=== PATIENT | male | born 1930 | race Caucasian/White ===

== ENCOUNTER 2017-08-21 12:26 | Emergency (ER) | payer MEDICARE, BC ==
[2017-08-21] MEDS ORDERED: ACETAMINOPHEN 500 MG TABLET PO ONE (13:04)
--- NOTE | 2017-08-21 13:09 | Emergency Department Record ---
History of Present Illness - General Chief Complaint: Fall Injury Stated Complaint: LEFT SIDE RIB PAIN Time Seen by Provider: 08/21/17 12:59 Source: Patient Mode of Arrival: Ambulatory Limitations: No limitations - History of Present Illness Initial Comments: 87 yo male presents with two days of left rib pain and tenderness. He was walking and tripped in a hallway hitting a hand rail. He hit his left ribs near the breast area. No head injury, contusions or abrasions. No abdominal tenderness or pain. No shortness of breath. No neck pain. No lacerations. No bruising. No blood thinners. 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 Witnessed: No Place Fall Occurred: Home Loss of Consciousness: None Prolonged Down Time?: No Symptoms Prior to Fall: None Location: Chest Quality: Aching Context: Tripped/slipped Associated Symptoms: Denies - [place] Coma Scale Eye Response: (4) Open spontaneously Motor Response: (6) Obeys commands Verbal Response: (5) Oriented [place] Total: 15 - Related Data Previous Rx's Medication Instructions Recorded Ciprofloxacin HCl [Cipro] 500 mg PO Q12H #20 tablet 06/23/15 Allergies Allergy/AdvReac Type Severity Reaction Status Date / Time No Known Drug Allergies Allergy Verified 08/21/17 12:45 Travel Screening - Travel/Exposure Within Last 30 Days Have you traveled within the last 30 days?: No - Travel/Exposure Within Last Year Have you traveled outside the [place] in the last year?: No - Additonal Travel Details Have you been exposed to anyone with a communicable illness?: No - Travel Symptoms Symptom Screening: None Review of Systems Constitutional: Denies: Chills, Fever, Weakness Eyes: Denies: Eye discharge ENT: Denies: Congestion, Throat pain Respiratory: Denies: Cough, Dyspnea, Hemoptysis, Stridor, Wheezes Cardiovascular: Reports: Chest pain (left ribs). Denies: Edema, Palpitations, Syncope Endocrine: Denies: Fatigue Gastrointestinal: Denies: Abdominal pain, Constipation, Diarrhea, Nausea, Vomiting Genitourinary: Denies: Dysuria, Frequency, Hematuria Musculoskeletal: Denies: Arthralgia, Back pain, Joint swelling, Myalgia Skin: Denies: Bruising, Change in color, Rash Neurological: Denies: Confusion, Headache, Numbness, Vertigo, Weakness Psychiatric: Denies: Anxiety Hematological/Lymphatic: Denies: Blood Clots, Easy bleeding, Easy bruising, Swollen glands Past Medical History - SOCIAL HISTORY Smoking Status: Former smoker Alcohol Use: None Drug Use: None - RESPIRATORY Hx Respiratory Disorders: Yes Hx COPD: Yes Hx Dyspnea: Yes (with exertion) - CARDIOVASCULAR Hx Cardio Disorders: No - NEURO Hx Neuro Disorders: No Comment:: some loss of memory - GI Hx GI Disorders: No - Hx Genitourinary Disorders: Yes Hx Bladder Problem: Yes (onset 03/29) Hx Prostate Problems: Yes (enlarged prostate) Hx UTI: Yes (finished antibiotics week ago) Comment:: currently has indwelling catheter since 03/29 - ENDOCRINE Hx Endocrine Disorders: No - MUSCULOSKELETAL Hx Musculoskeletal Disorders: Yes Hx Arthritis: Yes (hands) - PSYCH Hx Psych Problems: No - HEMATOLOGY/ONCOLOGY Hx Hematology/Oncology Disorders: No Family Medical History Any Significant Family History?: Yes Hx Cancer: Mother Hx Heart Disease: Father Hx HTN: Father Physical Exam - General General Appearance: Alert, Oriented x3, Cooperative, No acute distress, Other ( appears comfortable in no pain) Limitations: No limitations - Head Head exam: Atraumatic, Normocephalic, Normal inspection Head exam detail: negative: Abrasion, Contusion, Hematoma - Eye Eye exam: Normal appearance - ENT ENT exam: Normal exam, Mucous membranes moist Ear exam: Normal external inspection Nasal Exam: Normal inspection Mouth exam: Normal external inspection Throat exam: Normal inspection - Neck Neck exam: Normal inspection, Full ROM. negative: Tenderness - Respiratory Respiratory exam: Normal lung sounds bilaterally, Chest wall tenderness (tender lateral upper ribs on the left, normal inspection, no SQ air. NON tender LUQ). negative: Accessory muscle use, Decreased breath sounds, Prolonged expiratory , Rhonchi, Stridor, Wheezes - Cardiovascular Cardiovascular Exam: Regular rate, Normal rhythm, Normal heart sounds - GI/Abdominal GI/Abdominal exam: Soft. negative: Distended, Guarding, Rebound, Rigid, Tenderness - Rectal Rectal exam: Deferred - exam: Deferred - Extremities Extremities exam: Normal inspection, Full ROM, Normal capillary refill. negative: Joint swelling, Pedal edema, Tenderness - Back Back exam: Reports: Normal inspection, Full ROM. Denies: CVA tenderness (R), CVA tenderness (L), Muscle spasm, Paraspinal tenderness, Rash noted, Tenderness - Neurological Neurological exam: Alert, Normal gait, Oriented X3, Reflexes normal - Psychiatric Psychiatric exam: Normal affect, Normal mood - Skin Skin exam: Dry, Intact, Normal color, Warm. negative: Abrasion, Cyanosis, Diaphoretic, Erythema Course Vital Signs 08/21/17 12:46 Temperature 98 F Pulse Rate 65 Respiratory 20 Rate Blood Pressure 176/94 Pulse Ox 98 - Reevaluation(s) Reevaluation #1: 08/21/17 14:44 The XR was read as no acute process No definite Fx DC with instructions for pain control and IS per teaching with RT. 08/21/17 14:44 Disposition Disposition: Discharge Clinical Impression: Contusion of rib on left side Qualifiers: Encounter type: initial encounter Qualified Code(s): S20.212A - Contusion of left front wall of thorax, initial encounter Disposition: Home, Self-Care Condition: (1) Good Instructions: Fall Prevention for Older Adults (ED), Rib Contusion (ED) Additional Instructions: Call your doctor to be seen this week to review this ER visit Return sooner if worse, short of breath, cough, fever or any new concerns Use the Incentive Spirometer as taught to encourage good breathing Tylenol as directed for pain. Forms: Patient Portal Access Time of Disposition: 14:45 Quality - Quality Measures Quality Measures: N/A - Blood Pressure Screening Does Patient Have Any of the Following: No Blood Pressure Classification: Hypertensive Reading Systolic Measurement: 176 Diastolic Measurement: 94 Screening for High Blood Pressure: < Pre-Hypertensive BP, F/U Documented > [ G8950] Pre-Hypertensive Follow-up Interventions: Referral to alternative/primary care provider.
--- NOTE | 2017-08-22 10:04 | RADIOLOGY REPORT ---
EXAM: LEFT RIBS WITH PA CHEST HISTORY: PATIENT FELL TWO DAYS AGO STRIKING LEFT SIDE ON RAILING WITH UPPER LATERAL LEFT RIB PAIN. TECHNIQUE: AP oblique views of the left ribs and PA view of the chest were obtained. Comparison: None. Encounter: Initial. FINDINGS: Diffuse osteopenia consistent with osteoporosis. This limits evaluation for undisplaced rib fractures. No definite left rib fracture identified. No pneumothorax or pleural effusion evident. Calcification and torsion of the aorta. The lungs appear somewhat hyperinflated suggesting underlying COPD. IMPRESSION: OSTEOPOROSIS. NO DEFINITE ACUTE LEFT RIB FRACTURE IDENTIFIED. JOB NUMBER: [id number] MTDD
== END 2017-08-21 14:59 | disposition home or self-care (01) ==
LOC: ER 12:26
DX: S20.212A Contusion of left front wall of thorax, initial encounter (principal); J44.9 Chronic obstructive pulmonary disease, unspecified; Z87.891 Personal history of nicotine dependence; W01.198A Fall on same level from slipping, tripping and stumbling with subsequent striking against other object, initial encounter; Y92.009 Unspecified place in unspecified non-institutional (private) residence as the place of occurrence of the external cause
CPT/HCPCS: 94010; 99283; 99284

== ENCOUNTER 2017-08-23 17:06 | Emergency (ER) | payer MEDICARE, BC ==
[2017-08-23] MEDS ORDERED: ACETAMINOPHEN 325 MG TAB PO ONE (17:25)
--- NOTE | 2017-08-23 17:30 | Emergency Department Record ---
History of Present Illness - General Chief complaint: Pain Stated complaint: BRUISE LT SIDE RIBS/PAIN Time Seen by Provider: 08/23/17 17:19 Source: Patient, Family Mode of Arrival: Ambulatory Limitations: No limitations - History of Present Illness Initial comments: The patient is here due to worsening L rib pain. He fell 2 days ago and injured the L ribs. The patient was then seen in the ER and had neg xrays and was discharged to home. Now the pain is not getting better so the patient's wanted him seen again. He also is not using the IS like he is supposed to. The patient's family deny any cough, fever, CP, SOB, or LUIS. MD Complaint: Other Onset/Timin -: Days(s) Location: Left, Other Quality: Aching Consistency: Constant Improves with: Nothing Worsens with: Walking, Other Associated Symptoms: Denies other symptoms - Related Data Previous Rx's Medication Instructions Recorded Ciprofloxacin HCl [Cipro] 500 mg PO Q12H #20 tablet 06/23/15 Allergies Allergy/AdvReac Type Severity Reaction Status Date / Time No Known Drug Allergies Allergy Verified 08/21/17 12:45 Travel Screening - Travel/Exposure Within Last 30 Days Have you traveled within the last 30 days?: No Review of Systems Constitutional: Denies: Chills, Fever Eyes: Denies: Eye discharge ENT: Denies: Congestion Respiratory: Denies: Cough, Dyspnea, Hemoptysis Past Medical History - SOCIAL HISTORY Smoking Status: Former smoker Alcohol Use: None Drug Use: None - RESPIRATORY Hx Respiratory Disorders: Yes Hx COPD: Yes Hx Dyspnea: Yes (with exertion) - CARDIOVASCULAR Hx Cardio Disorders: No - NEURO Hx Neuro Disorders: No Comment:: some loss of memory - GI Hx GI Disorders: No - Hx Genitourinary Disorders: Yes Hx Bladder Problem: Yes (onset 03/29) Hx Prostate Problems: Yes (enlarged prostate) Hx UTI: Yes (finished antibiotics week ago) Comment:: currently has indwelling catheter since 03/29 - ENDOCRINE Hx Endocrine Disorders: No - MUSCULOSKELETAL Hx Musculoskeletal Disorders: Yes Hx Arthritis: Yes (hands) - PSYCH Hx Psych Problems: No - HEMATOLOGY/ONCOLOGY Hx Hematology/Oncology Disorders: No Family Medical History Any Significant Family History?: Yes Hx Cancer: Mother Hx Heart Disease: Father Hx HTN: Father Physical Exam - General General Appearance: Alert, Cooperative, No acute distress - Head Head exam: Atraumatic, Normocephalic, Normal inspection - Eye Eye exam: Normal appearance, PERRL - Neck Neck exam: Normal inspection, Full ROM. negative: Tenderness - Respiratory Respiratory exam: Normal lung sounds bilaterally, Chest wall tenderness ( Palpation of the L mid lateral ribs does reproduce the pain 100%. ). negative: Respiratory distress, Rhonchi, Stridor, Wheezes - Cardiovascular Cardiovascular Exam: Regular rate, Normal rhythm, Normal heart sounds - GI/Abdominal GI/Abdominal exam: Soft, Normal bowel sounds. negative: Tenderness - Extremities Extremities exam: Normal inspection, Full ROM, Normal capillary refill. negative: Tenderness Course Vital Signs 08/23/17 17:20 Temperature 97.9 F Pulse Rate 78 Respiratory 20 Rate Blood Pressure 172/107 Pulse Ox 96 - Reevaluation(s) Reevaluation #1: The patient is doing very well at this time. He denies any new pain or discomfort. I did discuss the CT report with the patient's and relayed the neg rib fx report. The CT does demonstrate multiple thoracic Compression fx's and the patient's states he has been complaining of back pain for a LONG time. They are to see their PCP next week for further evaluation and to bring the official CT report there. 08/23/17 18:15 Medical Decision Making - Data Complexity MDM Data: X-Ray Ordered and/or Reviewed - Radiology Data Radiology results: Report reviewed (CT: No rib fx's but multiple mild age indeterminent thoracic spine fx's.) Disposition Disposition: Discharge Clinical Impression: Contusion of rib on left side Qualifiers: Encounter type: subsequent encounter Qualified Code(s): S20.212D - Contusion of left front wall of thorax, subsequent encounter Disposition: Home, Self-Care Condition: (2) Stable Instructions: Pain Management in the Elderly (ED), Rib Contusion (ED) Additional Instructions: Please continue the Tylenol for pain. Please continue the Incentive Spirometer as previously instructed. Follow up with your PCP next week for recheck and return to the ER for any worsening symptoms. Forms: Patient Portal Access Time of Disposition: 18:14 Quality - Quality Measures Quality Measures: N/A - Blood Pressure Screening View Details: Yes Does Patient Have Any of the Following: No, Active Dx of HTN Blood Pressure Classification: Hypertensive Reading Systolic Measurement: 172 Diastolic Measurement: 107 Screening for High Blood Pressure: Patient Exclusion, Hx of HTN [G9945]
--- NOTE | 2017-08-24 22:18 | CT SCAN REPORT ---
EXAM: CT SCAN CHEST WO CONTRAST HISTORY: FALL. LEFT ANTERIOR RIB PAIN. TECHNIQUE: CT chest without contrast. Lack of IV contrast limits evaluation of the mediastinum and hilum. COMPARISON: Chest x-ray and rib series 08/21/17. FINDINGS: No convincing evidence for mediastinal or hilar adenopathy. Atheromatous change and ectasia of the thoracic aorta. Coronary artery calcification. The heart and pericardium are otherwise unremarkable. Limited evaluation of the upper abdomen shows severe atheromatous changes. Nodularity of the left adrenal gland. Osseous structures of the thorax show mild age- indeterminate compression deformities of T12, T11, T6, and T5. Negative for left rib fracture. No pneumothorax. The visualized airways are patent. Minor emphysematous changes in the lung apices. Lungs are otherwise clear. IMPRESSION: 1. NEGATIVE FOR LEFT RIB FRACTURE. 2. 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 JOB NUMBER: [id number] MTDD
== END 2017-08-23 18:26 | disposition home or self-care (01) ==
LOC: ER 17:06
DX: S20.212A Contusion of left front wall of thorax, initial encounter (principal); M48.54XA Collapsed vertebra, not elsewhere classified, thoracic region, initial encounter for fracture; J44.9 Chronic obstructive pulmonary disease, unspecified; Z87.891 Personal history of nicotine dependence; W01.198A Fall on same level from slipping, tripping and stumbling with subsequent striking against other object, initial encounter; Y92.009 Unspecified place in unspecified non-institutional (private) residence as the place of occurrence of the external cause
CPT/HCPCS: 71250; 99283

== ENCOUNTER 2017-11-12 11:18 | Emergency (ER) | payer MEDICARE, BC ==
--- NOTE | 2017-11-12 11:57 | Emergency Department Record ---
History of Present Illness - General Chief Complaint: Fall Injury Stated Complaint: FALL/BACK AND RIB PAIN Time Seen by Provider: 11/12/17 11:41 Source: Patient, Family Mode of Arrival: Ambulatory Limitations: No limitations - History of Present Illness Initial Comments: 87 yo male presents with back and left rib pain. He fell two days ago at home on steps. His pain is not better. He had similar location of pain in August after a fall. CT demonstrated compression fractures at T11,12 and T5,6. He has followed up with his PCP and had additional testing that demonstrated osteoporosis. He had elected not to take the shots for osteoporosis. He his his forehead. No headache or LOC. No neck pain. No cough, cold or recent flu. The patient lives with his . She states he is in his usual health. He does not require a walker or cane. No recent illness or abrupt changes in his health. MD Complaint: Fall Onset/Timin -: Days(s) Fall From: Other When Fall Occurred: Unsure, # Days [employer] Fall Witnessed: No Place Fall Occurred: Home Loss of Consciousness: None Prolonged Down Time?: No Symptoms Prior to Fall: None, Other Location: Head, Chest, Back Quality: Aching Associated Symptoms: Denies - [place] Coma Scale Eye Response: (4) Open spontaneously Motor Response: (6) Obeys commands Verbal Response: (5) Oriented [place] Total: 15 - Related Data Home Medications Medication Instructions Recorded Confirmed Last Taken Multivitamin [Multiple Vitamins] 1 each PO 11/12/17 11/12/17 Allergies Allergy/AdvReac Type Severity Reaction Status Date / Time No Known Drug Allergies Allergy Verified 08/21/17 12:45 Travel Screening - Travel/Exposure Within Last 30 Days Have you traveled within the last 30 days?: No - Travel/Exposure Within Last Year Have you traveled outside the [place] in the last year?: No - Additonal Travel Details Have you been exposed to anyone with a communicable illness?: No - Travel Symptoms Symptom Screening: None Review of Systems Constitutional: Denies: Chills, Fever, Malaise, Weakness Eyes: Denies: Eye discharge, Eye pain, Photophobia, Vision change ENT: Denies: Congestion, Throat pain Respiratory: Denies: Cough, Dyspnea Cardiovascular: Reports: Chest pain (rib pain). Denies: Palpitations, Syncope Endocrine: Denies: Fatigue, Polydipsia, Polyuria Gastrointestinal: Denies: Abdominal pain, Diarrhea, Nausea, Vomiting Genitourinary: Denies: Dysuria, Frequency, Hematuria Musculoskeletal: Reports: As per HPI, Back pain, Myalgia. Denies: Arthralgia, Neck pain Skin: Denies: Bruising, Change in color, Rash Neurological: Denies: Confusion, Headache, Numbness, Vertigo, Weakness Psychiatric: Denies: Anxiety Hematological/Lymphatic: Denies: Blood Clots, Easy bleeding, Easy bruising, Swollen glands Past Medical History - SOCIAL HISTORY Smoking Status: Former smoker Alcohol Use: None Drug Use: None - RESPIRATORY Hx Respiratory Disorders: Yes Hx COPD: Yes Hx Dyspnea: Yes (with exertion) - CARDIOVASCULAR Hx Cardio Disorders: No - NEURO Hx Neuro Disorders: No Comment:: some loss of memory - GI Hx GI Disorders: No - Hx Genitourinary Disorders: Yes Hx Bladder Problem: Yes (onset 03/29) Hx Prostate Problems: Yes (enlarged prostate) Hx UTI: Yes (finished antibiotics week ago) Comment:: currently has indwelling catheter since 03/29 - ENDOCRINE Hx Endocrine Disorders: No - MUSCULOSKELETAL Hx Musculoskeletal Disorders: Yes Hx Arthritis: Yes (hands) - PSYCH Hx Psych Problems: No - HEMATOLOGY/ONCOLOGY Hx Hematology/Oncology Disorders: No Family Medical History Any Significant Family History?: No Hx Cancer: Mother Hx Heart Disease: Father Hx HTN: Father Physical Exam - General General Appearance: Alert, Oriented x3, Cooperative, No acute distress, Other ( calm relaxed, answers questions well) Limitations: No limitations - Head Head exam: Normocephalic. negative: Atraumatic, Normal inspection Head exam detail: Abrasion Image of Face/Head: 1 - faint 3cm bruise, intact skin - Eye Eye exam: Normal appearance, PERRL. negative: Conjunctival injection, Periorbital swelling - ENT ENT exam: Normal exam, Mucous membranes moist, Normal external ear exam, Normal orophraynx. negative: Mucous membranes dry Ear exam: Normal external inspection Nasal Exam: Normal inspection Mouth exam: Normal external inspection Teeth exam: Normal inspection Throat exam: Normal inspection - Neck Neck exam: Normal inspection, Full ROM. negative: Tenderness - Respiratory Respiratory exam: Normal lung sounds bilaterally, Chest wall tenderness (left lateral ribs mid). negative: Respiratory distress - Cardiovascular Cardiovascular Exam: Regular rate, Normal rhythm, Normal heart sounds Peripheral Pulses: 2+: Radial (R), Radial (L) - GI/Abdominal GI/Abdominal exam: Soft. negative: Distended, Guarding, Rebound, Rigid, Tenderness - Rectal Rectal exam: Deferred - exam: Deferred - Extremities Extremities exam: Normal inspection, Full ROM, Normal capillary refill. negative: Joint swelling, Pedal edema, Tenderness - Back Back exam: Reports: Normal inspection, Full ROM, Paraspinal tenderness, Tenderness, Vertebral tenderness (mild mid to lower), Other (No brusing, normal inspection, very mild tenderness). Denies: CVA tenderness (R), CVA tenderness ( L), Muscle spasm, Rash noted - Neurological Neurological exam: Alert, Normal gait, Oriented X3. negative: Abnormal gait, Altered, Motor sensory deficit - Psychiatric Psychiatric exam: Normal affect, Normal mood. negative: Agitated, Anxious - Skin Skin exam: Dry, Intact, Normal color, Warm Course - Reevaluation(s) Reevaluation #1: The prior report was reviewed from August He is 97% on Room Air 11/12/17 11:57 11/12/17 12:[address] of the Head and Cervical spine were reviewed. No acute injuries or changes. 11/12/17 13:[address] of the chest was reviewed. New since August at small compression fractures of T4 and T8. No other acute injuries. I again encouraged that patient and to see their family doctor for ongoing evaluation of his osteoporosis. His vitals are unremarkable with 97% on room air. Pain is tolerated well. Disposition Disposition: Discharge Clinical Impression: Compression fracture Disposition: Home, Self-Care Condition: (1) Good Instructions: Vertebral Compression Fracture (ED), Fall Prevention for Older Adults (ED) Additional Instructions: Return to the ED if worse or uncontrolled pain Take Tylenol as directed Call your doctor first of the week for very close follow up of the compression fractures and your osteopenia Forms: Patient Portal Access Time of Disposition: 13:13 Quality - Quality Measures Quality Measures: N/A - Blood Pressure Screening Does Patient Have Any of the Following: No Blood Pressure Classification: Pre-Hypertensive BP Reading Systolic Measurement: 125 Diastolic Measurement: 80 Screening for High Blood Pressure: < Pre-Hypertensive BP, F/U Documented > [ G8950] Pre-Hypertensive Follow-up Interventions: Referral to alternative/primary care provider.
[2017-11-12] MEDS ORDERED: ACETAMINOPHEN 500 MG TABLET PO ONE (13:11)
--- NOTE | 2017-11-12 18:43 | CT SCAN REPORT ---
EXAM: CT SCAN HEAD WO CONTRAST HISTORY: FALL, FOREHEAD INJURY. TECHNIQUE: CT of the brain is performed without contrast. COMPARISON: None. FINDINGS: The ventricles and subarachnoid spaces are prominent, likely related to atrophy. Areas of hypodensity are present in the white matter, likely the result of chronic small vessel ischemic change. No mass or mass effect. No intra or extraaxial hemorrhage. No CT evidence for large acute territorial infarct. No fracture or acute osseous abnormality identified. Mild mucosal thickening in the right maxillary sinus and in a few of the ethmoid air cells. IMPRESSION: 1. ATROPHY AND CHRONIC SMALL VESSEL ISCHEMIC CHANGE. 2. NO MASS, HEMORRHAGE, OR ACUTE INTRACRANIAL PROCESS IDENTIFIED. JOB NUMBER: [id number] MTDD
--- NOTE | 2017-11-12 18:48 | CT SCAN REPORT ---
EXAM: CT SCAN CERVICAL SPINE WO CONTRAST HISTORY: FALL, POSTERIOR NECK PAIN. TECHNIQUE: CT of the cervical spine performed without contrast. COMPARISON: None. FINDINGS: There is reversal of the normal lordotic curvature. No fracture or acute osseous abnormality. Diffuse arthritic changes are present throughout the cervical spine. Disc space narrowing is present at all levels. Uncovertebral spurring and facet arthritic changes are present at multiple levels. There is no soft tissue swelling. Arthritic changes are present in the atlantoaxial joint. Neural foraminal narrowing is present at multiple levels. IMPRESSION: 1. REVERSAL OF THE NORMAL LORDOTIC CURVATURE, WHICH IS NONSPECIFIC, POSSIBLY DUE TO PATIENT POSITIONING OR MUSCLE SPASM. 2. DIFFUSE ARTHRITIC CHANGES THROUGHOUT THE CERVICAL SPINE. 3. NO FRACTURE OR ACUTE OSSEOUS ABNORMALITY. JOB NUMBER: [id number] [facility]
--- NOTE | 2017-11-12 18:57 | CT SCAN REPORT ---
EXAM: CT SCAN CHEST WO CONTRAST HISTORY: FALL, LEFT CHEST INJURY AND CHEST PAIN. TECHNIQUE: CT of the thorax is performed without intravenous contrast. COMPARISON: CT of the thorax 08/23/2017. FINDINGS: No mediastinal mass or hematoma. There are atherosclerotic changes in the thoracic aorta with no aneurysm identified. There are coronary artery calcifications. No lung consolidation. No suspicious lung mass or nodule. There is no pleural or pericardial effusion. No rib fracture seen. Limited upper abdominal images are unremarkable. Mild new compression deformity of T8 since the previous study. Mild compression deformity of T4 is new since the previous study. Old compression fractures of T5 , T6, T11, and T12. IMPRESSION: 1. MILD COMPRESSION DEFORMITIES OF T4 AND T8, WHICH ARE NEW SINCE THE PREVIOUS STUDY. OLD COMPRESSION FRACTURES OF T5, T6, T11, AND T12 ARE PRESENT. 2. OTHERWISE, NO ACUTE THORACIC PROCESS. 3. CORONARY ARTERY CALCIFICATIONS. 4. PLEASE SEE ABOVE FOR FULL DISCUSSION. JOB NUMBER: [id number] MTDD
== END 2017-11-12 13:25 | disposition home or self-care (01) ==
LOC: ER 11:18
DX: S22.040A Wedge compression fracture of fourth thoracic vertebra, initial encounter for closed fracture (principal); S22.060A Wedge compression fracture of T7-T8 vertebra, initial encounter for closed fracture; S00.83XA Contusion of other part of head, initial encounter; M54.2 Cervicalgia; J44.9 Chronic obstructive pulmonary disease, unspecified; F03.90 Unspecified dementia, unspecified severity, without behavioral disturbance, psychotic disturbance, mood disturbance, and anxiety; W10.9XXA Fall (on) (from) unspecified stairs and steps, initial encounter; Z87.891 Personal history of nicotine dependence; Y92.009 Unspecified place in unspecified non-institutional (private) residence as the place of occurrence of the external cause
CPT/HCPCS: 70450; 71250; 72125; 99283; 99284

== ENCOUNTER 2018-04-28 18:58 | Emergency (ER) | payer MEDICARE, BC ==
--- NOTE | 2018-04-28 19:26 | Emergency Department Record ---
History of Present Illness - General Chief Complaint: Confusion Stated Complaint: LATHARGIC,CONFUSION Time Seen by Provider: 04/28/18 19:21 Source: Family Mode of Arrival: Ambulatory Limitations: No limitations - History of Present Illness Initial Comments: 88 yo male with a history of dementia and COPD presents to ED for increased confusion per his . Patient denies chest pain, abdominal pain, fevers, chills, abdominal pain, or recent illness. Patient denies cough symptoms as well. MD Complaint: Confusion Onset/Timin -: Hour(s) Consistency: Intermittent Context: Other Associated Symptoms: Denies other symptoms - [place] Coma Scale Eye Response: (4) Open spontaneously Motor Response: (6) Obeys commands Verbal Response: (5) Oriented Trey Total: 15 - Symptoms of Stroke Onset of Symptoms Date: 04/28/18 Symptom Onset Unknown: Yes Symptoms of stroke: Onset of Confusion, Speech Dysfunction Baseline State End Date: 04/27/18 Baseline State End Time: 23:00 - Related Data Allergies Allergy/AdvReac Type Severity Reaction Status Date / Time No Known Drug Allergies Allergy Verified 08/21/17 12:45 Travel Screening - Travel/Exposure Within Last 30 Days Have you traveled within the last 30 days?: No - Travel/Exposure Within Last Year Have you traveled outside the [place] in the last year?: No - Additonal Travel Details Have you been exposed to anyone with a communicable illness?: No - Travel Symptoms Symptom Screening: None Review of Systems Constitutional: Denies: Chills, Fever, Malaise, Night sweats Eyes: Denies: Eye discharge, Eye pain ENT: Denies: Congestion, Ear pain, Epistaxis Respiratory: Denies: Cough, Dyspnea Cardiovascular: Denies: Chest pain, Dyspnea on exertion Endocrine: Denies: Fatigue, Heat or cold intolerance Gastrointestinal: Denies: Abdominal pain, Nausea, Vomiting Genitourinary: Denies: Incontinence, Retention Musculoskeletal: Denies: Arthralgia, Back pain Skin: Denies: Bruising, Change in color Neurological: Denies: Abnormal gait, Confusion, Headache, Seizure Psychiatric: Denies: Anxiety Hematological/Lymphatic: Denies: Anemia, Blood Clots Past Medical History - SOCIAL HISTORY Smoking Status: Former smoker Alcohol Use: None Drug Use: None - RESPIRATORY Hx Respiratory Disorders: Yes Hx COPD: Yes Hx Dyspnea: Yes (with exertion) - CARDIOVASCULAR Hx Cardio Disorders: No - NEURO Hx Neuro Disorders: Yes Hx Dementia: Yes Comment:: some loss of memory - GI Hx GI Disorders: No - Hx Genitourinary Disorders: Yes Hx Bladder Problem: Yes (onset 03/29) Hx Prostate Problems: Yes (enlarged prostate) Hx UTI: Yes - ENDOCRINE Hx Endocrine Disorders: No - MUSCULOSKELETAL Hx Musculoskeletal Disorders: Yes Hx Arthritis: Yes (hands) - PSYCH Hx Psych Problems: No - HEMATOLOGY/ONCOLOGY Hx Hematology/Oncology Disorders: No Family Medical History Any Significant Family History?: No Hx Cancer: Mother Hx Heart Disease: Father Hx HTN: Father Physical Exam - General General Appearance: Alert, Oriented x3, Cooperative, No acute distress, Other ( Alert, resting comfortably on examination, cacehtic appearing.) Limitations: No limitations - Head Head exam: Atraumatic, Normocephalic, Normal inspection Head exam detail: negative: Abrasion, Contusion, Thomason's sign, General tenderness, Hematoma, Laceration - Eye Eye exam: Normal appearance. negative: Conjunctival injection, Periorbital swelling, Periorbital tenderness, Scleral icterus - ENT Ear exam: negative: Auricular hematoma, Auricular trauma Nasal Exam: negative: Active bleeding, Discharge, Dried blood, Foreign body Mouth exam: negative: Drooling, Laceration, Muffled voice, Tongue elevation - Neck Neck exam: Normal inspection. negative: Meningismus, Tenderness - Respiratory Respiratory exam: Normal lung sounds bilaterally. negative: Rales, Respiratory distress, Rhonchi, Stridor - Cardiovascular Cardiovascular Exam: Regular rate, Normal rhythm, Normal heart sounds - GI/Abdominal GI/Abdominal exam: Soft, Other (Mild erythema/irritation to the ermias-umbilical region on examination). negative: Rebound, Rigid, Tenderness - Rectal Rectal exam: Deferred - exam: Deferred - Extremities Extremities exam: Normal inspection. negative: Calf tenderness, Pedal edema, Tenderness - Back Back exam: Denies: CVA tenderness (R), CVA tenderness (L) - Neurological Neurological exam: Alert, Normal gait - Psychiatric Psychiatric exam: Normal affect, Normal mood - Skin Skin exam: Normal color. negative: Abrasion Type of lesion: negative: abrasion Course Vital Signs 04/28/18 19:06 Temperature 98.6 F Pulse Rate 51 L Respiratory 20 Rate Blood Pressure 113/82 Pulse Ox 97 - Reevaluation(s) Reevaluation #1: 04/28/18 19:27 EKG: NSR 93 with PVCs Normal axis, normal intervals Nonspecific ST-T wave changes Reevaluation #2: 04/28/18 20:16 Labs reviewed: WBC 13.1 83% Neutrophils. Glucose 196 Labs are otherwise grossly unremarkable for an acute process. UA pending. Reevaluation #3: 04/28/18 20:24 CT Brain: No acute process Chronic deep white matter changes Awaiting UA sample to exclude infection, patient and his were updated on all results thus far. Reevaluation #4: 04/28/18 22:05 UA was reviewed: 3-6 RBCs 0-2 WBCs 0-2 Epithelial cells No bacteria Patient and his were updated on all results, patient appears improved per his SO, reports that he is more alert and less his confusion has resolved. Patient appears stable for discharge at this time. 04/28/18 22:08 Medical Decision Making - Lab Data Result diagrams: 04/28/18 19:37 04/28/18 19:38 Disposition Disposition: Discharge Clinical Impression: Dementia Qualifiers: Dementia type: unspecified type Dementia behavioral disturbance: without behavioral disturbance Qualified Code(s): F03.90 - Unspecified dementia without behavioral disturbance Disposition: Home, Self-Care Condition: (2) Stable Instructions: Dementia (ED) Additional Instructions: Return to ED if your symptoms worsen or if you have any concerns. Follow-up with your family doctor in 3-5 days as directed. Forms: Patient Portal Access Time of Disposition: 22:09 Quality - Quality Measures Quality Measures: N/A - Blood Pressure Screening Does Patient Have Any of the Following: No Blood Pressure Classification: Pre-Hypertensive BP Reading Systolic Measurement: 113 Diastolic Measurement: 82 Screening for High Blood Pressure: < Pre-Hypertensive BP, F/U Documented > [ G8950] Pre-Hypertensive Follow-up Interventions: Referral to alternative/primary care provider.
[2018-04-28 19:36] LABS: HEMATOCRIT 41.1 % (42.0-52.0); HEMOGLOBIN 13.6 gm/dl (14.0-18.0); MEAN CELL VOLUME 91.5 fl (81-97); MEAN CORPUSCULAR HGB CONC 33.1 g/dl (32-36); MEAN PLATELET VOLUME 10.3 fl (7.4-10.4); PLATELET COUNT 313 K/uL (130-400); RED BLOOD COUNT 4.49 M/uL (4.40-5.70); WHITE BLOOD COUNT W/O DIFF 13.1 K/uL (4.2-12.2)
[2018-04-28 19:37] LABS: MEAN CORPUSCULAR HEMOGLOBIN 30.2 pg (27-33)
[2018-04-28 19:49] LABS: BLOOD UREA NITROGEN 16 mg/dL (8-23); CREATININE 0.8 mg/dL (0.7-1.2); EST GLOMERULAR FILTRATION RATE > 60 mL/min
[2018-04-28 19:50] LABS: TOTAL PROTEIN 5.9 g/dL (6.6-8.7)
[2018-04-28 19:52] LABS: GLUCOSE,RANDOM 196 mg/dL (74-109)
[2018-04-28 19:55] LABS: ALB/GLOB RATIO 1.5 (1.1-1.8); ALBUMIN 3.5 g/dL (4.0-5.0); ALKALINE PHOSPHATASE 81 U/L (40-129); ALT/SGPT 20 U/L (<41); AST/SGOT 25 U/L (10.0-50.0)
[2018-04-28 21:52] LABS: URINE APPEARANCE CLEAR; URINE BILIRUBIN MODERATE (NEGATIVE); URINE BLOOD NEGATIVE (NEGATIVE); URINE COLOR YELLOW; URINE GLUCOSE (UA) NEGATIVE (NEGATIVE); URINE KETONE 15 mg/dL (NEGATIVE); URINE LEUKOCYTE ESTERASE TRACE (NEGATIVE); URINE NITRITE NEGATIVE (NEGATIVE)
[2018-04-28 21:55] LABS: URINE BACTERIA NONE SEEN; URINE EPITHELIAL CELLS 0 - 2 (FEW); URINE WBC 0 - 2 (0-2/hpf)
[2018-04-28] MEDS ORDERED: 0.9 % SODIUM CHLORIDE 1,000 ML BAG IV ONE (22:23)
--- NOTE | 2018-05-02 09:38 | CT SCAN REPORT ---
EXAM: EMERGENCY HEAD CT WITHOUT CONTRAST HISTORY: CONFUSION. TECHNIQUE: Axial CT scan of the head was performed without IV contrast. Comparison: Head CT 11/12/17. FINDINGS: No definite acute intracranial hemorrhage identified. No focal mass effect or midline shift apparent. No definite acute infarct or intracranial mass lesion seen. 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 No depressed calvarial fracture evident. IMPRESSION: 1. GENERALIZED ATROPHY WITH CHRONIC APPEARING DEEP WHITE MATTER CHANGES. 2. NO DEFINITE ACUTE INTRACRANIAL HEMORRHAGE OR FOCAL MASS EFFECT IDENTIFIED. JOB NUMBER: [id number] MTDD
== END 2018-04-28 23:27 | disposition home or self-care (01) ==
LOC: ER 18:58
DX: F03.90 Unspecified dementia, unspecified severity, without behavioral disturbance, psychotic disturbance, mood disturbance, and anxiety (principal); R10.33 Periumbilical pain; R47.9 Unspecified speech disturbances; J44.9 Chronic obstructive pulmonary disease, unspecified; Z87.891 Personal history of nicotine dependence
CPT/HCPCS: 70450; 80053; 81001; 82140; 84484; 85027; 93005; 93010; 99284; J7030

== ENCOUNTER 2018-05-16 10:10 | Observation (INO) | payer MEDICARE, BC ==
[2018-05-16] MEDS ORDERED: 0.9 % SODIUM CHLORIDE 1000ML 1,000 ML IV ONE (10:23)
[2018-05-16 10:37] LABS: URINE APPEARANCE CLOUDY; URINE BILIRUBIN NEGATIVE (NEGATIVE); URINE BLOOD SMALL (NEGATIVE); URINE COLOR YELLOW; URINE GLUCOSE (UA) NEGATIVE (NEGATIVE); URINE KETONE TRACE (NEGATIVE); URINE LEUKOCYTE ESTERASE LARGE (NEGATIVE); URINE NITRITE NEGATIVE (NEGATIVE); URINE UROBILINOGEN 0.2 E.U./dL (0.20 - 1.00)
[2018-05-16 10:38] LABS: BASO % 0.3 % (0-6); EOS % 0.8 % (0-6); GRAN % 79.7 % (47-80); HEMATOCRIT 41.5 % (42.0-52.0); HEMOGLOBIN 13.2 gm/dl (14.0-18.0); LYMPH % 12.2 % (16-45); MEAN CELL VOLUME 93.5 fl (81-97); MEAN CORPUSCULAR HEMOGLOBIN 29.7 pg (27-33); MEAN CORPUSCULAR HGB CONC 31.8 g/dl (32-36); MEAN PLATELET VOLUME 10.1 fl (7.4-10.4); PLATELET COUNT 311 K/uL (130-400); RED BLOOD COUNT 4.44 M/uL (4.40-5.70); RED CELL DISTRIBUTION WIDTH 15.8 % (11.5-14.5); WHITE BLOOD COUNT W/O DIFF 15.4 K/uL (4.2-12.2)
--- NOTE | 2018-05-16 10:40 | Emergency Department Record ---
History of Present Illness - General Chief Complaint: Confusion Stated Complaint: DEMENTIA WORSE Time Seen by Provider: 05/16/18 10:21 Source: Patient, Family () Mode of Arrival: Ambulatory Limitations: Altered mental status (dementia - hx per ) - History of Present Illness Initial Comments: To ED from home with who is primary resident care director. Pt with hx of dementia but "worse over past two days" per . Pt is not sleeping and was up all night. No fever but notes urinary incontenence which is not typical. Strong odor of urine. No LUIS or CP. No hx DM. No aggressive or threatening behavior. No hx of similar. MD Complaint: Confusion Onset/Timin -: Days(s) Severity: Moderate Consistency: Constant Associated Symptoms: Foul smelling urine, Incontinence - [place] Coma Scale Eye Response: (4) Open spontaneously Motor Response: (6) Obeys commands Verbal Response: (5) Oriented Trey Total: 15 - Related Data Home Medications Medication Instructions Recorded Confirmed Last Taken Albuterol Sulfate [Proair Hfa] 1 - 2 puff IH .EVERY 4-6 HOURS PRN 05/16/1805/16 Unknown Budesonide/Formoterol Fumarate 10.2 gm IH BID PRN 05/16/18 05/16/18 Unknown [Symbicort 160-4.5 Mcg Inhaler] Calcium Carbonate [Calcium] 500 mg PO DAILY 05/16/18 05/16/18 Unknown Lutein 3 mg PO DAILY 05/16/18 05/16/18 Unknown Mv-Min/FA/Vit K/Lycop/Lut/Zeax 1 each PO DAILY 05/16/18 05/16/18 Unknown [Ocuvite Eye + Multi Tablet] [place]-3 Fatty Acids/Fish Oil [Fish 1 each PO DAILY 05/16/18 05/16/18 Unknown Oil 1,000 mg Capsule] Teriparatide [Forteo] 2.4 ml SQ QHS 05/16/18 05/16/18 Unknown Vitamin E 100 unit PO DAILY 05/16/18 05/16/18 Unknown Allergies Allergy/AdvReac Type Severity Reaction Status Date / Time No Known Drug Allergies Allergy Verified 05/16/18 10:15 Travel Screening - Travel/Exposure Within Last 30 Days Have you traveled within the last 30 days?: No Review of Systems ROS unobtainable: Due to mental status (ROS per ) Constitutional: Denies: Chills, Fever, Malaise Eyes: Denies: Eye discharge, Eye pain ENT: Denies: Congestion Respiratory: Denies: Cough, Dyspnea Cardiovascular: Denies: Arrhythmia, Chest pain Endocrine: Reports: Polyuria. Denies: Fatigue, Polydipsia Gastrointestinal: Denies: Abdominal pain, Diarrhea, Nausea, Vomiting Genitourinary: Reports: Frequency, Urgency. Denies: Discharge, Dysuria, Hematuria Musculoskeletal: Denies: Arthralgia, Back pain Skin: Reports: Rash (periumbilical). Denies: Change in color Neurological: Reports: Confusion. Denies: Headache, Seizure, Tremors, Weakness Psychiatric: Denies: Anxiety, Suicidal thoughts Hematological/Lymphatic: Denies: Anemia Past Medical History - SOCIAL HISTORY Smoking Status: Former smoker Alcohol Use: None Drug Use: None - RESPIRATORY Hx Respiratory Disorders: Yes Hx COPD: Yes Hx Dyspnea: Yes (with exertion) - CARDIOVASCULAR Hx Cardio Disorders: No - NEURO Hx Neuro Disorders: Yes Hx Dementia: Yes Comment:: some loss of memory - GI Hx GI Disorders: No - Hx Genitourinary Disorders: Yes Hx Bladder Problem: Yes (onset 03/29) Hx Prostate Problems: Yes (enlarged prostate) Hx UTI: Yes - ENDOCRINE Hx Endocrine Disorders: No - MUSCULOSKELETAL Hx Musculoskeletal Disorders: Yes Hx Arthritis: Yes (hands) - PSYCH Hx Psych Problems: No - HEMATOLOGY/ONCOLOGY Hx Hematology/Oncology Disorders: No Family Medical History Any Significant Family History?: Yes Hx Cancer: Mother Hx Heart Disease: Father Hx HTN: Father Physical Exam - General General Appearance: Alert, No acute distress (O x 2) - Head Head exam: Atraumatic Head exam detail: negative: Contusion (Bilateral cataract surgery, left lower lid prior resection. NO CHANGE per ), Hematoma, Laceration - ENT ENT exam: Normal exam, Mucous membranes moist Ear exam: Other (hearing aids bilateral, no drainage. ) Nasal Exam: Normal inspection Throat exam: Normal inspection - Neck Neck exam: Normal inspection - Respiratory Respiratory exam: Normal lung sounds bilaterally. negative: Respiratory distress, Rhonchi - Cardiovascular Cardiovascular Exam: Regular rate, Normal rhythm. negative: Irregular rhythm, Tachycardia Peripheral Pulses: 2+: Radial (R), Radial (L), Dorsalis Pedis (R), Dorsalis Pedis (L) - GI/Abdominal GI/Abdominal exam: Soft, Normal bowel sounds. negative: Rebound (right inguinal hernia, easily reduces, no pain. ), Tenderness - Rectal Rectal exam: Deferred - exam: Circumcision, Normal inspection. negative: Scrotal swelling, Urethral discharge - Extremities Extremities exam: Normal inspection (toe nails x 10 with advanced fungal infections., no skin changes or cellulitis. ) - Back Back exam: Reports: Normal inspection. Denies: Paraspinal tenderness - Neurological Neurological exam: Alert. negative: Motor sensory deficit - Psychiatric Psychiatric exam: Normal affect. negative: Agitated - Skin Skin exam: negative: Erythema, Rash, Urticaria Course Vital Signs 05/16/18 10:19 Temperature 97.4 F L Pulse Rate 99 H Respiratory 18 Rate Blood Pressure 119/69 Pulse Ox 96 - Reevaluation(s) Reevaluation #1: 05/16/18 11:01 Pt with with change in mental status. Lab with elevated WBC and urine infection. Plan for admission. LEIGHANN Jimenez paged. Blood and urine cultures obtained and AB ordered. agrees with plan. All questions answered. Reevaluation #2: 05/16/18 11:50 Discussed admission and plan with LEIGHANN Jimenez. Agrees and accepts. Procedures - EKG Initial Date: 05/16/18 Time: 10:43 EKG: No Acute Changes (no change 06/06/15) Medical Decision Making - Lab Data Result diagrams: 05/16/18 10:35 05/16/18 10:35 Disposition Disposition: Admit Clinical Impression: Change in mental status, UTI (urinary tract infection), Leukocytosis Disposition: Still a Patient at [facility] Decision to Admit: Admit from ER Decision to Admit Date: 05/16/18 Decision to Admit Time: 11:03 Accepting Physician: Dr. Kaminski Time Discussed w/Accepting Physician: 11:04 (LEIGHANN Jimenez) Condition: (2) Stable Forms: Patient Portal Access Quality - Quality Measures Quality Measures: N/A - Blood Pressure Screening Does Patient Have Any of the Following: No Blood Pressure Classification: Normal BP Reading Systolic Measurement: 119 Diastolic Measurement: 69 Screening for High Blood Pressure: < Normal BP, F/U Not Required > [G8783]
[2018-05-16 10:44] LABS: URINE BACTERIA 4+; URINE EPITHELIAL CELLS 0 - 2 (FEW); URINE RBC >50 (NONE SEEN)
[2018-05-16] MEDS ORDERED: CEFTRIAXONE SODIUM 1 GM in 0.9 % SODIUM CHLORIDE 100ML 100 ML IVPB ONE (10:47)
[2018-05-16 10:50] LABS: BLOOD UREA NITROGEN 30 mg/dL (8-23); CREATININE 0.5 mg/dL (0.7-1.2); EST GLOMERULAR FILTRATION RATE > 60 mL/min
[2018-05-16 10:51] LABS: TOTAL PROTEIN 5.8 g/dL (6.6-8.7)
[2018-05-16 10:53] LABS: GLUCOSE,RANDOM 147 mg/dL (74-109)
[2018-05-16 10:55] LABS: ALT/SGPT 21 U/L (<41)
[2018-05-16 10:56] LABS: ALB/GLOB RATIO 1.1 (1.1-1.8); ALBUMIN 3.1 g/dL (4.0-5.0); ALKALINE PHOSPHATASE 140 U/L (40-129); AST/SGOT 40 U/L (10.0-50.0)
[2018-05-16] MEDS ORDERED: CEFTRIAXONE SODIUM 1 GM in 0.9 % SODIUM CHLORIDE 100ML 100 ML IVPB SCH (12:26)
[2018-05-16] MEDS ORDERED: ACETAMINOPHEN 325 MG TAB PO PRN (12:26)
[2018-05-16] MEDS ORDERED: PNEUM 23-VAL ADULT IM ONE (14:14)
[2018-05-16] MEDS: 0.9 % SODIUM CHLORIDE 1000ML 1,000 ML IV PRN (17:49)
[2018-05-16] MEDS ORDERED: TERIPARATIDE SQ SCH (22:00)
[2018-05-16] MEDS ORDERED: LATANOPROST 0.005% OPTH SOLUTION 2.5ML BOTTLE OPTH SCH (22:00)
[2018-05-16] MEDS: CEFTRIAXONE 1GM/50ML BAG 1 GM/50 ML BAG IVPB SCH (23:38)
[2018-05-17] MEDS: 0.9 % SODIUM CHLORIDE 1000ML 1,000 ML IV PRN (04:00)
[2018-05-17 07:11] LABS: BASO % 0.6 % (0-6); EOS % 2.8 % (0-6); GRAN % 55.1 % (47-80); HEMATOCRIT 31.4 % (42.0-52.0); HEMOGLOBIN 9.7 gm/dl (14.0-18.0); LYMPH % 29.7 % (16-45); MEAN CELL VOLUME 93.7 fl (81-97); MEAN CORPUSCULAR HGB CONC 30.9 g/dl (32-36); MEAN PLATELET VOLUME 10.4 fl (7.4-10.4); MONO % 11.8 % (0-9); PLATELET COUNT 224 K/uL (130-400); RED BLOOD COUNT 3.35 M/uL (4.40-5.70); RED CELL DISTRIBUTION WIDTH 15.8 % (11.5-14.5); WHITE BLOOD COUNT W/O DIFF 6.3 K/uL (4.2-12.2)
[2018-05-17 07:20] LABS: MEAN CORPUSCULAR HEMOGLOBIN 28.9 pg (27-33)
[2018-05-17 07:28] LABS: ALB/GLOB RATIO 1.4 (1.1-1.8); ALBUMIN 2.3 g/dL (4.0-5.0); ALKALINE PHOSPHATASE 102 U/L (40-129); ALT/SGPT 12 U/L (<41); AST/SGOT 18 U/L (10.0-50.0); BLOOD UREA NITROGEN 24 mg/dL (8-23); CREATININE 0.4 mg/dL (0.7-1.2); EST GLOMERULAR FILTRATION RATE > 60 mL/min; GLUCOSE,RANDOM 86 mg/dL (74-109)
--- NOTE | 2018-05-17 07:38 | RADIOLOGY REPORT ---
EXAM: CHEST, TWO VIEWS HISTORY: WEAKNESS AND CONFUSION. POSSIBLE URINARY TRACT INFECTION. MENTAL STATUS CHANGES. TECHNIQUE: AP and lateral upright views of the chest were obtained. Comparison: Previous chest CT dated 11/12/17 and chest x-ray dated 08/21/17. FINDINGS: The heart is normal in size. There is calcification and mild tortuosity of the aorta. There is chronic eventration of the right hemidiaphragm and mild elevation of the left hemidiaphragm. These are unchanged. The lungs are hyperinflated consistent with underlying COPD. There are no acute infiltrates or effusions. There is no pneumothorax. There are multiple chronic compression deformities within the thoracic spine. IMPRESSION: 1. STABLE COPD. 2. NO ACUTE INTRATHORACIC PATHOLOGY. 3. 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 J[facility]BER: [id number] [facility]
--- NOTE | 2018-05-17 09:45 | History & Physical ---
History of Present Illness - Date of Service Date of Service for History & Physical: 05/17/18 - History of Present Illness Admitting Diagnosis: Mental status change with UTI and leukocytosis History of Present Illness: Yuniel Perales is an 88 y.o. male who was brought to the ER on 05/16/2018 by his d/t worsening confusion x 2 days, poor sleep, urinary incontinence and foul smelling urine. Pt's reported that he did not have a fever, had not been complaining of LUIS or CP and no c/o abdominal or flank pain. At baseline, pt has Dementia. Other PMHx includes COPD enlarged prostate and arthritis. Blood cultures x 2 = Negative CXR - Negative EKG - NSR WBC 15.4 05/17/18 Vitals: 98.3, 75, 135/68, 16, 91-94% on RA Pt is a poor historian, is not at bedside. However, pt is pleasant, alert and oriented to person and place. Reports that he came to the hospital to get a good breakfast. He denies back, flank or abdominal pain. Denies burning with urination. Denies headache, dizziness, chills or cough. States "I feel really good". Travel Screening - Travel/Exposure Within Last 30 Days Have you traveled within the last 30 days?: No - Travel/Exposure Within Last Year Have you traveled outside the [place] in the last year?: No - Additonal Travel Details Have you been exposed to anyone with a communicable illness?: No - Travel Symptoms Symptom Screening: None Review of Systems ROS unobtainable: Due to endotracheal tube, Due to mental status Constitutional: Reports: Malaise. Denies: Chills, Fever Eyes: Reports: Eye discharge, Eye pain ENT: Reports: Congestion Respiratory: Denies: Cough, Dyspnea Endocrine: Denies: Fatigue, Polydipsia Gastrointestinal: Denies: Abdominal pain, Nausea Genitourinary: Denies: Dysuria Musculoskeletal: Denies: Arthralgia, Back pain Skin: Reports: Rash (periumbilical). Denies: Change in color Neurological: Reports: Confusion. Denies: Headache Past Medical History - SOCIAL HISTORY Smoking Status: Former smoker - RESPIRATORY Hx Respiratory Disorders: Yes Hx COPD: Yes Hx Dyspnea: Yes (with exertion) - CARDIOVASCULAR Hx Cardio Disorders: No - NEURO Hx Neuro Disorders: Yes Hx Dementia: Yes Comment:: some loss of memory - GI Hx GI Disorders: No - Hx Genitourinary Disorders: Yes Hx Bladder Problem: Yes (onset 03/29) Hx Prostate Problems: Yes (enlarged prostate) Hx UTI: Yes - ENDOCRINE Hx Endocrine Disorders: No - MUSCULOSKELETAL Hx Musculoskeletal Disorders: Yes Hx Arthritis: Yes (hands) - PSYCH Hx Psych Problems: No - HEMATOLOGY/ONCOLOGY Hx Hematology/Oncology Disorders: No Family Medical History Any Significant Family History?: Yes Hx Cancer: Mother Hx Heart Disease: Father Hx HTN: Father H&P Meds/Allergies - Allergies Allergies: Allergies Allergy/AdvReac Type Severity Reaction Status Date / Time No Known Drug Allergies Allergy Verified 05/16/18 10:15 - Home Medications Home Medications Medication Instructions Recorded Confirmed Last Taken Albuterol Sulfate [Proair Hfa] 1 - 2 puff IH .EVERY 4-6 HOURS PRN 05/16/1805/16 Unknown Budesonide/Formoterol Fumarate 10.2 gm IH BID PRN 05/16/18 05/16/18 Unknown [Symbicort 160-4.5 Mcg Inhaler] Calcium Carbonate [Calcium] 500 mg PO DAILY 05/16/18 05/16/18 Unknown Lutein 3 mg PO DAILY 05/16/18 05/16/18 Unknown Mv-Min/FA/Vit K/Lycop/Lut/Zeax 1 each PO DAILY 05/16/18 05/16/18 Unknown [Ocuvite Eye + Multi Tablet] [place]-3 Fatty Acids/Fish Oil [Fish 1 each PO DAILY 05/16/18 05/16/18 Unknown Oil 1,000 mg Capsule] Teriparatide [Forteo] 2.4 ml SQ QHS 05/16/18 05/16/18 Unknown Vitamin E 100 unit PO DAILY 05/16/18 05/16/18 Unknown - Active Medications Active Medications: Current Medications Acetaminophen (Tylenol 325mg) 650 mg PO Q4H PRN PRN Reason: PAIN - MILD(1-4)/FEVER Sodium Chloride () 1,000 mls @ 100 mls/hr IV .Q10H PRN PRN Reason: LARGE VOLUME IV Last Admin: 05/17/18 04:00 Dose: 100 mls/hr CEFTRIAXONE 1GM/50ML BAG (Ceftriaxone 1 Gm-D5w Bag) 1 gm in 50 mls @ 100 mls/ hr IVPB Q12H [facility] Last Infusion: 05/17/18 00:10 Dose: Infused Latanoprost (Xalatan) 1 drop OPTH QHS [facility] Last Admin: 05/16/18 23:37 Dose: 1 drop Non-Formulary Medication (Teriparatide [Forteo]) 2.4 ml SQ QHS [facility] Last Admin: 05/16/18 23:39 Dose: Not Given Physical Exam - Vital Signs Vital Signs: Vital Signs - Last 24 Hrs Temp Pulse Pulse Resp BP BP Pulse Ox 05/17/18 04:00 98.3 F 75 16 135/68 91 L 05/16/18 20:00 98.0 F 70 16 147/90 94 L 05/16/18 15:18 85 18 05/16/18 12:26 97.6 F 85 20 131/82 92 L 05/16/18 12:05 98.2 F 61 20 123/71 97 05/16/18 10:19 97.4 F L 99 H 18 119/69 96 - General General Appearance: Alert (person and place), No acute distress (O x 2) Limitations: Altered mental status - Head Head exam: Atraumatic Head exam detail: negative: Contusion (Bilateral cataract surgery, left lower lid prior resection. NO CHANGE per ), Hematoma, Laceration - ENT ENT exam: Normal exam, Mucous membranes moist Ear exam: Other (hearing aids bilateral, no drainage. ) - Neck Neck exam: Normal inspection - Respiratory Respiratory exam: Normal lung sounds bilaterally, Decreased breath sounds. negative: Accessory muscle use, Respiratory distress, Rhonchi, Wheezes - Cardiovascular Cardiovascular Exam: Regular rate, Normal rhythm, Normal heart sounds. negative : Irregular rhythm, Tachycardia Peripheral Pulses: 2+: Radial (R), Radial (L), Dorsalis Pedis (R), Dorsalis Pedis (L) - GI/Abdominal GI/Abdominal exam: Soft, Normal bowel sounds. negative: Rebound (right inguinal hernia, easily reduces, no pain. ), Tenderness - Rectal Rectal exam: Deferred - exam: Circumcision, Normal inspection. negative: Scrotal swelling, Urethral discharge - Extremities Extremities exam: Normal inspection (toe nails x 10 with advanced fungal infections., no skin changes or cellulitis. ) - Back Back exam: Reports: Normal inspection. Denies: Paraspinal tenderness - Neurological Neurological exam: Alert. negative: Motor sensory deficit - Psychiatric Psychiatric exam: Normal affect. negative: Agitated - Skin Skin exam: negative: Erythema, Rash, Urticaria Results - Labs Result Diagrams: 05/17/18 06:09 05/17/18 06:09 Labs Last 24 Hours: Laboratory Results - last 24 hr 05/16/18 05/16/18 05/16/18 10:30 10:35 10:35 WBC 15.4 H RBC 4.44 Hgb 13.2 L Hct 41.5 L MCV 93.5 MCH 29.7 MCHC 31.8 L RDW 15.8 H Plt Count 311 MPV 10.1 Gran % 79.7 Lymphocytes % 12.2 L Monocytes % 7.0 Eosinophils % 0.8 Basophils % 0.3 Sodium 145 Potassium 3.9 Chloride 102 Carbon Dioxide 33.0 H Anion Gap 10.0 BUN 30 H Creatinine 0.5 L Estimated GFR > 60 POC Glucose Random Glucose 147 H Calcium 9.3 Total Bilirubin 0.60 AST 40 ALT 21 Alkaline Phosphatase 140 H Total Protein 5.8 L Albumin 3.1 L Globulin 2.7 Albumin/Globulin Ratio 1.1 Urine Color Yellow Urine Appearance Cloudy Urine pH 7.0 Ur Specific [place] 1.025 Urine Protein 100 mg/dl H Urine Glucose (UA) Negative Urine Ketones Trace H Urine Blood Small H Urine Nitrite Negative Urine Bilirubin Negative Urine Urobilinogen 0.2 Ur Leukocyte Esterase Large H Urine RBC >50 Urine WBC Too numerous to cnt Ur Epithelial Cells 0 - 2 Urine Bacteria 4+ 05/16/18 05/17/18 05/17/18 10:35 06:09 06:09 WBC 6.3 RBC 3.35 L Hgb 9.7 L Hct 31.4 L MCV 93.7 MCH 28.9 MCHC 30.9 L RDW 15.8 H Plt Count 224 MPV 10.4 Gran % 55.1 Lymphocytes % 29.7 Monocytes % 11.8 H Eosinophils % 2.8 Basophils % 0.6 Sodium 142 Potassium 3.6 Chloride 105 Carbon Dioxide 28.0 Anion Gap 9.0 BUN 24 H Creatinine 0.4 L Estimated GFR > 60 POC Glucose 134 H Random Glucose 86 Calcium 8.0 L Total Bilirubin 0.40 AST 18 ALT 12 Alkaline Phosphatase 102 Total Protein 4.0 L Albumin 2.3 L Globulin 1.7 Albumin/Globulin Ratio 1.4 Urine Color Urine Appearance Urine pH Ur Specific [place] Urine Protein Urine Glucose (UA) Urine Ketones Urine Blood Urine Nitrite Urine Bilirubin Urine Urobilinogen Ur Leukocyte Esterase Urine RBC Urine WBC Ur Epithelial Cells Urine Bacteria - Imaging and Cardiology Chest x-ray Status: Report reviewed, Image reviewed VTE H&P Assessment - Risk for VTE Risk for VTE: Yes Risk Level: High Risk Assessment Date: 05/17/18 Risk Assessment Time: 10:05 VTE Orders Placed or Will Be Placed: Yes VTE Reason for No Prophylaxis: Not Indicated (Pt ambulatory and is obv pt) AMI H&P Plan - EKG Initial Date: 05/16/18 Time: 10:43 EKG: No Acute Changes (no change 06/06/15) Plan - Inpatient Certification Inpatient Certification: Admit to inpatient care: Based on my medical assessment, after consideration of patient's risk factors (age, co-morbidities and patient presenting symptoms and acuity), I expect that this patient will remain in the hospital greater than or equal to two midnights and that the services needed warrant inpatient care because: Patient Risk Factors: [] Estimated length of stay: [] The patient may reasonably be expected to be discharged or transferred to a hospital within 96 hours after admission to [facility]. Services needed: [] Post hospital care (if known): [] I certify that my determination is in accordance with my understanding of Medicare requirements for reasonable and necessary inpatient services. - Detailed Diagnosis and Plan (1) UTI (urinary tract infection) Current Visit: Yes Status: Acute Base Code: N39.0 - URINARY TRACT INFECTION , SITE NOT SPECIFIED Comment: 05/17/2018: -U/A = Large Leukocytes, Small Blood -Urine Culture pending -Afebrile, WBC trending down to normal range -Rocephin 1gm started in the ED -Stop IV Rocephin -Start Cefdinir 300mg PO BID x 9 more days to total 10 days of Cephalosporin treatment (2) Leukocytosis Current Visit: Yes Status: Acute Base Code: D72.829 - ELEVATED WHITE BLOOD CELL COUNT, UNSPECIFIED Comment: 05/17/18: -WBC trending down from 15.4 to 6.3 -Afebrile -U/A = Large Leukocytes, small blood -Urine Culture pending -Change antibiotic from IV Rocephin to Oral Cefdinir (3) Change in mental status Current Visit: Yes Status: Acute Base Code: R41.82 - ALTERED MENTAL STATUS, UNSPECIFIED (4) Dementia Current Visit: Yes Status: Acute Qualifiers: Dementia type: unspecified type Dementia behavioral disturbance: without behavioral disturbance Qualified Code(s): F03.90 - Unspecified dementia without behavioral disturbance Base Code: F03.90 - UNSPECIFIED DEMENTIA WITHOUT BEHAVIORAL DISTURBANCE Comment: 05/17/18: -Alert & Oriented to self and place -Able to answer yes/no questions (5) Full code status Current Visit: Yes Status: Acute Base Code: Z78.9 - OTHER SPECIFIED HEALTH STATUS Comment: 05/17/18: Pt is a full code this admission (6) DVT prophylaxis Current Visit: Yes Status: Acute Base Code: [id number] - Comment: 05/17/18: -Pt ambulatory, nursing to encourage ambulation and position changes -Pt likely D/C this afternoon
[2018-05-17] MEDS ORDERED: BREO (FLUTICASONE/VILANTEROL) 200MCG/25MCG INHALER INH SCH (10:00)
[2018-05-17] MEDS ORDERED: MULTIVITAMIN PO SCH (10:00)
[2018-05-17] MEDS ORDERED: [UNRECOGNIZED DRUG - MIXTURE] PO SCH (10:00)
[2018-05-17] MEDS ORDERED: VITAMIN E 100 UNIT PO SCH (10:00)
[2018-05-17] MEDS ORDERED: CEFDINIR 300 MG CAPSULE PO SCH (10:30)
[2018-05-17] MEDS: CEFTRIAXONE 1GM/50ML BAG 1 GM/50 ML BAG IVPB SCH (11:17)
--- NOTE | 2018-05-17 11:40 | Discharge Summary ---
Providers Discharge Summary Date: 05/17/18 Date of admission: 05/16/18 12:06 Attending physician: DAREK HUTCHINSON Primary care physician: STEVE MART D.O. Physical Exam - Vital Signs Vital Signs: Vital Signs - Last 24 Hrs Temp Pulse Pulse Resp BP BP Pulse Ox 05/17/18 10:42 98.3 F 135/68 05/17/18 09:00 75 18 05/17/18 04:00 98.3 F 75 16 135/68 91 L 05/16/18 20:00 98.0 F 70 16 147/90 94 L 05/16/18 15:18 85 18 05/16/18 12:26 97.6 F 85 20 131/82 92 L 05/16/18 12:05 98.2 F 61 20 123/71 97 - General General Appearance: Alert (person and place), No acute distress (O x 2) Limitations: Altered mental status - Head Head exam: Atraumatic Head exam detail: negative: Contusion (Bilateral cataract surgery, left lower lid prior resection. NO CHANGE per ), Hematoma, Laceration - ENT ENT exam: Normal exam, Mucous membranes moist Nasal Exam: Normal inspection Throat exam: Normal inspection - Neck Neck exam: Normal inspection - Respiratory Respiratory exam: Normal lung sounds bilaterally, Decreased breath sounds. negative: Accessory muscle use, Respiratory distress, Rhonchi, Wheezes - Cardiovascular Cardiovascular Exam: Regular rate, Normal rhythm, Normal heart sounds. negative : Irregular rhythm, Tachycardia Peripheral Pulses: 2+: Radial (R), Radial (L), Dorsalis Pedis (R), Dorsalis Pedis (L) - GI/Abdominal GI/Abdominal exam: Soft, Normal bowel sounds. negative: Rebound (right inguinal hernia, easily reduces, no pain. ), Tenderness - Rectal Rectal exam: Deferred - exam: Circumcision, Normal inspection. negative: Scrotal swelling, Urethral discharge - Extremities Extremities exam: Normal inspection (toe nails x 10 with advanced fungal infections., no skin changes or cellulitis. ) - Back Back exam: Reports: Normal inspection. Denies: Paraspinal tenderness - Neurological Neurological exam: Alert. negative: Motor sensory deficit - Psychiatric Psychiatric exam: Normal affect. negative: Agitated - Skin Skin exam: negative: Erythema, Rash, Urticaria Hospitalization - Hospitalization Admission Diagnosis: Mental status change with UTI and leukocytosis - Problem List/Discharge Diagnosis (1) UTI (urinary tract infection) Current Visit: Yes Status: Acute Base Code: N39.0 - URINARY TRACT INFECTION , SITE NOT SPECIFIED Comment: 05/17/2018: -U/A = Large Leukocytes, Small Blood -Urine Culture pending -Afebrile, WBC trending down to normal range -Rocephin 1gm started in the ED -Stop IV Rocephin -Start Cefdinir 300mg PO BID x 9 more days to total 10 days of Cephalosporin treatment (2) Leukocytosis Current Visit: Yes Status: Acute Base Code: D72.829 - ELEVATED WHITE BLOOD CELL COUNT, UNSPECIFIED Comment: 05/17/18: -WBC trending down from 15.4 to 6.3 -Afebrile -U/A = Large Leukocytes, small blood -Urine Culture pending -Change antibiotic from IV Rocephin to Oral Cefdinir (3) Change in mental status Current Visit: Yes Status: Acute Base Code: R41.82 - ALTERED MENTAL STATUS, UNSPECIFIED (4) Dementia Current Visit: Yes Status: Acute Discharge Diagnosis: Dementia type: unspecified type Dementia behavioral disturbance: without behavioral disturbance Qualified Code(s): F03.90 - Unspecified dementia without behavioral disturbance Base Code: F03.90 - UNSPECIFIED DEMENTIA WITHOUT BEHAVIORAL DISTURBANCE Comment: 05/17/18: -Alert & Oriented to self and place -Able to answer yes/no questions (5) Full code status Current Visit: Yes Status: Acute Base Code: Z78.9 - OTHER SPECIFIED HEALTH STATUS Comment: 05/17/18: Pt is a full code this admission (6) DVT prophylaxis Current Visit: Yes Status: Acute Base Code: [id number] - Comment: 05/17/18: -Pt ambulatory, nursing to encourage ambulation and position changes -Pt likely D/C this afternoon - Hospitalization Course Procedures: Imaging and X-Rays 05/16/18 10:21 CHEST 2 VIEWS [RAD] Stat Cardiology Procedures 05/16/18 10:21 Projector Booth Operator NOW EKG NOW Abnormal Labs: Abnormal Lab Results 05/16/18 05/16/18 05/16/18 Range/Units 10:30 10:35 10:35 WBC 15.4 H (4.2-12.2) K/uL RBC (4.40-5.70) M/uL Hgb 13.2 L (14.0-18.0) gm/dl Hct 41.5 L (42.0-52.0) % MCHC 31.8 L (32-36) g/dl RDW 15.8 H (11.5-14.5) % Lymphocytes % 12.2 L (16-45) % Monocytes % (0-9) % Carbon Dioxide 33.0 H (22-29) mmol/L BUN 30 H (8-23) mg/dL Creatinine 0.5 L (0.7-1.2) mg/dL POC Glucose (70-110) mg/dL Random Glucose 147 H (74-109) mg/dL Calcium (8.8-10.2) mg/dL Alkaline Phosphatase 140 H (40-129) U/L Total Protein 5.8 L (6.6-8.7) g/dL Albumin 3.1 L (4.0-5.0) g/dL Urine Protein 100 mg/dl H (NEGATIVE) Urine Ketones Trace H (NEGATIVE) Urine Blood Small H (NEGATIVE) Ur Leukocyte Esterase Large H (NEGATIVE) 05/16/18 05/17/18 05/17/18 Range/Units 10:35 06:09 06:09 WBC (4.2-12.2) K/uL RBC 3.35 L (4.40-5.70) M/uL Hgb 9.7 L (14.0-18.0) gm/dl Hct 31.4 L (42.0-52.0) % MCHC 30.9 L (32-36) g/dl RDW 15.8 H (11.5-14.5) % Lymphocytes % (16-45) % Monocytes % 11.8 H (0-9) % Carbon Dioxide (22-29) mmol/L BUN 24 H (8-23) mg/dL Creatinine 0.4 L (0.7-1.2) mg/dL POC Glucose 134 H (70-110) mg/dL Random Glucose (74-109) mg/dL Calcium 8.0 L (8.8-10.2) mg/dL Alkaline Phosphatase (40-129) U/L Total Protein 4.0 L (6.6-8.7) g/dL Albumin 2.3 L (4.0-5.0) g/dL Urine Protein (NEGATIVE) Urine Ketones (NEGATIVE) Urine Blood (NEGATIVE) Ur Leukocyte Esterase (NEGATIVE) Condition at Discharge: (2) Stable Discharge Medications - Discharge Medications Prescriptions: Cefdinir 300 mg PO BID 9 Days #18 capsule Home Medications: Ambulatory Orders Latanoprost [Xalatan] 1 drop OP QHS 03/16/15 [Last Taken 11/11/17] Multivitamin [Multiple Vitamins] 1 each PO DAILY 11/12/17 [Last Taken 11/12/17] Albuterol Sulfate [Proair Hfa] 1 - 2 puff IH .EVERY 4-6 HOURS PRN 05/16/18 [ Last Taken Unknown] Budesonide/Formoterol Fumarate [Symbicort 160-4.5 Mcg Inhaler] 10.2 gm IH BID PRN 05/16/18 [Last Taken Unknown] Calcium Carbonate [Calcium] 500 mg PO DAILY 05/16/18 [Last Taken Unknown] Lutein 3 mg PO DAILY 05/16/18 [Last Taken Unknown] Mv-Min/FA/Vit K/Lycop/Lut/Zeax [Ocuvite Eye Plus Multi Tablet] 1 each PO DAILY 05/16/18 [Last Taken Unknown] [place]-3 Fatty Acids/Fish Oil [Fish Oil 1,000 mg Capsule] 1 each PO DAILY [Last Taken Unknown] Teriparatide [Forteo] 2.4 ml SQ QHS 05/16/18 [Last Taken Unknown] Vitamin E 100 unit PO DAILY 05/16/18 [Last Taken Unknown] Acetaminophen [Tylenol 325Mg] 650 mg PO Q4H PRN tablet 05/17/18 [Last Taken Unknown] Cefdinir 300 mg PO BID 9 Days #18 capsule 05/17/18 [Last Taken Unknown] Discharge Plan - Discharge Instructions Activity at Discharge: Increase Activity as Tolerated Diet at Discharge: Advance to Usual Diet Additional Instructions: Take Cefdinir 300mg tablet twice a day for 9 days. Follow up with Primary Care Physician in 1-2 weeks Return to ER if symptoms return or pt worsens Quality Measures - Quality Measures Quality Measures: Advance Directives, Documentation of Current Medications in Medical Record, Elder Maltreatment Screen and Follow-Up Plan, Screening for High Blood Pressure and F/U Documented - Current Medications Quality Measure: Measure #130: Documentation of Current Medications Documentation of Current Medications: <Current Medications Documented/Reviewed> [[id number]] - Blood Pressure Screening Quality Measure: Screening for High Blood Pressure and Follow-Up Documented Does Patient Have Any of the Following: No Blood Pressure Classification: Pre-Hypertensive BP Reading Systolic Measurement: 135 Diastolic Measurement: 68 Screening for High Blood Pressure: < Pre-Hypertensive BP, F/U Documented > [ [id number]] Pre-Hypertensive Follow-up Interventions: Referral to alternative/primary care provider. - Advance Directives Quality Measure: Measure #47: Care Plan Advance Directives Established: No Advance Directives Information Provided To Patient: No Advance Directives on File: No Living Will: No Power of Field Captain: Yes Power of Field Captain Name: KELI SHETTY Advance Care Planning: <Care Plan/Decision Maker Documented; Discussed & Documented> [[id number]] - Elder Abuse Suspicion Index Screening: Elder Abuse Suspicion Index Screening Rely on people for bathing, dressing, shopping, banking, etc: No Prevented from getting food, clothes, medication, etc: No Made to feel shamed or threatened by someone: No Forced to sign papers or use money against will: No Feel afraid, touched in ways not wanted or hurt physically: No Poor eye contact, withdrawn, malnourished, cuts or bruises: No Screening Result: Negative result EASI Reference Information: Lucita BREEN, Elly C, Patti D, Alex M.Development and validation of a tool to assist physicians identification of elder abuse: The Elder Abuse Suspicion Index (EASI ). Journal of Elder Abuse and Neglect, 2008; 20 (3): 276-300. - Elder Maltreatment Screen Quality Measures: Elder Maltreatment Screen and Follow-Up Plan Elder Maltreatment Screen: <Negative, No Follow-Up Plan Required> [G8730]
== END 2018-05-17 14:30 | disposition home or self-care (01) ==
LOC: ER 10:10 → INTOOBSV 12:06 → MEDSURG 12:06
PROVIDERS: ADMIT Internal Medicine; ATTEND Internal Medicine
DX: R41.82 Altered mental status, unspecified (principal); N39.0 Urinary tract infection, site not specified; D72.829 Elevated white blood cell count, unspecified; F03.90 Unspecified dementia, unspecified severity, without behavioral disturbance, psychotic disturbance, mood disturbance, and anxiety; J44.9 Chronic obstructive pulmonary disease, unspecified; R06.00 Dyspnea, unspecified; N40.0 Benign prostatic hyperplasia without lower urinary tract symptoms; M19.049 Primary osteoarthritis, unspecified hand; Z87.891 Personal history of nicotine dependence
CPT/HCPCS: 85025 ×2; 80053 ×2; 36416; 81001; 82948; 71046; 93005; 93010; G0378 ×2; J3490; J0696; 96365; 96366; 99220; 99285; J7030

== ENCOUNTER 2018-12-08 12:41 | Emergency (ER) | payer MEDICARE, BC ==
[2018-12-08] MEDS ORDERED: IPRATROPIUM/ALBUTEROL (0.5MG/3MG) NEB INH ONE (12:58)
[2018-12-08] MEDS ORDERED: METHYLPREDNISOLONE PF 125MG/VIAL IVP ONE (12:58)
--- NOTE | 2018-12-08 13:05 | Emergency Department Record ---
History of Present Illness - General Chief Complaint: Cough Stated Complaint: COUGH HAS COPD Time Seen by Provider: 12/08/18 12:54 Source: Patient, Family Limitations: No limitations - History of Present Illness Initial Comments: 88 yo male presents with cough and congestion that started this morning. His cough has been productive and it hurts in his throat to cough. No fever. He has history of COPD. He is a former smoker. NO vomiting or diarrhea. He did not have any of these symptoms yesterday. MD Complaint: Cough, Sore throat -: Hour(s) Severity: Moderate Quality: Aching Consistency: Intermittent Improves With: Nothing Worsens With: Other (cough) Context: Other Associated Symptoms: Cough Treatments Prior to Arrival: None - Related Data Previous Rx's Medication Instructions Recorded Acetaminophen [Tylenol 325Mg] 650 mg PO Q4H PRN tablet 05/17/18 Azithromycin [Zithromax] 250 mg PO DAILY #4 tab 12/08/18 Prednisone [Prednisone 20Mg] 20 mg PO BID #10 tab 12/08/18 Allergies Allergy/AdvReac Type Severity Reaction Status Date / Time No Known Drug Allergies Allergy Verified 12/08/18 12:53 Review of Systems Constitutional: Reports: Malaise. Denies: Chills, Fever Eyes: Denies: Eye discharge, Eye pain, Photophobia, Vision change ENT: Reports: Congestion, Throat pain Respiratory: Reports: Cough. Denies: Dyspnea Cardiovascular: Denies: Chest pain, Palpitations, Syncope Endocrine: Denies: Fatigue Gastrointestinal: Denies: Abdominal pain, Diarrhea, Nausea, Vomiting Genitourinary: Denies: Dysuria, Frequency, Hematuria Musculoskeletal: Denies: Arthralgia, Back pain, Myalgia Skin: Denies: Bruising, Change in color, Rash Neurological: Reports: Other (Dementia but at baseline) Psychiatric: Denies: Anxiety Hematological/Lymphatic: Denies: Easy bleeding, Easy bruising Past Medical History - SOCIAL HISTORY Smoking Status: Former smoker - RESPIRATORY Hx Respiratory Disorders: Yes Hx COPD: Yes Hx Dyspnea: Yes (with exertion) - CARDIOVASCULAR Hx Cardio Disorders: No - NEURO Hx Neuro Disorders: Yes Hx Dementia: Yes Comment:: some loss of memory - GI Hx GI Disorders: No - Hx Genitourinary Disorders: Yes Hx Bladder Problem: Yes (onset 03/29) Hx Prostate Problems: Yes (enlarged prostate) Hx UTI: Yes - ENDOCRINE Hx Endocrine Disorders: No - MUSCULOSKELETAL Hx Musculoskeletal Disorders: Yes Hx Arthritis: Yes (hands) - PSYCH Hx Psych Problems: No - HEMATOLOGY/ONCOLOGY Hx Hematology/Oncology Disorders: No Family Medical History Hx Cancer: Mother Hx Heart Disease: Father Hx HTN: Father Physical Exam - General General Appearance: Alert, Oriented x3, No acute distress Limitations: No limitations - Head Head exam: Atraumatic, Normal inspection - Eye Eye exam: Normal appearance, Conjunctival injection - ENT ENT exam: Normal exam Ear exam: Normal external inspection Nasal Exam: Discharge Mouth exam: Normal external inspection Throat exam: Normal inspection. negative: Tonsillar erythema, Tonsillomegaly, Tonsillar exudate, R peritonsillar mass, L peritonsillar mass - Neck Neck exam: Normal inspection. negative: Tenderness - Respiratory Respiratory exam: Decreased breath sounds, Prolonged expiratory, Rhonchi, Wheezes, Other (Mild increase in work of breathing). negative: Normal lung sounds bilaterally, Accessory muscle use, Respiratory distress, Stridor - Cardiovascular Cardiovascular Exam: Regular rate, Normal rhythm, Normal heart sounds - GI/Abdominal GI/Abdominal exam: Soft. negative: Tenderness - Rectal Rectal exam: Deferred - exam: Deferred - Extremities Extremities exam: Normal inspection - Back Back exam: Denies: CVA tenderness (R), CVA tenderness (L) - Neurological Neurological exam: Alert, Oriented X3 - Psychiatric Psychiatric exam: Normal affect, Normal mood. negative: Agitated, Anxious - Skin Skin exam: Dry, Intact, Normal color, Warm Course - Reevaluation(s) Reevaluation #1: No acute changes on the vitals No hypoxia 12/08/18 13:25 12/08/18 14:14 The labs results were reviewed There are no acute significant abnormalities of the CBC There are no acute significant abnormalities of the CMP except the K is 3.2 The breathing has been much improved since his duoneb His work of breathing is very relaxed and calm We discussed the lab results 12/08/18 14:16 The CXR is consistent with hyperinflation No infiltrate to suggest pneumonia or other pathology 12/08/18 14:18 We discussed the results of the tests and questions were answered at the time of discharge. The patient is doing well and is comfortable with DC. DC vitals were reviewed. We discussed at length reasons to immediately return to the ED as well as close follow up. The patient will call the PCP for close follow up of this ED visit to review this visit and the tests performed Medical Decision Making - Lab Data Result diagrams: 12/08/18 13:20 12/08/18 13:20 Disposition Disposition: Discharge Clinical Impression: COPD with exacerbation Disposition: Home, Self-Care Condition: (1) Good Instructions: Acute Bronchitis (ED), COPD (Chronic Obstructive Pulmonary Disease) (ED) Additional Instructions: Call your doctor for the next available follow up appointment Return to the ER for a recheck if worse, any new concerns or questions Take the prescriptions provided as directed Review this ER visit and the tests performed with your family doctor Use your nebulizer every 4 hours if wheezing Prescriptions: Azithromycin [Zithromax] 250 mg PO DAILY #4 tab Prednisone [Prednisone 20Mg] 20 mg PO BID #10 tab Forms: Patient Portal Access Time of Disposition: 14:18 Quality - Quality Measures Quality Measures: N/A - Blood Pressure Screening Does Patient Have Any of the Following: No Blood Pressure Classification: Pre-Hypertensive BP Reading Systolic Measurement: 141 Diastolic Measurement: 87 Screening for High Blood Pressure: < Pre-Hypertensive BP, F/U Documented > [ G8950] Pre-Hypertensive Follow-up Interventions: Referral to alternative/primary care provider.
[2018-12-08 13:31] LABS: BASO % 0.6 % (0-6); EOS % 2.5 % (0-6); HEMATOCRIT 40.4 % (42.0-52.0); HEMOGLOBIN 12.8 gm/dl (14.0-18.0); LYMPH % 21.9 % (16-45); MEAN CELL VOLUME 93.5 fl (81-97); MEAN CORPUSCULAR HEMOGLOBIN 29.6 pg (27-33); MEAN CORPUSCULAR HGB CONC 31.7 g/dl (32-36); MEAN PLATELET VOLUME 10.3 fl (7.4-10.4); PLATELET COUNT 251 K/uL (130-400); RED BLOOD COUNT 4.32 M/uL (4.40-5.70); RED CELL DISTRIBUTION WIDTH 16.4 % (11.5-14.5); WHITE BLOOD COUNT W/O DIFF 8.6 K/uL (4.2-12.2)
[2018-12-08 13:43] LABS: BLOOD UREA NITROGEN 11 mg/dL (8-23); CREATININE 0.5 mg/dL (0.7-1.2); EST GLOMERULAR FILTRATION RATE > 60 mL/min; TOTAL PROTEIN 6.2 g/dL (6.6-8.7)
[2018-12-08 13:45] LABS: GLUCOSE,RANDOM 101 mg/dL (74-109)
[2018-12-08 13:48] LABS: ALB/GLOB RATIO 1.3 (1.1-1.8); ALBUMIN 3.5 g/dL (4.0-5.0); ALKALINE PHOSPHATASE 92 U/L (40-129); ALT/SGPT 12 U/L (<41); AST/SGOT 19 U/L (10.0-50.0)
[2018-12-08] MEDS ORDERED: POTASSIUM CHLORIDE 20 MEQ TABLET PO ONE (14:14)
[2018-12-08] MEDS ORDERED: AZITHROMYCIN 500 MG TABLET PO ONE (14:16)
--- NOTE | 2018-12-11 11:57 | RADIOLOGY REPORT ---
EXAM: CHEST, TWO VIEWS HISTORY: COUGH, COPD. TECHNIQUE: Frontal and lateral views of the chest were performed. Comparison: 05/16/18. FINDINGS: The heart size is normal. The lungs are hyperinflated. There is no infiltrate or pleural effusion. IMPRESSION: HYPERINFLATED LUNGS. NO INFILTRATE OR PLEURAL EFFUSION. JOB NUMBER: [id number] MTDD
== END 2018-12-08 15:14 | disposition home or self-care (01) ==
LOC: ER 12:41
DX: J44.1 Chronic obstructive pulmonary disease with (acute) exacerbation (principal); Z87.891 Personal history of nicotine dependence
CPT/HCPCS: 71046; 80053; 85025; 94640; 96374; 99284; J2930

== ENCOUNTER 2019-02-24 11:12 | Observation (INO) | payer MEDICARE, BC ==
[2019-02-24] MEDS ORDERED: SODIUM CHLORIDE 0.9% 500 ML IV ONE (11:41)
--- NOTE | 2019-02-24 11:50 | Emergency Department Record ---
History of Present Illness - General Chief complaint: Male Urogenital Problem Stated complaint: SWOLLEN/RED GENITAL AREA Time Seen by Provider: 02/24/19 11:28 Source: Family Mode of Arrival: Ambulatory Limitations: No limitations - History of Present Illness Initial comments: The patient is here due to his noticing that he has redness to his L testi yolanda area and slight swelling to the penis just below the glans for 2 days now. The patient has significant dementia and has not complained of pain or difficulty urinating. The patient is circumcised also. There has been no reported fever, chills, vomiting or diarrhea. MD Complaint: Testicle swelling Onset/Timin -: Days(s) Location: Left testicle Radiation: None Severity: Mild Severity scale (1-10): 3 Improves with: None Worsens with: None Reports: Swelling - Related Data Sexually active: No Previous Rx's Medication Instructions Recorded Acetaminophen [Tylenol 325Mg] 650 mg PO Q4H PRN tablet 05/17/18 Allergies Allergy/AdvReac Type Severity Reaction Status Date / Time No Known Drug Allergies Allergy Verified 12/08/18 12:53 Travel Screening - Travel/Exposure Within Last 30 Days Have you traveled within the last 30 days?: No - Travel Symptoms Symptom Screening: None Review of Systems Constitutional: Denies: Chills, Fever Eyes: Denies: Eye discharge ENT: Denies: Congestion Respiratory: Denies: Cough, Dyspnea Cardiovascular: Denies: Arrhythmia, Chest pain Endocrine: Denies: Fatigue Gastrointestinal: Denies: Nausea Genitourinary: Denies: Dysuria Musculoskeletal: Denies: Arthralgia Skin: Denies: Bruising Past Medical History - SOCIAL HISTORY Smoking Status: Former smoker - RESPIRATORY Hx Respiratory Disorders: Yes Hx COPD: Yes Hx Dyspnea: Yes (with exertion) - CARDIOVASCULAR Hx Cardio Disorders: No - NEURO Hx Neuro Disorders: Yes Hx Dementia: Yes Comment:: some loss of memory - GI Hx GI Disorders: No - Hx Genitourinary Disorders: Yes Hx Bladder Problem: Yes (onset 03/29) Hx Prostate Problems: Yes (enlarged prostate) Hx UTI: Yes - ENDOCRINE Hx Endocrine Disorders: No - MUSCULOSKELETAL Hx Musculoskeletal Disorders: Yes Hx Arthritis: Yes (hands) - PSYCH Hx Psych Problems: No - HEMATOLOGY/ONCOLOGY Hx Hematology/Oncology Disorders: No Family Medical History Any Significant Family History?: Yes Hx Cancer: Mother Hx Heart Disease: Father Hx HTN: Father Physical Exam - General General Appearance: Alert, Cooperative, No acute distress - Head Head exam: Atraumatic, Normocephalic - Eye Eye exam: Normal appearance - Neck Neck exam: Normal inspection, Full ROM. negative: Tenderness - Respiratory Respiratory exam: Normal lung sounds bilaterally. negative: Respiratory distress - Cardiovascular Cardiovascular Exam: Regular rate, Normal rhythm, Normal heart sounds - GI/Abdominal GI/Abdominal exam: Soft, Normal bowel sounds. negative: Tenderness - exam: Circumcision, Testicular tenderness (The L testicle appears mildly tender with erythema over the scrotum. There does not appear to be significant edema and no perineal involvement.). negative: Normal inspection (There is soft boggy edema with mild tenderness to the ventral distal shaft of the penis just below the glans. ), Scrotal swelling, Urethral discharge - Extremities Extremities exam: Normal inspection - Back Back exam: Reports: Normal inspection - Neurological Neurological exam: Alert. negative: Motor sensory deficit, Oriented X3 - Psychiatric Psychiatric exam: negative: Anxious Course Vital Signs 02/24/19 11:14 Temperature 98.0 F Pulse Rate 83 Respiratory 18 Rate Blood Pressure 149/76 Pulse Ox 94 L - Reevaluation(s) Reevaluation #1: The patient is doing well at this time with no changes. I did discuss the issues with his and did recommend admission due to the nature of the infection. I do not feel the patient has anything like Cira's gangrene but with the L sided scrotal involvement I do feel he needs IV Abx's. I then did discuss the case with Dr. Kaminski and he does accept the admission. 02/24/19 13:20 Medical Decision Making - Data Complexity MDM Data: Labs Ordered and/or Reviewed - Lab Data Result diagrams: 02/24/19 11:50 02/24/19 11:50 Disposition Disposition: Admit Clinical Impression: Cellulitis of scrotum Disposition: Still a Patient at [facility] Decision to Admit: Admit from ER Decision to Admit Date: 02/24/19 Decision to Admit Time: 13:21 Accepting Physician: Yamilex Time Discussed w/Accepting Physician: 13:21 Condition: (2) Stable Forms: Patient Portal Access Time of Disposition: 13:22 Quality - Quality Measures Quality Measures: N/A - Blood Pressure Screening View Details: Yes Does Patient Have Any of the Following: No Blood Pressure Classification: Hypertensive Reading Systolic Measurement: 149 Diastolic Measurement: 76 Screening for High Blood Pressure: < First Hypertensive BP, F/U Documented > [G8950] First Hypertensive Follow-up Interventions: Referral to alternative/primary care provider.
[2019-02-24 12:17] LABS: ABSOLUTE NEUTROPHIL COUNT 6.01; BASO % 0.4 % (0-6); EOS % 3.2 % (0-6); GRAN % 66.5 % (47-80); HEMATOCRIT 39.5 % (42.0-52.0); HEMOGLOBIN 12.7 gm/dl (14.0-18.0); LYMPH % 15.7 % (16-45); MEAN CELL VOLUME 92.3 fl (81-97); MEAN CORPUSCULAR HGB CONC 32.2 g/dl (32-36); MEAN PLATELET VOLUME 10.4 fl (7.4-10.4); MONO % 14.2 % (0-9); PLATELET COUNT 292 K/uL (130-400); RED BLOOD COUNT 4.28 M/uL (4.40-5.70); RED CELL DISTRIBUTION WIDTH 15.3 % (11.5-14.5)
[2019-02-24 12:22] LABS: MEAN CORPUSCULAR HEMOGLOBIN 29.6 pg (27-33)
[2019-02-24 12:30] LABS: BLOOD UREA NITROGEN 12 mg/dL (8-23)
[2019-02-24 12:31] LABS: CREATININE 0.4 mg/dL (0.7-1.2); EST GLOMERULAR FILTRATION RATE > 60 mL/min; TOTAL PROTEIN 5.7 g/dL (6.6-8.7)
[2019-02-24 12:33] LABS: GLUCOSE,RANDOM 110 mg/dL (74-109)
[2019-02-24 12:36] LABS: ALBUMIN 3.4 g/dL (4.0-5.0); ALKALINE PHOSPHATASE 87 U/L (40-129); ALT/SGPT 10 U/L (<41); AST/SGOT 18 U/L (10.0-50.0)
[2019-02-24 12:37] LABS: BILIRUBIN,DIRECT < 0.2 mg/dL (0-0.3)
[2019-02-24 12:41] LABS: URINE APPEARANCE CLEAR; URINE BILIRUBIN NEGATIVE (NEGATIVE); URINE BLOOD TRACE-I (NEGATIVE); URINE COLOR YELLOW; URINE GLUCOSE (UA) NEGATIVE (NEGATIVE); URINE KETONE TRACE (NEGATIVE); URINE LEUKOCYTE ESTERASE NEGATIVE (NEGATIVE); URINE NITRITE NEGATIVE (NEGATIVE); URINE PROTEIN NEGATIVE (NEGATIVE)
[2019-02-24 12:47] LABS: URINE BACTERIA NONE SEEN; URINE EPITHELIAL CELLS NONE SEEN (FEW); URINE WBC NONE SEEN (0-2/hpf)
[2019-02-24 12:57] LABS: C-REACTIVE PROTEIN 0.15 mg/dL (<0.5)
[2019-02-24] MEDS ORDERED: AMPICILLIN SODIUM/SULBACTAM NA 3 G in 0.9 % SODIUM CHLORIDE 100ML 100 ML IVPB ONE (13:16)
--- NOTE | 2019-02-24 13:36 | Emergency Department Record ---
History of Present Illness - General Chief complaint: Male Urogenital Problem Stated complaint: SWOLLEN/RED GENITAL AREA Time Seen by Provider: 02/24/19 11:28 Source: Family Mode of Arrival: Ambulatory Limitations: No limitations - History of Present Illness Onset/Timin -: Days(s) Location: Left testicle Radiation: None Severity: Mild Severity scale (1-10): 3 Improves with: None Worsens with: None Reports: Swelling - Related Data Sexually active: No Previous Rx's Medication Instructions Recorded Acetaminophen [Tylenol 325Mg] 650 mg PO Q4H PRN tablet 05/17/18 Allergies Allergy/AdvReac Type Severity Reaction Status Date / Time No Known Drug Allergies Allergy Verified 12/08/18 12:53 Travel Screening - Travel/Exposure Within Last 30 Days Have you traveled within the last 30 days?: No - Travel Symptoms Symptom Screening: None Review of Systems Constitutional: Denies: Chills, Fever Eyes: Denies: Eye discharge ENT: Denies: Congestion Respiratory: Denies: Cough, Dyspnea Cardiovascular: Denies: Arrhythmia, Chest pain Endocrine: Denies: Fatigue Gastrointestinal: Denies: Nausea Genitourinary: Denies: Dysuria Musculoskeletal: Denies: Arthralgia Skin: Denies: Bruising Past Medical History - SOCIAL HISTORY Smoking Status: Former smoker - RESPIRATORY Hx Respiratory Disorders: Yes Hx COPD: Yes Hx Dyspnea: Yes (with exertion) - CARDIOVASCULAR Hx Cardio Disorders: No - NEURO Hx Neuro Disorders: Yes Hx Dementia: Yes Comment:: some loss of memory - GI Hx GI Disorders: No - Hx Genitourinary Disorders: Yes Hx Bladder Problem: Yes (onset 03/29) Hx Prostate Problems: Yes (enlarged prostate) Hx UTI: Yes - ENDOCRINE Hx Endocrine Disorders: No - MUSCULOSKELETAL Hx Musculoskeletal Disorders: Yes Hx Arthritis: Yes (hands) - PSYCH Hx Psych Problems: No - HEMATOLOGY/ONCOLOGY Hx Hematology/Oncology Disorders: No Family Medical History Any Significant Family History?: Yes Hx Cancer: Mother Hx Heart Disease: Father Hx HTN: Father Physical Exam - General Limitations: No limitations Course Vital Signs 02/24/19 11:14 Temperature 98.0 F Pulse Rate 83 Respiratory 18 Rate Blood Pressure 149/76 Pulse Ox 94 L - Reevaluation(s) Reevaluation #1: I did have a conversation with the patient's regarding code status. The patient is to be a DNR per the . 02/24/19 13:35 Medical Decision Making - Lab Data Result diagrams: 02/24/19 11:50 02/24/19 11:50 Lab Results 02/24/19 02/24/19 02/24/19 Range/Units 11:50 11:50 11:50 WBC 9.0 (4.2-12.2) K/uL RBC 4.28 L (4.40-5.70) M/uL Hgb 12.7 L (14.0-18.0) gm/dl Hct 39.5 L (42.0-52.0) % MCV 92.3 (81-97) fl MCH 29.6 (27-33) pg MCHC 32.2 (32-36) g/dl RDW 15.3 H (11.5-14.5) % Plt Count 292 (130-400) K/uL MPV 10.4 (7.4-10.4) fl Gran % 66.5 (47-80) % Lymphocytes % 15.7 L (16-45) % Monocytes % 14.2 H (0-9) % Eosinophils % 3.2 (0-6) % Basophils % 0.4 (0-6) % Absolute Neutrophils 6.01 Sodium 142 (136-145) mmol/L Potassium 3.1 L (3.4-4.5) mmol/L Chloride 96 L (98-107) mmol/L Carbon Dioxide 35.0 H (22-29) mmol/L Anion Gap 11.0 (7-16) BUN 12 (8-23) mg/dL Creatinine 0.4 L (0.7-1.2) mg/dL Estimated GFR > 60 mL/min Random Glucose 110 H (74-109) mg/dL Calcium 9.7 (8.8-10.2) mg/dL Total Bilirubin 0.50 (0.2-1.0) mg/dL Direct Bilirubin < 0.2 (0-0.3) mg/dL AST 18 (10.0-50.0) U/L ALT 10 (<41) U/L Alkaline Phosphatase 87 (40-129) U/L C-Reactive Protein 0.15 (<0.5) mg/dL Total Protein 5.7 L (6.6-8.7) g/dL Albumin 3.4 L (4.0-5.0) g/dL Procalcitonin 0.083 ng/mL Urine Color Urine Appearance Urine pH (5.0-8.0) Ur Specific [place] (1.002-1.030) Urine Protein (NEGATIVE) Urine Glucose (UA) (NEGATIVE) Urine Ketones (NEGATIVE) Urine Blood (NEGATIVE) Urine Nitrite (NEGATIVE) Urine Bilirubin (NEGATIVE) Urine Urobilinogen (0.20 - 1.00) E.U./dL Ur Leukocyte Esterase (NEGATIVE) Urine RBC (NONE SEEN) Urine WBC (0-2/hpf) Ur Epithelial Cells (FEW) Urine Bacteria 02/24/19 Range/Units 12:30 WBC (4.2-12.2) K/uL RBC (4.40-5.70) M/uL Hgb (14.0-18.0) gm/dl Hct (42.0-52.0) % MCV (81-97) fl MCH (27-33) pg MCHC (32-36) g/dl RDW (11.5-14.5) % Plt Count (130-400) K/uL MPV (7.4-10.4) fl Gran % (47-80) % Lymphocytes % (16-45) % Monocytes % (0-9) % Eosinophils % (0-6) % Basophils % (0-6) % Absolute Neutrophils Sodium (136-145) mmol/L Potassium (3.4-4.5) mmol/L Chloride (98-107) mmol/L Carbon Dioxide (22-29) mmol/L Anion Gap (7-16) BUN (8-23) mg/dL Creatinine (0.7-1.2) mg/dL Estimated GFR mL/min Random Glucose (74-109) mg/dL Calcium (8.8-10.2) mg/dL Total Bilirubin (0.2-1.0) mg/dL Direct Bilirubin (0-0.3) mg/dL AST (10.0-50.0) U/L ALT (<41) U/L Alkaline Phosphatase (40-129) U/L C-Reactive Protein (<0.5) mg/dL Total Protein (6.6-8.7) g/dL Albumin (4.0-5.0) g/dL Procalcitonin ng/mL Urine Color Yellow Urine Appearance Clear Urine pH 6.0 (5.0-8.0) Ur Specific [place] 1.025 (1.002-1.030) Urine Protein Negative (NEGATIVE) Urine Glucose (UA) Negative (NEGATIVE) Urine Ketones Trace H (NEGATIVE) Urine Blood Trace-i (NEGATIVE) Urine Nitrite Negative (NEGATIVE) Urine Bilirubin Negative (NEGATIVE) Urine Urobilinogen 4.0 H (0.20 - 1.00) E.U./dL Ur Leukocyte Esterase Negative (NEGATIVE) Urine RBC 3 - 6 (NONE SEEN) Urine WBC None seen (0-2/hpf) Ur Epithelial Cells None seen (FEW) Urine Bacteria None seen Disposition Clinical Impression: Cellulitis of scrotum Disposition: Still a Patient at [facility] Condition: (2) Stable Forms: Patient Portal Access Quality - Quality Measures Quality Measures: N/A - Blood Pressure Screening View Details: Yes Does Patient Have Any of the Following: No Blood Pressure Classification: Hypertensive Reading Systolic Measurement: 149 Diastolic Measurement: 76 Screening for High Blood Pressure: < First Hypertensive BP, F/U Documented > [G8950] First Hypertensive Follow-up Interventions: Referral to alternative/primary care provider.
[2019-02-24] MEDS ORDERED: ALBUTEROL HFA 8 GM INHALER INH PRN (15:03)
[2019-02-24] MEDS ORDERED: ACETAMINOPHEN 325 MG TAB PO PRN (15:03)
[2019-02-24] MEDS ORDERED: AMPICILLIN SODIUM/SULBACTAM NA 1.5 G in 0.9 % SODIUM CHLORIDE 100ML 100 ML IVPB SCH (15:03)
[2019-02-24] MEDS: AMPICILLIN SODIUM/SULBACTAM NA 1.5 G in 0.9 % SODIUM CHLORIDE 100ML 100 ML IVPB SCH (21:55)
[2019-02-24] MEDS ORDERED: LATANOPROST 0.005% OPTH SCH (22:00)
[2019-02-24] MEDS ORDERED: TERIPARATIDE IM SCH (22:00)
[2019-02-24] MEDS ORDERED: OPTH OPTH SCH (22:00)
[2019-02-24] MEDS ORDERED: LIDOCAINE UROJECT 10 ML APPL MM ONE (22:10)
[2019-02-25] MEDS: AMPICILLIN SODIUM/SULBACTAM NA 1.5 G in 0.9 % SODIUM CHLORIDE 100ML 100 ML IVPB SCH ×2 (04:05→09:16)
--- NOTE | 2019-02-25 08:49 | History & Physical ---
History of Present Illness - Date of Service Date of Service for History & Physical: 02/25/19 - History of Present Illness Admitting Diagnosis: 1. Scrotal Cellulitis. History of Present Illness: Mr. Perales is a 89 y/o male with a 2-3 days history of scrotal, redness and rash. Per ED report the patient's reports that she noticed a rash developing and that the patient's hygiene is not the best. She says that has not complained of any irritation or urinary problems. On arrival to the ED the patient's labs were unremarkable with the exception of his low potassium. Last evening the patient was noted to have low urine output and bladder scan showed retention of 900cc of urine. A straight cath was ordered for decompression and bladder scan every six hours. On examination this morning the patient his happily demented and has no new complaints. He is able to ambulate with assistance to the restroom and is able to urinate on his own. PCP: Travel Screening - Travel/Exposure Within Last 30 Days Have you traveled within the last 30 days?: No - Travel/Exposure Within Last Year Have you traveled outside the [place] in the last year?: No - Additonal Travel Details Have you been exposed to anyone with a communicable illness?: No - Travel Symptoms Symptom Screening: None Review of Systems Constitutional: Denies: Chills, Fever Eyes: Denies: Eye discharge ENT: Denies: Congestion Respiratory: Denies: Cough, Dyspnea Cardiovascular: Denies: Arrhythmia, Chest pain Endocrine: Denies: Fatigue Gastrointestinal: Denies: Nausea Genitourinary: Denies: Dysuria Musculoskeletal: Denies: Arthralgia Skin: Denies: Bruising Past Medical History - SOCIAL HISTORY Smoking Status: Former smoker Alcohol Use: None Drug Use: None - RESPIRATORY Hx Respiratory Disorders: Yes Hx COPD: Yes Hx Dyspnea: Yes (with exertion) - CARDIOVASCULAR Hx Cardio Disorders: No - NEURO Hx Neuro Disorders: Yes Hx Dementia: Yes Comment:: some loss of memory - GI Hx GI Disorders: No - Hx Genitourinary Disorders: Yes Hx Bladder Problem: Yes (onset 03/29) Hx Prostate Problems: Yes (enlarged prostate) Hx UTI: Yes - ENDOCRINE Hx Endocrine Disorders: No - MUSCULOSKELETAL Hx Musculoskeletal Disorders: Yes Hx Arthritis: Yes (hands) - PSYCH Hx Psych Problems: No - HEMATOLOGY/ONCOLOGY Hx Hematology/Oncology Disorders: No Family Medical History Any Significant Family History?: Yes Hx Cancer: Mother Hx Heart Disease: Father Hx HTN: Father H&P Meds/Allergies - Allergies Allergies: Allergies Allergy/AdvReac Type Severity Reaction Status Date / Time No Known Drug Allergies Allergy Verified 12/08/18 12:53 - Home Medications Previous Rx's Medication Instructions Recorded Acetaminophen [Tylenol 325Mg] 650 mg PO Q4H PRN tablet 05/17/18 - Active Medications Active Medications: Current Medications Acetaminophen (Tylenol 325mg) 650 mg PO Q6H PRN PRN Reason: PAIN - MILD(1-4)/FEVER Ampicillin Sodium/Sulbactam (Sodium 1.5 g/ Sodium Chloride) 100 mls @ 200 mls/hr IVPB Q6H [facility] Stop: 03/01/19 22:01 Last Infusion: 02/25/19 04:37 Dose: Infused Documented by: Non-Formulary Medication (Teriparatide [Forteo]) 2.4 ml IM QHS [facility] Last Admin: 02/24/19 21:57 Dose: 2.4 ml Documented by: Pom: Latanoprost 0. 005% Opth Solution 2 .5ml Bottle 1 each OPTH QHS [facility] Last Admin: 02/24/19 21:57 Dose: 1 each Documented by: Physical Exam - Vital Signs Vital Signs: Vital Signs - Last 24 Hrs Temp Pulse Pulse Resp BP BP Pulse Ox 02/25/19 05:00 98.7 F 64 18 142/67 95 02/25/19 00:22 97.8 F 76 18 118/81 94 L 02/24/19 21:03 98.6 F 67 18 156/74 93 L 02/24/19 21:00 18 02/24/19 17:52 97.6 F 67 17 148/68 93 L 02/24/19 14:00 98.1 F 70 17 164/77 98 02/24/19 11:14 98.0 F 83 18 149/76 94 L - General General Appearance: Alert, Cooperative, No acute distress Limitations: No limitations - Head Head exam: Atraumatic, Normocephalic - Eye Eye exam: Normal appearance - Neck Neck exam: Normal inspection, Full ROM. negative: Tenderness - Respiratory Respiratory exam: Normal lung sounds bilaterally. negative: Respiratory dis tress - Cardiovascular Cardiovascular Exam: Regular rate, Normal rhythm, Normal heart sounds - GI/Abdominal GI/Abdominal exam: Soft, Normal bowel sounds. negative: Tenderness - exam: Circumcision, Testicular tenderness (The L testicle appears mildly tender with erythema over the scrotum. There does not appear to be significant edema and no perineal involvement.). negative: Normal inspection (There is soft boggy edema with mild tenderness to the ventral distal shaft of the penis just below the glans. ), Scrotal swelling, Urethral discharge - Extremities Extremities exam: Normal inspection - Back Back exam: Reports: Normal inspection - Neurological Neurological exam: Alert. negative: Motor sensory deficit, Oriented X3 - Psychiatric Psychiatric exam: negative: Anxious Results - Labs Result Diagrams: 02/24/19 11:50 02/24/19 11:50 Labs Last 24 Hours: Laboratory Results - last 24 hr 02/24/19 02/24/19 02/24/19 11:50 11:50 11:50 WBC 9.0 RBC 4.28 L Hgb 12.7 L Hct 39.5 L MCV 92.3 MCH 29.6 MCHC 32.2 RDW 15.3 H Plt Count 292 MPV 10.4 Gran % 66.5 Lymphocytes % 15.7 L Monocytes % 14.2 H Eosinophils % 3.2 Basophils % 0.4 Absolute Neutrophils 6.01 Sodium 142 Potassium 3.1 L Chloride 96 L Carbon Dioxide 35.0 H Anion Gap 11.0 BUN 12 Creatinine 0.4 L Estimated GFR > 60 Random Glucose 110 H Calcium 9.7 Total Bilirubin 0.50 Direct Bilirubin < 0.2 AST 18 ALT 10 Alkaline Phosphatase 87 C-Reactive Protein 0.15 Total Protein 5.7 L Albumin 3.4 L Procalcitonin 0.083 Urine Color Urine Appearance Urine pH Ur Specific [place] Urine Protein Urine Glucose (UA) Urine Ketones Urine Blood Urine Nitrite Urine Bilirubin Urine Urobilinogen Ur Leukocyte Esterase Urine RBC Urine WBC Ur Epithelial Cells Urine Bacteria 02/24/19 12:30 WBC RBC Hgb Hct MCV MCH MCHC RDW Plt Count MPV Gran % Lymphocytes % Monocytes % Eosinophils % Basophils % Absolute Neutrophils Sodium Potassium Chloride Carbon Dioxide Anion Gap BUN Creatinine Estimated GFR Random Glucose Calcium Total Bilirubin Direct Bilirubin AST ALT Alkaline Phosphatase C-Reactive Protein Total Protein Albumin Procalcitonin Urine Color Yellow Urine Appearance Clear Urine pH 6.0 Ur Specific [place] 1.025 Urine Protein Negative Urine Glucose (UA) Negative Urine Ketones Trace H Urine Blood Trace-i Urine Nitrite Negative Urine Bilirubin Negative Urine Urobilinogen 4.0 H Ur Leukocyte Esterase Negative Urine RBC 3 - 6 Urine WBC None seen Ur Epithelial Cells None seen Urine Bacteria None seen VTE H&P Assessment - Risk for VTE Risk for VTE: Yes Risk Level: Moderate Risk Assessment Date: 02/25/19 Risk Assessment Time: 08:45 VTE Orders Placed or Will Be Placed: Yes Plan - Detailed Diagnosis and Plan (1) Cellulitis of scrotum Current Visit: Yes Status: Acute Base Code: N49.2 - INFLAMMATORY DISORDERS OF SCROTUM Comment: 02/25/19: - Area of erythema extending from - No white count, UA negative. - Unasyn IV 3gm Q6H, and change to Keflex 500mg BID PO. - Keep area clean, dry and free of debris. (2) Urinary retention Current Visit: Yes Status: Acute Base Code: R33.9 - RETENTION OF URINE, UNSPECIFIED Comment: 02/25/19: Resolved - Retention of urine yesterdya measured at >900 cc. - Bladder scan Q6H and straight cath for volumes >300. - Pt able to urinate on his own this morning. (3) DVT prophylaxis Current Visit: No Status: Acute Base Code: [id number] - Comment: 02/25/18: - Ambulation and SCDs while in bed. (4) DNR (do not resuscitate) Current Visit: Yes Status: Acute Base Code: Z66 - DO NOT RESUSCITATE Comment: 02/25/19: - DNR status put in by ED. I do not see any documentation with advanced directive and the patient is demented. I will discuss with is . - Disposition I've attempted to reach the patient's and but I've not been successful in doing so.
[2019-02-25] MEDS ORDERED: POTASSIUM CHLORIDE 20 MEQ TABLET PO ONE (09:53)
[2019-02-25] MEDS ORDERED: CEPHALEXIN 500 MG CAPSULE PO SCH (10:00)
[2019-02-25] MEDS ORDERED: ZINC OXIDE 28.35 GM TUBE TOP ONE (10:40)
[2019-02-25] MEDS ORDERED: ZINC OXIDE 28.35 GM TUBE TOP PRN (10:44)
== END 2019-02-25 14:50 | disposition home or self-care (01) ==
LOC: ER 11:12 → MEDSURG 13:49 → UNDOADMOB 13:49 → MEDSURG 02-25 00:19
PROVIDERS: ADMIT Internal Medicine; ATTEND Internal Medicine
DX: N49.2 Inflammatory disorders of scrotum (principal); F03.90 Unspecified dementia, unspecified severity, without behavioral disturbance, psychotic disturbance, mood disturbance, and anxiety; J44.9 Chronic obstructive pulmonary disease, unspecified; N40.0 Benign prostatic hyperplasia without lower urinary tract symptoms; M19.042 Primary osteoarthritis, left hand; M19.041 Primary osteoarthritis, right hand; Z87.891 Personal history of nicotine dependence; Z66 Do not resuscitate
CPT/HCPCS: 85025; 80076; 86140; 80048; 81001; 84145; G0378; J0295; 99236; 99285

== ENCOUNTER 2019-04-14 15:16 | Emergency (ER) | payer MEDICARE, BC ==
[2019-04-14] MEDS ORDERED: IPRATROPIUM/ALBUTEROL (0.5MG/3MG) NEB INH ONE (16:39)
--- NOTE | 2019-04-14 18:12 | Emergency Department Record ---
History of Present Illness - General Chief Complaint: Difficulty Breathing Stated Complaint: O 2 85/ DR REFERRED HIM TO US Time Seen by Provider: 04/14/19 16:34 Source: Patient, Family Mode of Arrival: Wheelchair Limitations: No limitations - History of Present Illness Initial Comments: pt came in because he went to an urgent care because he was sob and his sats were 85 and they couldnt get it any higher. he has no complaints. his sats are 93 here Complaint: Shortness of breath Onset/Timin -: Days(s) Improves With: Nothing Worsens With: Nothing Known History Of: COPD Associated Symptoms: Cough - Related Data Home Medications Medication Instructions Recorded Confirmed Last Taken Azithromycin 250 mg PO DAILY 04/14/19 04/14/19 04/14/19 Previous Rx's Medication Instructions Recorded Acetaminophen [Tylenol 325Mg] 650 mg PO Q4H PRN tablet 05/17/18 Allergies Allergy/AdvReac Type Severity Reaction Status Date / Time No Known Drug Allergies Allergy Verified 12/08/18 12:53 Travel Screening - Travel/Exposure Within Last 30 Days Have you traveled within the last 30 days?: No - Travel/Exposure Within Last Year Have you traveled outside the [place] in the last year?: No - Additonal Travel Details Have you been exposed to anyone with a communicable illness?: No - Travel Symptoms Symptom Screening: None Review of Systems Reviewed: No additional complaints except as noted below Constitutional: Reports: As per HPI. Denies: Chills, Fever, Malaise, Night sweats, Weakness, Weight change Eyes: Reports: As per HPI. Denies: Eye discharge, Eye pain, Photophobia, Vision change ENT: Reports: As per HPI, Congestion. Denies: Dental pain, Ear pain, Epistaxis, Hearing loss, Throat pain Respiratory: Reports: As per HPI, Cough, Dyspnea. Denies: Hemoptysis, Stridor, Wheezes Cardiovascular: Reports: As per HPI. Denies: Arrhythmia, Chest pain, Dyspnea on exertion, Edema, Murmurs, Orthopnea, Palpitations, Paroxysmal nocturnal dyspnea, Rheumatic Fever, Syncope Endocrine: Reports: As per HPI. Denies: Fatigue, Heat or cold intolerance, Polydipsia, Polyuria Gastrointestinal: Reports: As per HPI. Denies: Abdominal pain, Constipation, Diarrhea, Hematemesis, Hematochezia, Melena, Nausea, Vomiting Genitourinary: Reports: As per HPI. Denies: Dysuria, Frequency, Hematuria, Incontinence, Retention, Testicular pain, Testicular mass, Urgency Musculoskeletal: Reports: As per HPI. Denies: Arthralgia, Back pain, Gout, Joint swelling, Myalgia, Neck pain Skin: Reports: As per HPI. Denies: Bruising, Change in color, Change in hair/nails, Lesions, Pruritus, Rash Neurological: Reports: As per HPI. Denies: Abnormal gait, Confusion, Headache, Numbness, Paresthesias, Seizure, Tingling, Tremors, Vertigo, Weakness Psychiatric: Reports: As per HPI. Denies: Anxiety, Auditory hallucinations, Depression, Homicidal thoughts, Suicidal thoughts, Visual hallucinations Hematological/Lymphatic: Reports: As per HPI. Denies: Anemia, Blood Clots, Easy bleeding, Easy bruising, Swollen glands Past Medical History - SOCIAL HISTORY Smoking Status: Former smoker Alcohol Use: None Drug Use: None - RESPIRATORY Hx Respiratory Disorders: Yes Hx COPD: Yes Hx Dyspnea: Yes (with exertion) - CARDIOVASCULAR Hx Cardio Disorders: No - NEURO Hx Neuro Disorders: Yes Hx Dementia: Yes Comment:: some loss of memory - GI Hx GI Disorders: No - Hx Genitourinary Disorders: Yes Hx Bladder Problem: Yes (onset 03/29) Hx Prostate Problems: Yes (enlarged prostate) Hx UTI: Yes - ENDOCRINE Hx Endocrine Disorders: No - MUSCULOSKELETAL Hx Musculoskeletal Disorders: Yes Hx Arthritis: Yes (hands) - PSYCH Hx Psych Problems: No - HEMATOLOGY/ONCOLOGY Hx Hematology/Oncology Disorders: No Family Medical History Any Significant Family History?: No Hx Cancer: Mother Hx Heart Disease: Father Hx HTN: Father Physical Exam - General General Appearance: Alert, Oriented x3, Cooperative, Mild distress - Head Head exam: Normal inspection - Eye Eye exam: Normal appearance, PERRL, EOMI Pupils: Normal accommodation - ENT ENT exam: Normal exam, Mucous membranes moist, Normal external ear exam, Normal orophraynx Ear exam: Normal external inspection. negative: External canal tenderness Nasal Exam: Normal inspection. negative: Discharge, Sinus tenderness Mouth exam: Normal external inspection, Tongue normal Teeth exam: Normal inspection. negative: Dental caries Throat exam: Normal inspection. negative: Tonsillar erythema, Tonsillar exudate - Neck Neck exam: Normal inspection, Full ROM. negative: Tenderness - Respiratory Respiratory exam: Normal lung sounds bilaterally, Wheezes. negative: Respiratory distress - Cardiovascular Cardiovascular Exam: Regular rate, Normal rhythm, Normal heart sounds - GI/Abdominal GI/Abdominal exam: Soft, Normal bowel sounds. negative: Tenderness - Rectal Rectal exam: Deferred - exam: Deferred - Extremities Extremities exam: Normal inspection, Full ROM, Normal capillary refill. negative: Tenderness - Back Back exam: Reports: Normal inspection, Full ROM. Denies: Muscle spasm, Rash noted, Tenderness - Neurological Neurological exam: Alert, CN II-XII intact, Normal gait, Oriented X3 - Psychiatric Psychiatric exam: Normal affect, Normal mood - Skin Skin exam: Dry, Intact, Normal color, Warm Course Vital Signs 04/14/19 04/14/19 04/14/19 15:58 17:12 18:04 Temperature 98.1 F Pulse Rate 82 75 Pulse Rate [ 79 Pulse Ox Probe] Respiratory 18 18 16 Rate Blood Pressure 120/76 Blood Pressure 126/76 [Right Arm] Pulse Ox 92 L 95 92 L - Reevaluation(s) Reevaluation #1: 04/14/19 18:11 pt doing well. cxr is negative Disposition Disposition: Discharge Clinical Impression: SOB (shortness of breath) Disposition: Home, Self-Care Instructions: Dyspnea (ED) Additional Instructions: follow up with family doctor. return sooner if worse. use nebulizer as instructed Quality - Quality Measures Quality Measures: N/A - Blood Pressure Screening Does Patient Have Any of the Following: No Blood Pressure Classification: Pre-Hypertensive BP Reading Systolic Measurement: 120 Diastolic Measurement: 76 Screening for High Blood Pressure: < Pre-Hypertensive BP, F/U Documented > [[id number]] Pre-Hypertensive Follow-up Interventions: Follow-up with rescreen every year.
--- NOTE | 2019-04-17 06:02 | RADIOLOGY REPORT ---
EXAM: CHEST, TWO VIEWS HISTORY: COUGH. LOW OXYGEN SATURATION. TECHNIQUE: AP and lateral upright views of the chest were obtained. Comparison: 12/08/18. FINDINGS: The heart is normal in size. There is calcification and tortuosity of the aorta. The mediastinum and pulmonary vasculature are otherwise normal. The lungs are hyperinflated consistent with COPD. There are no acute infiltrates or effusions. There is no pneumothorax. The bones are diffusely osteopenic. Chronic compression deformities are present within the thoracic spine. IMPRESSION: 1. STABLE COPD. 2. NO ACUTE CHEST PATHOLOGY. JOB NUMBER: [id number] [facility]
== END 2019-04-14 18:37 | disposition home or self-care (01) ==
LOC: ER 15:16
DX: R06.02 Shortness of breath (principal); R05 Cough; J44.9 Chronic obstructive pulmonary disease, unspecified; Z87.891 Personal history of nicotine dependence
CPT/HCPCS: 71046; 94640; 99284

== ENCOUNTER 2019-04-15 18:01 | Inpatient (IN) | payer MEDICARE, BC ==
[2019-04-15] MEDS ORDERED: IPRATROPIUM/ALBUTEROL (0.5MG/3MG) NEB INH ONE (18:08)
--- NOTE | 2019-04-15 18:14 | Emergency Department Record ---
History of Present Illness - General Chief Complaint: Shortness of breath Stated Complaint: PT WOULDN'T GET OUT OF BED OR TAKE BREATHING TREAT Time Seen by Provider: 04/15/19 18:02 Source: Family, EMS Mode of Arrival: EMS Limitations: Other (Dementia) - History of Present Illness Initial Comments: 89 yo male with a past medical history significant for dementia presents to ED for evaluation of difficulty in breathing symptoms. Patient's SO reports that he was seen yesterday for decreased oxygen saturation at his PCP's office, was sent ED for evaluation. Patient was found to have an oxygen saturation of 94- 95% on his baseline 2L NC here in the ED, CXR was unremarkable for an acute infiltrate. Patient was discharged home on an antibiotic which his SO reports he has been taking. SO denies fevers, chills, or worsening of his symptoms following discharge home. MD Complaint: Shortness of breath Onset/Timin -: Days(s) Severity: Moderate Consistency: Constant Improves With: Bronchodilators Worsens With: Nothing Known History Of: COPD - Related Data Home Oxygen Therapy: Yes Previous Rx's Medication Instructions Recorded Acetaminophen [Tylenol 325Mg] 650 mg PO Q4H PRN tablet 05/17/18 Allergies Allergy/AdvReac Type Severity Reaction Status Date / Time No Known Drug Allergies Allergy Verified 12/08/18 12:53 Review of Systems ROS unobtainable: Due to mental status Constitutional: Denies: Chills, Fever Respiratory: Reports: Cough, Dyspnea, Wheezes Past Medical History - SOCIAL HISTORY Smoking Status: Former smoker Drug Use: None - RESPIRATORY Hx Respiratory Disorders: Yes Hx COPD: Yes Hx Dyspnea: Yes (with exertion) - CARDIOVASCULAR Hx Cardio Disorders: No - NEURO Hx Neuro Disorders: Yes Hx Dementia: Yes Comment:: some loss of memory - GI Hx GI Disorders: No - Hx Genitourinary Disorders: Yes Hx Bladder Problem: Yes (onset 03/29) Hx Prostate Problems: Yes (enlarged prostate) Hx UTI: Yes - ENDOCRINE Hx Endocrine Disorders: No - MUSCULOSKELETAL Hx Musculoskeletal Disorders: Yes Hx Arthritis: Yes (hands) - PSYCH Hx Psych Problems: No - HEMATOLOGY/ONCOLOGY Hx Hematology/Oncology Disorders: No Family Medical History Hx Cancer: Mother Hx Heart Disease: Father Hx HTN: Father Physical Exam - General General Appearance: Alert, Cooperative, Mild distress, Other (Cachetic appearing on examination) Limitations: No limitations - Head Head exam: Atraumatic, Normocephalic, Normal inspection Head exam detail: negative: Abrasion, Contusion, Thomason's sign, General tenderness, Hematoma, Laceration - Eye Eye exam: Scleral icterus (Purulent discharge from the right medial canthus). negative: Periorbital swelling, Periorbital tenderness - ENT Ear exam: negative: Auricular hematoma, Auricular trauma Nasal Exam: negative: Active bleeding, Discharge, Dried blood, Foreign body Mouth exam: negative: Drooling, Laceration, Muffled voice, Tongue elevation - Neck Neck exam: Normal inspection. negative: Meningismus, Tenderness - Respiratory Respiratory exam: Decreased breath sounds, Prolonged expiratory, Wheezes - Cardiovascular Cardiovascular Exam: Regular rate, Normal rhythm, Normal heart sounds - GI/Abdominal GI/Abdominal exam: Soft. negative: Rebound, Rigid, Tenderness - Rectal Rectal exam: Deferred - exam: Deferred - Extremities Extremities exam: Normal inspection. negative: Pedal edema, Tenderness - Back Back exam: Denies: CVA tenderness (R), CVA tenderness (L) - Neurological Neurological exam: Alert. negative: Motor sensory deficit - Psychiatric Psychiatric exam: Normal affect, Normal mood - Skin Skin exam: Normal color. negative: Abrasion Type of lesion: negative: abrasion Course - Reevaluation(s) Reevaluation #1: 04/15/19 18:14 Records from previous ED visit 04/14/19 were reviewed: Laboratory studies were grossly unremarkable for an acute process except for the following: WBC 9.0, 83% Neutrophils Potassium 3.1 CXR: NO acute infiltrate identified. Reevaluation #2: 04/15/19 18:22 I discussed at length with the patient's significant other what she would prefer interms of disposition, SO reports that she is unable to care for the patient at home at this time as he is very uncooperative. SO would prefer to admit the patient and have social work evaluate the patient for placement. Reevaluation #3: 04/15/19 18:26 Case was discussed with Dr. Kaminski, will admit for COPD exacerbation, Hypokalemia, and placement in long-term facility for ongoing care. Disposition Disposition: Admit Clinical Impression: COPD exacerbation, Hypokalemia Dementia Qualifiers: Dementia type: unspecified type Dementia behavioral disturbance: with behavioral disturbance Qualified Code(s): F03.91 - Unspecified dementia with behavioral disturbance Disposition: Still a Patient at [facility] Decision to Admit: Admit from ER Decision to Admit Date: 04/15/19 Decision to Admit Time: 18:27 Condition: (2) Stable Forms: Patient Portal Access Time of Disposition: 18:27 Quality - Quality Measures Quality Measures: N/A - Blood Pressure Screening Does Patient Have Any of the Following: Active Dx of HTN Blood Pressure Classification: Pre-Hypertensive BP Reading Systolic Measurement: 113 Diastolic Measurement: 84 Screening for High Blood Pressure: Patient Exclusion, Hx of HTN [G9744]
[2019-04-15] MEDS ORDERED: METHYLPREDNISOLONE PF 125MG/VIAL IVP ONE (18:21)
[2019-04-15] MEDS ORDERED: POTASSIUM BICARB./CIT AC 25 MEQ EFF.TAB PO STA (18:22)
[2019-04-15] MEDS ORDERED: ACETAMINOPHEN 325 MG TAB PO PRN (18:55)
[2019-04-15] MEDS ORDERED: ALBUTEROL SULFATE (0.083%) 2.5 MG/3 ML NEB INH PRN (18:55)
[2019-04-15] MEDS: IPRATROPIUM/ALBUTEROL (0.5MG/3MG) NEB INH SCH (21:25)
[2019-04-15] MEDS: TERIPARATIDE SC SCH (21:29)
[2019-04-15] MEDS: LATANOPROST 0.005% OPTH SOLUTION 2.5ML BOTTLE OPTH SCH (21:29)
[2019-04-15] MEDS: 0.9 % SODIUM CHLORIDE 1000ML 1,000 ML IV PRN (21:30)
[2019-04-16] MEDS: IPRATROPIUM/ALBUTEROL (0.5MG/3MG) NEB INH SCH ×6 (03:14→21:30)
[2019-04-16] MEDS: ERYTHROMYCIN OP RIGHT EYE SCH ×5 (06:03→23:43)
[2019-04-16] MEDS: 0.9 % SODIUM CHLORIDE 1000ML 1,000 ML IV PRN ×2 (06:04→15:55)
[2019-04-16 06:39] LABS: BLOOD UREA NITROGEN 24 mg/dL (8-23); CREATININE 0.5 mg/dL (0.7-1.2); EST GLOMERULAR FILTRATION RATE > 60 mL/min; GLUCOSE,RANDOM 116 mg/dL (74-109)
[2019-04-16] MEDS: AZITHROMYCIN 250 MG TABLET PO SCH (09:58)
[2019-04-16] MEDS: MULTIVITAMINS/MINERALS TABLET PO SCH (09:58)
[2019-04-16] MEDS ORDERED: METHYLPREDNISOLONE PF 125MG/VIAL IVP SCH (10:00)
[2019-04-16] MEDS ORDERED: LUTEIN PO SCH (10:00)
[2019-04-16] MEDS ORDERED: [UNRECOGNIZED DRUG - MIXTURE] PO SCH (10:00)
[2019-04-16] MEDS: BREO (FLUTICASONE/VILANTEROL) 200MCG/25MCG INHALER INH SCH (10:06)
--- NOTE | 2019-04-16 12:01 | History & Physical ---
History of Present Illness - Date of Service Date of Service for History & Physical: 04/16/19 - History of Present Illness Admitting Diagnosis: COPD exacerbation. Dementia History of Present Illness: 04/15/19 Pt presented to ER via EMS for refusal to take his breathing treatments at home with (via EMS). Pt was seen 04/14/19, had stable CXR for COPD, no labs. Pt reported that pt was refusing to get out of bed or take his breathing treatments r/t dementia. No worsening of symptoms per , pt was taking his abx, no fever, chills noted. Pt was seen in office 04/13/19 for COPD concerns, started on ABX and instructed to follow up 04/14/19 in the urgent care hours for his PCP, sats were reported by to be low and pt was transferred to [facility] ER for further evaluation of COPD exacerbation. Na 144, K 3.8, Cl 99, CO2 28, Anion gap 17, BUN 24, Cr 0.5, GFR. 60, Glucose 116, Ca 8.3 Pt given solumedrol 125mg IVP, breathing tx, supplemental O2, K supplement, NS IVF @100/hr 04/16/19 Pt is disoriented, only oriented to self and birthday. Does not maintain orientation when updated. not present this AM until lunch. Nursing reports pt is calm through the evening and this AM, assisted with breakfast, bed alarm present. Pt being assisted with toileting, urinating in brief last night but this AM asked to urinate and had BM on commode. Pt has PULLIAM, audible wheezing but is not aggressive. Pt skin intact but duoderm applied to sacrum r/t thin skin and cintia prominence but no breakdown noted. present at lunch, pt is noticeably more agitated with her at bedside, assisting with lunch. Concerns for caregiver burn out as is short with instructions for pt to stop interrupting and to eat his lunch but no current concerns with caregiver abuse. has toured [facility] in [place] for terminal carman care placement, cost is $5,500 monthly and they do not have terminal carman care insurance but have supplemental. declines assisted living placement for her, wishing to remain in the home at this time. Continue COPD exacerbation tx, repeating K this afternoon and AM labs. Repeat CXR this visit. UA ordered and pending as pt reports recent memory decline in the past 2 weeks. Denies any aggression in the home but that pt is refusing to get out of bed, sleeping all the time, and refusing breathing treatments but takes his pills. stars coordinator to speak with tomorrow for terminal carman planning. PCP [facility] Travel Screening - Travel/Exposure Within Last 30 Days Have you traveled within the last 30 days?: No - Travel/Exposure Within Last Year Have you traveled outside the [place] in the last year?: No - Additonal Travel Details Have you been exposed to anyone with a communicable illness?: No - Travel Symptoms Symptom Screening: None Review of Systems Constitutional: Denies: Chills, Fever Eyes: Reports: Eye discharge (abx from PCP) Respiratory: Reports: Cough, Dyspnea, Wheezes Cardiovascular: Reports: Dyspnea on exertion. Denies: Chest pain Endocrine: Reports: Fatigue Gastrointestinal: Denies: Abdominal pain, Constipation Past Medical History - SOCIAL HISTORY Smoking Status: Former smoker Alcohol Use: None Drug Use: None - RESPIRATORY Hx Respiratory Disorders: Yes Hx COPD: Yes Hx Dyspnea: Yes (with exertion) - CARDIOVASCULAR Hx Cardio Disorders: No - NEURO Hx Neuro Disorders: Yes Hx Dementia: Yes Comment:: some loss of memory - GI Hx GI Disorders: No - Hx Genitourinary Disorders: Yes Hx Bladder Problem: Yes (onset 03/29) Hx Prostate Problems: Yes (enlarged prostate) Hx UTI: Yes - ENDOCRINE Hx Endocrine Disorders: No - MUSCULOSKELETAL Hx Musculoskeletal Disorders: Yes Hx Arthritis: Yes (hands) - PSYCH Hx Psych Problems: No - HEMATOLOGY/ONCOLOGY Hx Hematology/Oncology Disorders: No Family Medical History Any Significant Family History?: Yes Hx Cancer: Mother Hx Heart Disease: Father Hx HTN: Father H&P Meds/Allergies - Allergies Allergies: Allergies Allergy/AdvReac Type Severity Reaction Status Date / Time No Known Drug Allergies Allergy Verified 12/08/18 12:53 - Home Medications Previous Rx's Medication Instructions Recorded Acetaminophen [Tylenol 325Mg] 650 mg PO Q4H PRN tablet 05/17/18 - Active Medications Active Medications: Current Medications Acetaminophen (Tylenol 325mg) 650 mg PO Q4H PRN PRN Reason: PAIN - MILD(1-4)/FEVER Albuterol Sulfate (Albuterol Sulfate) 2.5 mg INH RESP.Q2H PRN PRN Reason: DIFFICULTY IN BREATHING Albuterol/Ipratropium (Duoneb) 3 ml INH RESP.Q4H [facility] Last Admin: 04/16/19 10:07 Dose: 3 ml Documented by: Azithromycin (Zithromax) 250 mg PO DAILY [facility] Last Admin: 04/16/19 09:58 Dose: 250 mg Documented by: Sodium Chloride () 1,000 mls @ 100 mls/hr IV .Q10H PRN PRN Reason: LARGE VOLUME IV Last Admin: 04/16/19 06:04 Dose: 100 mls/hr Documented by: Latanoprost (Xalatan) 1 drop OPTH QHS [facility] Last Admin: 04/15/19 21:29 Dose: 1 drop Documented by: Methylprednisolone Sodium Succinate (Solu-Medrol) 125 mg IVP DAILY [facility] Last Admin: 04/16/19 09:58 Dose: 125 mg Documented by: Multivitamins/Minerals (Centrum) 1 tab PO DAILY [facility] Last Admin: 04/16/19 09:58 Dose: 1 tab Documented by: Non-Formulary Medication (Lutein [Lutein]) 3 mg PO DAILY [facility] Patient Own Med: Teriparatide [Forteo ] 2.4 Ml 2.4 each SC QHS [facility] Last Admin: 04/15/19 21:29 Dose: 2.4 each Documented by: Patient Own Med: Erythromycin Op 5 Mg /Gm Ointment 1 each RIGHT EYE Q6HR [facility] Last Admin: 04/16/19 06:03 Dose: 1 each Documented by: Physical Exam - Vital Signs Vital Signs: Vital Signs - Last 24 Hrs Temp Pulse Pulse Resp BP BP Pulse Ox 04/16/19 10:08 87 18 96 04/16/19 08:12 98.3 F 81 16 118/52 91 L 04/16/19 08:07 28 H 04/16/19 05:49 68 20 100 04/16/19 05:30 98.7 F 69 16 141/68 100 04/15/19 21:25 67 20 90 L 04/15/19 19:00 71 20 94 L 04/15/19 18:55 97.6 F 69 16 168/69 93 L 04/15/19 18:17 71 20 98 04/15/19 18:06 97.9 F 70 16 113/84 94 L - General General Appearance: Alert (to self only), Cooperative, Mild distress, Other (Cachetic appearing on examination) Limitations: Altered mental status (disoriented to place, time, and situation) - Head Head exam: Atraumatic, Normocephalic, Normal inspection Head exam detail: negative: Abrasion, Contusion, Thomason's sign, General tenderness, Hematoma, Laceration - Eye Eye exam: Scleral icterus (Purulent discharge from the right medial canthus). negative: Periorbital swelling, Periorbital tenderness - ENT Ear exam: negative: Auricular hematoma, Auricular trauma Nasal Exam: negative: Active bleeding, Discharge, Dried blood, Foreign body Mouth exam: negative: Drooling, Laceration, Muffled voice, Tongue elevation - Neck Neck exam: Normal inspection. negative: Meningismus, Tenderness - Respiratory Respiratory exam: Decreased breath sounds, Prolonged expiratory, Wheezes - Cardiovascular Cardiovascular Exam: Regular rate, Normal rhythm, Normal heart sounds Peripheral Pulses: 3+: Radial (R), Radial (L), Dorsalis Pedis (R), Dorsalis Pedis (L) - GI/Abdominal GI/Abdominal exam: Soft, Normal bowel sounds. negative: Rebound, Rigid, Tenderness - Rectal Rectal exam: Deferred - exam: Deferred - Extremities Extremities exam: Normal inspection. negative: Pedal edema, Tenderness - Back Back exam: Denies: CVA tenderness (R), CVA tenderness (L) - Neurological Neurological exam: Alert (to self only). negative: Motor sensory deficit, Oriented X3 - Psychiatric Psychiatric exam: Anxious, Normal mood, Other (pt has tangent ideas, does not answer questions asked) - Skin Skin exam: Dry, Intact (scarum covered for prevention), Normal color, Warm. negative: Abrasion Type of lesion: negative: abrasion Results - Labs Result Diagrams: 04/16/19 05:55 Labs Last 24 Hours: Laboratory Results - last 24 hr 04/16/19 05:55 Sodium 144 Potassium 3.8 Chloride 99 Carbon Dioxide 28.0 Anion Gap 17.0 H BUN 24 H Creatinine 0.5 L Estimated GFR > 60 Random Glucose 116 H Calcium 8.3 L - Imaging and Cardiology Chest x-ray Status: Pending (new CXR ordered, prev audio clip reviewed from 04/14) VTE H&P Assessment - Risk for VTE Risk for VTE: Yes Risk Level: High Risk Assessment Date: 04/16/19 Risk Assessment Time: 12:31 VTE Orders Placed or Will Be Placed: Yes Plan - Inpatient Certification Inpatient Certification: Admit to inpatient care: Based on my medical assessment, after consideration of patient's risk factors (age, co-morbidities and patient presenting symptoms and acuity), I expect that this patient will remain in the hospital greater than or equal to two midnights and that the services needed warrant inpatient care because: Patient Risk Factors: electrolyte imbalance, hypoxia, treatment resistance r/t memory concerns Estimated length of stay: The patient may reasonably be expected to be discharged or transferred to a hospital within 96 hours after admission to [facility]. Services needed: alb neb tx, electrolyte mgt/replacement, supplemental O2 PRN Post hospital care (if known): [] I certify that my determination is in accordance with my understanding of Medicare requirements for reasonable and necessary inpatient services. 04/16/19 12:32 - Detailed Diagnosis and Plan (1) COPD exacerbation Current Visit: Yes Status: Acute Base Code: J44.1 - CHRONIC OBSTRUCTIVE PULMONARY DISEASE W (ACUTE) EXACERBATION Comment: 04/16/19 -pt is wheezing audiably, neb tx QID and PRN -solumedrol 125mg IVP changed to 60mg IVP daily, transition to PO when wheezing has decreased -supplemental O2 to maintain sat >90% -continue PO aBX started outp -CXR today (2) Dementia Current Visit: Yes Status: Acute Qualifiers: Dementia type: unspecified type Dementia behavioral disturbance: with behavioral disturbance Qualified Code(s): F03.91 - Unspecified dementia with behavioral disturbance Base Code: F03.90 - UNSPECIFIED DEMENTIA WITHOUT BEHAVIORAL DISTURBANCE Comment: 04/16/19 -pt reports worsening of symptoms in the past 2 weeks, she does not feel she is able to care for him in the home anymore, wants terminal carman placement assistance -UA ordered, repeat labs in the AM -pt has NOT been aggressive with staff but is disoriented to time, place, and situation but maintains orientation to self but does not maintain reorientation -pt placed close to the nursing station with a bed alarm -mall plant caretaker to assist with placment in the AM - at bedside this afternoon (3) DNR (do not resuscitate) Current Visit: No Status: Acute Base Code: Z66 - DO NOT RESUSCITATE Comment: 04/16/19 - DNR status put in by ED, DPOA paperwork scanned to chart in the ER for DNR and designated DPOA (4) DVT prophylaxis Current Visit: No Status: Acute Base Code: [id number] - Comment: 04/16/19 -lovenox 40mg SQ r/t age, decreased mobility and PO intake
[2019-04-16] MEDS: METHYLPREDNISOLONE PF 125MG/VIAL IVP SCH ×2 (13:14→20:30)
[2019-04-16] MEDS: ENOXAPARIN 40 MG/0.4 ML SYR SQ SCH (13:14)
[2019-04-16 17:37] LABS: URINE APPEARANCE CLEAR; URINE BILIRUBIN SMALL (NEGATIVE); URINE BLOOD NEGATIVE (NEGATIVE); URINE COLOR YELLOW; URINE GLUCOSE (UA) NEGATIVE (NEGATIVE); URINE KETONE 15 mg/dL (NEGATIVE); URINE LEUKOCYTE ESTERASE NEGATIVE (NEGATIVE); URINE NITRITE NEGATIVE (NEGATIVE); URINE PROTEIN NEGATIVE (NEGATIVE)
[2019-04-16] MEDS: TERIPARATIDE SC SCH (21:17)
[2019-04-16] MEDS: LATANOPROST 0.005% OPTH SOLUTION 2.5ML BOTTLE OPTH SCH (21:20)
[2019-04-17] MEDS: 0.9 % SODIUM CHLORIDE 1000ML 1,000 ML IV PRN (01:19)
[2019-04-17] MEDS: IPRATROPIUM/ALBUTEROL (0.5MG/3MG) NEB INH SCH ×6 (03:39→21:37)
[2019-04-17] MEDS: METHYLPREDNISOLONE PF 125MG/VIAL IVP SCH ×2 (04:43→10:05)
[2019-04-17] MEDS: ERYTHROMYCIN OP RIGHT EYE SCH ×3 (05:51→17:50)
--- NOTE | 2019-04-17 06:32 | RADIOLOGY REPORT ---
EXAM: CHEST, TWO VIEWS HISTORY: WHEEZING AND COUGHING TODAY. TECHNIQUE: Two views of the chest were obtained. Comparison: 04/14/19. FINDINGS: The patient is rotated to the left. Inspiration is satisfactory. There is no evidence of pneumonia, effusion, edema or pneumothorax. The heart is of normal size. There is air within the hepatic flexure of the colon that is right underneath the right hemidiaphragm. IMPRESSION: NO ACUTE CHEST PATHOLOGY. JOB NUMBER: [id number] [facility]
[2019-04-17 06:36] LABS: ABSOLUTE NEUTROPHIL COUNT 17.64; BASO % 0.1 % (0-6); HEMOGLOBIN 11.2 gm/dl (14.0-18.0); LYMPH % 7.7 % (16-45); MEAN CELL VOLUME 89.3 fl (81-97); MEAN CORPUSCULAR HGB CONC 31.1 g/dl (32-36); MEAN PLATELET VOLUME 10.1 fl (7.4-10.4); MONO % 3.8 % (0-9); PLATELET COUNT 304 K/uL (130-400); RED BLOOD COUNT 4.03 M/uL (4.40-5.70); RED CELL DISTRIBUTION WIDTH 17.3 % (11.5-14.5)
[2019-04-17 06:51] LABS: BLOOD UREA NITROGEN 21 mg/dL (8-23); CREATININE 0.4 mg/dL (0.7-1.2); EST GLOMERULAR FILTRATION RATE > 60 mL/min; GLUCOSE,RANDOM 141 mg/dL (74-109)
[2019-04-17 06:52] LABS: MEAN CORPUSCULAR HEMOGLOBIN 27.7 pg (27-33)
[2019-04-17 07:12] LABS: ANISOCYTOSIS 1+; PLATELET ESTIMATE NORMAL (NORMAL); TOXIC GRANULATION 1+
[2019-04-17] MEDS: MULTIVITAMINS/MINERALS TABLET PO SCH (10:04)
[2019-04-17] MEDS: AZITHROMYCIN 250 MG TABLET PO SCH (10:04)
[2019-04-17] MEDS: ENOXAPARIN 40 MG/0.4 ML SYR SQ SCH (10:04)
[2019-04-17] MEDS ORDERED: POTASSIUM CHLORIDE 20 MEQ/15ML CUP PO ONE (10:06)
[2019-04-17] MEDS: BREO (FLUTICASONE/VILANTEROL) 200MCG/25MCG INHALER INH SCH (10:18)
--- NOTE | 2019-04-17 11:18 | Physician Progress Note ---
Subjective - Date Date of Physician Progress Note: 04/17/19 - Subjective Subjective Comment: 04/17/19 Pt resting in bed, no aggression but remains confused. No audible wheezing noted this AM Objective - Vital Signs Vital Signs: Vital Signs - Last 24 Hrs Temp Pulse Pulse Resp BP BP Pulse Ox 04/17/19 10:19 87 18 95 04/17/19 07:51 20 04/17/19 07:40 97.8 F 71 16 150/85 93 L 04/17/19 05:51 80 20 92 L 04/16/19 21:40 97.8 F 76 20 114/66 92 L 04/16/19 21:31 92 H 20 91 L 04/16/19 21:00 76 20 04/16/19 17:54 87 18 96 04/16/19 15:51 98.8 F 76 16 118/56 91 L 04/16/19 15:29 98.3 F 118/52 04/16/19 13:50 89 18 97 - General General Appearance: Alert (to self only), Cooperative, Mild distress, Other (Cachetic appearing on examination) Limitations: Altered mental status (disoriented to place, time, and situation) - Head Head exam: Atraumatic, Normocephalic, Normal inspection Head exam detail: negative: Abrasion, Contusion, Thomason's sign, General t enderness, Hematoma, Laceration - Eye Eye exam: Scleral icterus (Purulent discharge from the right medial canthus). negative: Periorbital swelling, Periorbital tenderness - ENT Ear exam: negative: Auricular hematoma, Auricular trauma Nasal Exam: negative: Active bleeding, Discharge, Dried blood, Foreign body Mouth exam: negative: Drooling, Laceration, Muffled voice, Tongue elevation - Neck Neck exam: Normal inspection. negative: Meningismus, Tenderness - Respiratory Respiratory exam: Decreased breath sounds, Prolonged expiratory, Wheezes - Cardiovascular Cardiovascular Exam: Regular rate, Normal rhythm, Normal heart sounds Peripheral Pulses: 3+: Radial (R), Radial (L), Dorsalis Pedis (R), Dorsalis Pedis (L) - GI/Abdominal GI/Abdominal exam: Soft, Normal bowel sounds. negative: Rebound, Rigid, Tenderness - Rectal Rectal exam: Deferred - exam: Deferred - Extremities Extremities exam: Normal inspection. negative: Pedal edema, Tenderness - Back Back exam: Denies: CVA tenderness (R), CVA tenderness (L) - Neurological Neurological exam: Alert (to self only). negative: Motor sensory deficit, Oriented X3 - Psychiatric Psychiatric exam: Anxious, Normal mood, Other (pt has tangent ideas, does not answer questions asked) - Skin Skin exam: Dry, Intact (scarum covered for prevention), Normal color, Warm. negative: Abrasion Type of lesion: negative: abrasion Assessment and Plan - Assessment and Plan (1) COPD exacerbation Current Visit: Yes Status: Acute Base Code: J44.1 - CHRONIC OBSTRUCTIVE PULMONARY DISEASE W (ACUTE) EXACERBATION Comment: 04/17/19 -wheezing has improved with steroids, neb tx -continue steroids and neb tx, continue to monitor symptoms -maintain o2 sat >90% 04/16/19 -pt is wheezing audiably, neb tx QID and PRN -solumedrol 125mg IVP changed to 60mg IVP daily, transition to PO when wheezing has decreased -supplemental O2 to maintain sat >90% -continue PO aBX started outp -CXR today (2) Leukocytosis Current Visit: No Status: Acute Base Code: D72.829 - ELEVATED WHITE BLOOD CELL COUNT, UNSPECIFIED Comment: 04/17/19 -no labs from ER to compare this visit -CXR stable, KUB ordered -UA neg -procalcitonin pending -pt does not appear in distress, possible SIRS or steroid induced (3) Dementia Current Visit: Yes Status: Acute Qualifiers: Dementia type: unspecified type Dementia behavioral disturbance: with behavioral disturbance Qualified Code(s): F03.91 - Unspecified dementia with behavioral disturbance Base Code: F03.90 - UNSPECIFIED DEMENTIA WITHOUT BEHAVIORAL DISTURBANCE Comment: 04/17/19 -staff report pt is not sleeping well, calling out but not aggressive -will attempt risperdol this HS to allow pt to sleep - not present this AM -UA neg for infection 04/16/19 -pt reports worsening of symptoms in the past 2 weeks, she does not feel she is able to care for him in the home anymore, wants manager terminal placement assistance -UA ordered, repeat labs in the AM -pt has NOT been aggressive with staff but is disoriented to time, place, and situation but maintains orientation to self but does not maintain reorientation -pt placed close to the nursing station with a bed alarm -assisted living care manager to assist with placment in the AM - at bedside this afternoon (4) DNR (do not resuscitate) Current Visit: No Status: Acute Base Code: Z66 - DO NOT RESUSCITATE Comment: 04/17/19 - DNR status put in by ED, DPOA paperwork scanned to chart in the ER for DNR and designated DPOA (5) DVT prophylaxis Current Visit: No Status: Acute Base Code: [id number] - Comment: 04/17/19 -lovenox 40mg SQ r/t age, decreased mobility and PO intake Results - Labs Result Diagrams: 04/17/19 06:20 04/17/19 06:20 Labs Last 24 Hours: Laboratory Results - last 24 hr 04/16/19 04/16/19 04/17/19 11:53 17:15 06:20 WBC 20.0 H RBC 4.03 L Hgb 11.2 L Hct 36.0 L MCV 89.3 MCH 27.7 MCHC 31.1 L RDW 17.3 H Plt Count 304 MPV 10.1 Neutrophils % 86.0 H Band Neutrophils % 4.0 Lymphocytes % 7.7 L Monocytes % 3.8 Eosinophils % 0.0 Basophils % 0.1 Absolute Neutrophils 17.64 Lymphocytes 7.0 L Monocytes 3.0 Toxic Granulation 1+ Platelet Estimate Normal Anisocytosis 1+ Sodium Potassium 3.3 L Chloride Carbon Dioxide Anion Gap BUN Creatinine Estimated GFR Random Glucose Calcium Urine Color Yellow Urine Appearance Clear Urine pH 6.5 Ur Specific Riggins 1.020 Urine Protein Negative Urine Glucose (UA) Negative Urine Ketones 15 mg/dl H Urine Blood Negative Urine Nitrite Negative Urine Bilirubin Small H Urine Urobilinogen 1.0 Ur Leukocyte Esterase Negative 04/17/19 06:20 WBC RBC Hgb Hct MCV MCH MCHC RDW Plt Count MPV Neutrophils % Band Neutrophils % Lymphocytes % Monocytes % Eosinophils % Basophils % Absolute Neutrophils Lymphocytes Monocytes Toxic Granulation Platelet Estimate Anisocytosis Sodium 142 Potassium 3.2 L Chloride 104 Carbon Dioxide 29.0 Anion Gap 9.0 BUN 21 Creatinine 0.4 L Estimated GFR > 60 Random Glucose 141 H Calcium 8.6 L Urine Color Urine Appearance Urine pH Ur Specific Riggins Urine Protein Urine Glucose (UA) Urine Ketones Urine Blood Urine Nitrite Urine Bilirubin Urine Urobilinogen Ur Leukocyte Esterase - Imaging and Cardiology Chest x-ray Status: Report reviewed DVT/PE Assessment - Risk for VTE Risk for VTE: Yes Risk Level: High Risk Assessment Date: 04/16/19 Risk Assessment Time: 12:31 VTE Orders Placed or Will Be Placed: Yes - Active Medicaitons Current Medications: Current Medications Acetaminophen (Tylenol 325mg) 650 mg PO Q4H PRN PRN Reason: PAIN - MILD(1-4)/FEVER Albuterol Sulfate (Albuterol Sulfate) 2.5 mg INH RESP.Q2H PRN PRN Reason: DIFFICULTY IN BREATHING Albuterol/Ipratropium (Duoneb) 3 ml INH RESP.Q4H [facility] Last Admin: 04/17/19 10:18 Dose: 3 ml Documented by: Azithromycin (Zithromax) 250 mg PO DAILY [facility] Last Admin: 04/17/19 10:04 Dose: 250 mg Documented by: Nystatin 30 gm/ Al Hydroxide/Mg Hydroxide 30 ml/ Zinc Oxide 30 gm 0 gm TOP QID [facility] Enoxaparin Sodium (Lovenox) 40 mg SQ DAILY [facility] Last Admin: 04/17/19 10:04 Dose: 40 mg Documented by: Latanoprost (Xalatan) 1 drop OPTH QHS [facility] Last Admin: 04/16/19 21:20 Dose: 1 drop Documented by: Methylprednisolone Sodium Succinate (Solu-Medrol) 60 mg IVP DAILY [facility] Last Admin: 04/17/19 10:05 Dose: 60 mg Documented by: Multivitamins/Minerals (Centrum) 1 tab PO DAILY [facility] Last Admin: 04/17/19 10:04 Dose: 1 tab Documented by: Nystatin (Nystop) 5 gm TP TID [facility] Patient Own Med: Teriparatide [Forteo ] 2.4 Ml 2.4 each SC QHS [facility] Last Admin: 04/16/19 21:17 Dose: 2.4 each Documented by: Patient Own Med: Erythromycin Op 5 Mg /Gm Ointment 1 each RIGHT EYE Q6HR [facility] Last Admin: 04/17/19 05:51 Dose: 1 each Documented by: Risperidone (Risperadol) 1 mg PO QHS [facility] AMI Plan - Labs Result Diagrams: 04/17/19 06:20 04/17/19 06:20
--- NOTE | 2019-04-17 11:21 | Physician Addendum ---
Addendum (Physician) 04/17/19 11:19 Nursing staff reports red scrotum. Elida Jarrell assistant research scientist, scrotum is red, shaft of penis and josefina groin are red, no increased warmth or discharge noted. pt denies pain. Odor noted, concerns for yeast infection of skin. topical tx ordered and nursing staff to maintain clean, dry periarea
[2019-04-17] MEDS: NYSTATIN 15 GM POWDER TP SCH ×3 (11:31→21:52)
[2019-04-17] MEDS: NYSTATIN TOP SCH ×9 (14:54→21:53)
[2019-04-17] MEDS: ZINC OXIDE TOP SCH ×9 (14:54→21:53)
[2019-04-17] MEDS: MAGNESIUM HYDROXIDE TOP SCH ×9 (14:54→21:53)
[2019-04-17] MEDS: AL HYDROX TOP SCH ×9 (14:54→21:53)
[2019-04-17] MEDS: TERIPARATIDE SC SCH (21:49)
[2019-04-17] MEDS: LATANOPROST 0.005% OPTH SOLUTION 2.5ML BOTTLE OPTH SCH (21:51)
[2019-04-18] MEDS: ERYTHROMYCIN OP RIGHT EYE SCH ×5 (02:04→23:52)
[2019-04-18] MEDS: IPRATROPIUM/ALBUTEROL (0.5MG/3MG) NEB INH SCH ×7 (02:29→23:35)
--- NOTE | 2019-04-18 08:12 | RADIOLOGY REPORT ---
EXAM: ABDOMEN, ONE VIEW HISTORY: LEUKOCYTOSIS. TECHNIQUE: AP supine views of the abdomen are obtained. Comparison: Two view chest radiographic examination dated 04/16/19. FINDINGS: Gas and stool are noted throughout a nondilated colon to the level of the rectum. Multiple gas distended, nondilated small bowel loops are identified. These are nonspecific. No mass, organomegaly, or suspicious calcification is seen. There is diffuse atherosclerotic calcification. There are degenerative changes scattered within the visualized spine and hips. There are likely chronic compression deformities of the T11 and L1 vertebral bodies. IMPRESSION: 1. NO GROSS BOWEL DILATATION IS SEEN. SEVERAL GAS DISTENDED NONDILATED SMALL BOWEL LOOPS ARE PRESENT. THIS IS NONSPECIFIC AND MAY RELATE TO AEROPHAGIA. NO SUSPICIOUS MASS OR CALCIFICATION. 2. DIFFUSE ATHEROSCLEROSIS. [facility]BER: [id number] [facility]
[2019-04-18] MEDS: AZITHROMYCIN 250 MG TABLET PO SCH (09:17)
[2019-04-18] MEDS: MULTIVITAMINS/MINERALS TABLET PO SCH (09:17)
[2019-04-18] MEDS: METHYLPREDNISOLONE PF 125MG/VIAL IVP SCH (09:17)
[2019-04-18] MEDS: ENOXAPARIN 40 MG/0.4 ML SYR SQ SCH (09:17)
--- NOTE | 2019-04-18 11:06 | Physician Progress Note ---
Subjective - Date Date of Physician Progress Note: 04/19/19 - Subjective Subjective Comment: 04/17/19 Pt resting in bed, no aggression but remains confused. No audible wheezing noted this AM Objective - Vital Signs Vital Signs: Vital Signs - Last 24 Hrs Temp Pulse Pulse Resp BP Pulse Ox 04/18/19 09:43 68 16 97 04/18/19 07:35 97.5 F L 66 12 138/80 94 L 04/18/19 06:00 58 L 20 92 L 04/17/19 21:45 97.9 F 68 18 130/72 94 L 04/17/19 21:37 68 20 94 L 04/17/19 21:00 68 18 04/17/19 17:43 68 18 95 04/17/19 16:00 97.5 F L 66 16 135/71 96 - General General Appearance: Alert (to self only), Cooperative, No acute distress, Other (Cachetic appearing on examination) Limitations: Altered mental status (disoriented to place, time, and situation) - Head Head exam: Atraumatic, Normocephalic, Normal inspection Head exam detail: negative: Abrasion, Contusion, Thomason's sign, General tendern ess, Hematoma, Laceration - Eye Eye exam: Scleral icterus (Purulent discharge from the right medial canthus). negative: Periorbital swelling, Periorbital tenderness - ENT Ear exam: negative: Auricular hematoma, Auricular trauma Nasal Exam: negative: Active bleeding, Discharge, Dried blood, Foreign body Mouth exam: negative: Drooling, Laceration, Muffled voice, Tongue elevation - Neck Neck exam: Normal inspection. negative: Meningismus, Tenderness - Respiratory Respiratory exam: Decreased breath sounds, Prolonged expiratory, Wheezes - Cardiovascular Cardiovascular Exam: Regular rate, Normal rhythm, Normal heart sounds Peripheral Pulses: 3+: Radial (R), Radial (L), Dorsalis Pedis (R), Dorsalis Pedis (L) - GI/Abdominal GI/Abdominal exam: Soft, Normal bowel sounds. negative: Rebound, Rigid, Tenderness - Rectal Rectal exam: Deferred - exam: Deferred - Extremities Extremities exam: Normal inspection. negative: Pedal edema, Tenderness - Back Back exam: Denies: CVA tenderness (R), CVA tenderness (L) - Neurological Neurological exam: Alert (to self only). negative: Motor sensory deficit, Oriented X3 - Psychiatric Psychiatric exam: Anxious, Normal mood, Other (pt has tangent ideas, does not answer questions asked) - Skin Skin exam: Dry, Intact (scarum covered for prevention), Normal color, Warm. negative: Abrasion Type of lesion: negative: abrasion Assessment and Plan - Assessment and Plan (1) COPD exacerbation Current Visit: Yes Status: Acute Base Code: J44.1 - CHRONIC OBSTRUCTIVE PULMONARY DISEASE W (ACUTE) EXACERBATION Comment: 04/18/19 -wheezing improved, continue neb tx -cont steroids 04/17/19 -wheezing has improved with steroids, neb tx -continue steroids and neb tx, continue to monitor symptoms -maintain o2 sat >90% 04/16/19 -pt is wheezing audiably, neb tx QID and PRN -solumedrol 125mg IVP changed to 60mg IVP daily, transition to PO when wheezing has decreased -supplemental O2 to maintain sat >90% -continue PO aBX started outp -CXR today (2) Leukocytosis Current Visit: No Status: Acute Base Code: D72.829 - ELEVATED WHITE BLOOD CELL COUNT, UNSPECIFIED Comment: 04/18/19 -no labs from ER to compare this visit -CXR stable, KUB ordered -UA neg -procalcitonin pending -pt does not appear in distress, possible SIRS or steroid induced (3) Dementia Current Visit: Yes Status: Acute Qualifiers: Dementia type: unspecified type Dementia behavioral disturbance: with behavioral disturbance Qualified Code(s): F03.91 - Unspecified dementia with behavioral disturbance Base Code: F03.90 - UNSPECIFIED DEMENTIA WITHOUT BEHAVIORAL DISTURBANCE Comment: 04/18/19 -nursing reports pt is sleeping better, not using call light but does yell out for assistance -continue bed alarm, awaiting placement for d/c 04/17/19 -staff report pt is not sleeping well, calling out but not aggressive -will attempt risperdol this HS to allow pt to sleep - not present this AM -UA neg for infection 04/16/19 -pt reports worsening of symptoms in the past 2 weeks, she does not feel she is able to care for him in the home anymore, wants termite exterminator placement assistance -UA ordered, repeat labs in the AM -pt has NOT been aggressive with staff but is disoriented to time, place, and situation but maintains orientation to self but does not maintain reorientation -pt placed close to the nursing station with a bed alarm -transitions rn care coordinator to assist with placment in the AM - at bedside this afternoon (4) DNR (do not resuscitate) Current Visit: No Status: Acute Base Code: Z66 - DO NOT RESUSCITATE Comment: 04/18/19 - DNR status put in by ED, DPOA paperwork scanned to chart in the ER for DNR and designated DPOA (5) DVT prophylaxis Current Visit: No Status: Acute Base Code: [id number] - Comment: 04/18/19 -lovenox 40mg SQ r/t age, decreased mobility and PO intake Results - Labs Result Diagrams: 04/18/19 12:05 04/18/19 12:05 Labs Last 24 Hours: Laboratory Results - last 24 hr 04/17/19 11:17 Procalcitonin 0.124 DVT/PE Assessment - Risk for VTE Risk for VTE: No Risk Level: High Risk Assessment Date: 04/16/19 Risk Assessment Time: 12:31 VTE Orders Placed or Will Be Placed: Yes - Active Medicaitons Current Medications: Current Medications Acetaminophen (Tylenol 325mg) 650 mg PO Q4H PRN PRN Reason: PAIN - MILD(1-4)/FEVER Albuterol Sulfate (Albuterol Sulfate) 2.5 mg INH RESP.Q2H PRN PRN Reason: DIFFICULTY IN BREATHING Albuterol/Ipratropium (Duoneb) 3 ml INH RESP.Q4H [facility] Last Admin: 04/18/19 09:41 Dose: 3 ml Documented by: Azithromycin (Zithromax) 250 mg PO DAILY [facility] Last Admin: 04/18/19 09:17 Dose: 250 mg Documented by: Nystatin 30 gm/ Al Hydroxide/Mg Hydroxide 30 ml/ Zinc Oxide 30 gm 0 gm TOP QID [facility] Last Admin: 04/17/19 21:53 Dose: 1 cr Documented by: Enoxaparin Sodium (Lovenox) 40 mg SQ DAILY [facility] Last Admin: 04/18/19 09:17 Dose: 40 mg Documented by: Latanoprost (Xalatan) 1 drop OPTH QHS [facility] Last Admin: 04/17/19 21:51 Dose: 1 drop Documented by: Methylprednisolone Sodium Succinate (Solu-Medrol) 60 mg IVP DAILY [facility] Last Admin: 04/18/19 09:17 Dose: 60 mg Documented by: Multivitamins/Minerals (Centrum) 1 tab PO DAILY [facility] Last Admin: 04/18/19 09:17 Dose: 1 tab Documented by: Nystatin (Nystop) 5 gm TP TID [facility] Last Admin: 04/17/19 21:52 Dose: 5 gm Documented by: Patient Own Med: Teriparatide [Forteo ] 2.4 Ml 2.4 each SC QHS [facility] Last Admin: 04/17/19 21:49 Dose: 2.4 each Documented by: Patient Own Med: Erythromycin Op 5 Mg /Gm Ointment 1 each RIGHT EYE Q6HR [facility] Last Admin: 04/18/19 05:54 Dose: 1 each Documented by: Potassium Chloride (Potassium Chloride) 20 meq PO NOW [facility] Risperidone (Risperadol) 1 mg PO QHS [facility] AMI Plan - Labs Result Diagrams: 04/18/19 12:05 04/18/19 12:05
[2019-04-18] MEDS ORDERED: POTASSIUM CHLORIDE 20 MEQ/15ML CUP PO SCH (11:15)
[2019-04-18 12:21] LABS: BASO % 0.1 % (0-6); HEMATOCRIT 40.4 % (42.0-52.0); HEMOGLOBIN 12.8 gm/dl (14.0-18.0); LYMPH % 4.2 % (16-45); MEAN CELL VOLUME 89.8 fl (81-97); MEAN CORPUSCULAR HEMOGLOBIN 28.4 pg (27-33); MEAN CORPUSCULAR HGB CONC 31.7 g/dl (32-36); MEAN PLATELET VOLUME 10.1 fl (7.4-10.4); PLATELET COUNT 352 K/uL (130-400); RED CELL DISTRIBUTION WIDTH 17.3 % (11.5-14.5); WHITE BLOOD COUNT W/O DIFF 19.6 K/uL (4.2-12.2)
[2019-04-18 12:35] LABS: BLOOD UREA NITROGEN 17 mg/dL (8-23); CREATININE 0.5 mg/dL (0.7-1.2); EST GLOMERULAR FILTRATION RATE > 60 mL/min
[2019-04-18 12:38] LABS: GLUCOSE,RANDOM 109 mg/dL (74-109)
[2019-04-18] MEDS: NYSTATIN 15 GM POWDER TP SCH ×3 (14:10→23:47)
[2019-04-18] MEDS: ZINC OXIDE TOP SCH ×12 (14:10→23:51)
[2019-04-18] MEDS: AL HYDROX TOP SCH ×12 (14:10→23:51)
[2019-04-18] MEDS: MAGNESIUM HYDROXIDE TOP SCH ×12 (14:10→23:51)
[2019-04-18] MEDS: NYSTATIN TOP SCH ×12 (14:10→23:51)
[2019-04-18] MEDS: BREO (FLUTICASONE/VILANTEROL) 200MCG/25MCG INHALER INH SCH (14:12)
--- NOTE | 2019-04-18 14:24 | Rehab Evaluation ---
Patient Information - Patient Information Diagnosis: COPD exacerbation, dementia Ordered Treatment: OT Evaluate and Treat Status: Initial Evaluation Surgery: No Past Medical/Surgical Hx: PAST MEDICAL/SURGICAL HISTORY Past Surgical History cystoscopy/TURP dental surgery (upper teeth pulled) hemorrhoidectomy eye surgery (eyelids) kwaku CATS rt eye sx with biopsy glaucoma PMH - Respiratory Hx Respiratory Disorders Yes Hx Chronic Obstructive Yes Pulmonary Disease (COPD) Hx Dyspnea Yes: with exertion Hx of Oxygen Therapy Yes: prn at night PMH - Cardiovascular Hx Cardiovascular Disorders No PMH - Neuro Hx Neurological Disorders Yes Hx Dementia Yes Comment: some loss of memory PMH - GI Hx Gastrointestinal Disorders No PMH - Hx Genitourinary Disorders Yes Hx Bladder Problem Yes: onset 03/29 Hx Prostate Problems Yes: enlarged prostate Hx Urinary Tract Infection Yes Comment: currently has indwelling catheter since 03/29 PMH - Endocrine Hx Endocrine Disorders No PMH - Musculoskeletal Hx Musculoskeletal Disorders Yes Hx Arthritis Yes: hands PMH - Psych Hx Psychiatric Problems No PMH - Hematology/Oncology Hx Hematology/Oncology No Disorders Premorbid Status: Detail (Pt lives with spouse in a 1 1/2 story house, his bedroom is on the upper level and the living area and bathroom are on the lower level. He uses a urinal at night. He has 2 steps at the entrance, no railings. He has a tub/shower combination and stands to shower and a standard height toilet, no grab bars. His spouse assists him with self cares as needed due to dementia. Spouse is responsible for all IADLs. Pt ambulates without an assistive device.) Social History: Detail (Pt has a supportive spouse.) Precautions: [place], Fall, Other (impaired cognition) - Time With Patient Total Time Spent With Patient (Min): 35 Treatment Procedures: Detail (OT eval low compexity) Subjective Information - Subjective Information Per Patient Objective Data - Pain Pain Present: No - Mental Status Patient Orientation: Person (Pt oriented to self, age, birthday and location. He was not oriented to month or year.), Place - Visual Perception Deficit (Per spouse pt has difficulty with right eye vision. No functional deficits were observed.) - ROM Not within normal limits (Kwaku UE AROM grossly WNL with exception of kwaku shoulder flexion which was limited to approx. 110 degrees.) - Strength/Tone Not within normal limits (Kwaku shoulder flexion 4-/5, kwaku elbow flexion, extension and development administrator 4+/5) - Coordination Appears within normal limits for therapeutic activities - Bed Mobility Independent (Ind with supine to sit and sit to supine.) - Transfers Independent (Pt able to stand from EOB with SBA) - Balance Balance Sitting: Good Balance Standing: Fair - Sensation Intact - Gait Detail (Pt ambulating short distances with CG assist. He was very short of breath with ambulation.) - ADL's/IADL's Detail (Pt required verbal cues for combing hair, nursing and spouse assisting with self cares. ADLs not formally assessed at this time due to pt fatigue and shortness of breath.) Therapy Assessment - Therapy Assessment Detail (Pt presents with significant shortness of breath with activity as well as decreased Ind with self cares.) Problem List - Problem List Occupational Therapy Problem List: Detail (1. Decreased tolerance to activity. 2. Decreased Ind with self cares.) Goals - Goals Occupational Therapy Goals: 1. Pt will complete self care tasks using energy conservation techniques to decrease shortness of breath. 2. Pt will be Ind with grooming/hygiene tasks at sink. Prognosis - Prognosis Moderate Plan - Plan Occupational Therapy Plan: OT 2-4 times per week to address endurance, self cares and functional mobility. Thank you for this referral.
--- NOTE | 2019-04-18 14:28 | Rehab Evaluation ---
Patient Information - Patient Information Diagnosis: COPD exacerbation, dementia Ordered Treatment: PT Evaluate and Treat Status: Initial Evaluation Past Medical/Surgical Hx: PAST MEDICAL/SURGICAL HISTORY Past Surgical History cystoscopy/TURP dental surgery (upper teeth pulled) hemorrhoidectomy eye surgery (eyelids) josefina CATS rt eye sx with biopsy glaucoma PMH - Respiratory Hx Respiratory Disorders Yes Hx Chronic Obstructive Yes Pulmonary Disease (COPD) Hx Dyspnea Yes: with exertion Hx of Oxygen Therapy Yes: prn at night PMH - Cardiovascular Hx Cardiovascular Disorders No PMH - Neuro Hx Neurological Disorders Yes Hx Dementia Yes Comment: some loss of memory PMH - GI Hx Gastrointestinal Disorders No PMH - Hx Genitourinary Disorders Yes Hx Bladder Problem Yes: onset 03/29 Hx Prostate Problems Yes: enlarged prostate Hx Urinary Tract Infection Yes Comment: currently has indwelling catheter since 03/29 PMH - Endocrine Hx Endocrine Disorders No PMH - Musculoskeletal Hx Musculoskeletal Disorders Yes Hx Arthritis Yes: hands PMH - Psych Hx Psychiatric Problems No PMH - Hematology/Oncology Hx Hematology/Oncology No Disorders Premorbid Status: Detail (Patient lives with in a one and a half story house with one step, a landing and one step at the enterance. The patient's bedroom is on the second floor and bathroom on the main floor. The bathroom is equipped with a tub/shower combination and a standard toilet. The patient's completes all housework and assist patient with bathing and dressing. The patient was ambulatory without device prior to admission however patient did have a quad cane which he rarely used according to his .) Precautions: [place], Fall - Time With Patient Total Time Spent With Patient (Min): 30 Treatment Procedures: Detail (Initial Evaluation, low complexity) Subjective Information - Subjective Information Per Patient (The patient had no complaints.) Objective Data - Mental Status Patient Orientation: Person, Place, Time (The patient knew his birthdate and age but did not know current month or year. The patient knew he was in [facility]. The patient had difficulty indentifying who his was.) - ROM Within normal limits (The patient's LE AROM was WNL.) - Strength/Tone Within normal limits (The patient's LE strength was generally 4+to 5/5. The patient exhibited shortness of breath after strength testing . SPO2 was measured as 83 and returned to 91 after 2 minutes of rest and deep breathing techniques.) - Bed Mobility Independent (The patient was independent with supine to and from sit transfer.) - Transfers Independent (The patient was independent with sit to and from stand transfer.) - Balance Balance Sitting: Good Balance Standing: Fair (The patient scored 17/28 on the Tinetti Assessment Tool which is in the high risk for falls category. The patient exhibited decreased posterior balance reaction and stood with a wide base of support.) - Gait Detail (The patient ambulated without device with CG for safety due to occasional stagger step a distance of 40 feet x 1 with shortness of breath. The patient's gait pattern was charecterized by decreased stride length, decreased heel to toe weight shift, wide base of support and occasional stagger step. SPO2 level was maintained in the 90's.) Therapy Assessment - Therapy Assessment Detail (The patient exhibits decreased balance, shortness of breath with physical activity and unsteady gait pattern. Feel the patient would benefit from subacute rehab PT to improve the patient's balance and gait pattern and increase patient's overall endurance for physical activity.) Problem List - Problem List Physical Therapy Problem List: Detail (1)Decreased balance in standing 2) Decreased ability to complete prolonged physical activity 3) Unsteady gait pattern.) Goals - Goals Physical Therapy Goals: 1) The patient will ambulate household distances with supervision for safety without stagger steps and with minimal shortness of breath. 2) The patient's balance will improve by 3 to 4 points on the Tinetti Assessment Tool (clinical significant). 3) The patient will tolerate 20 minutes of physical activity with one to two rest periods and maintain SPO2 level 88 and above. Plan - Plan Physical Therapy Plan: PT daily M-F for gait training, balance and endurance exercises.
[2019-04-18] MEDS: RISPERIDONE 1 MG TABLET PO SCH (23:45)
[2019-04-18] MEDS: LATANOPROST 0.005% OPTH SOLUTION 2.5ML BOTTLE OPTH SCH (23:48)
[2019-04-18] MEDS: TERIPARATIDE SC SCH (23:48)
[2019-04-19] MEDS: ERYTHROMYCIN OP RIGHT EYE SCH ×2 (07:04→15:04)
[2019-04-19] MEDS: IPRATROPIUM/ALBUTEROL (0.5MG/3MG) NEB INH SCH ×3 (09:10→18:16)
[2019-04-19] MEDS: MULTIVITAMINS/MINERALS TABLET PO SCH (09:25)
[2019-04-19] MEDS: AZITHROMYCIN 250 MG TABLET PO SCH (09:26)
[2019-04-19] MEDS: METHYLPREDNISOLONE PF 125MG/VIAL IVP SCH (09:26)
[2019-04-19] MEDS: ENOXAPARIN 40 MG/0.4 ML SYR SQ SCH (09:26)
--- NOTE | 2019-04-19 09:31 | Physician Progress Note ---
Subjective - Date Date of Physician Progress Note: 04/20/19 - Subjective Subjective Comment: 04/17/19 Pt resting in bed, no aggression but remains confused. No audible wheezing noted this AM 04/19/19 Pt resting comfortably in bed, no distress, was assisted with breakfast as he was confused on food matching options, put his sausage in the pudding and complained of sausage tasting bad. pt was able to finish remaining breakfast with no difficulties. Objective - Vital Signs Vital Signs: Vital Signs - Last 24 Hrs Temp Pulse Pulse Resp BP BP Pulse Ox 04/19/19 09:25 99 F 151/80 04/19/19 09:11 70 16 98 04/19/19 07:37 20 04/18/19 23:30 99 F 69 18 151/80 95 04/18/19 17:57 70 16 97 04/18/19 17:25 86 18 165/97 92 L 04/18/19 14:14 80 16 96 04/18/19 09:43 68 16 97 - General General Appearance: Alert (to self only), Cooperative, No acute distress, Other (Cachetic appearing on examination) Limitations: Altered mental status (disoriented to place, time, and situation) - Head Head exam: Atraumatic, Normocephalic, Normal inspection Head exam detail: negative: Abrasion, Contusion, Thomason's sign, General tenderness, Hematoma, Laceration - Eye Eye exam: Scleral icterus (Purulent discharge from the right medial canthus), Other (right eye continues to have discharge, awaiting opth consult). negative: Periorbital swelling, Periorbital tenderness - ENT ENT exam: Mucous membranes moist, Normal external ear exam Ear exam: Other (right TM occulded with cerumen). negative: Auricular hematoma, Auricular trauma Nasal Exam: Normal inspection. negative: Active bleeding, Discharge, Dried blood, Foreign body Mouth exam: negative: Drooling, Laceration, Muffled voice, Tongue elevation Teeth exam: Other (upper and lowe dentures) Throat exam: Normal inspection - Neck Neck exam: Normal inspection. negative: Lymphadenopathy, Meningismus, Tenderness - Respiratory Respiratory exam: Decreased breath sounds, Prolonged expiratory, Wheezes - Cardiovascular Cardiovascular Exam: Regular rate, Normal rhythm, Normal heart sounds Peripheral Pulses: 2+: Radial (R), Radial (L), Dorsalis Pedis (R), Dorsalis Pedis (L) - GI/Abdominal GI/Abdominal exam: Soft, Normal bowel sounds. negative: Rebound, Rigid, Tenderness - Rectal Rectal exam: Deferred - exam: Deferred - Extremities Extremities exam: Normal inspection. negative: Pedal edema, Tenderness - Back Back exam: Denies: CVA tenderness (R), CVA tenderness (L) - Neurological Neurological exam: Alert (to self only). negative: Motor sensory deficit, Oriented X3 - Psychiatric Psychiatric exam: Anxious, Normal mood, Other (pt has tangent ideas, does not answer questions asked) - Skin Skin exam: Dry, Intact (scarum covered for prevention), Normal color, Warm. negative: Abrasion Type of lesion: negative: abrasion Assessment and Plan - Assessment and Plan (1) COPD exacerbation Current Visit: Yes Status: Acute Base Code: J44.1 - CHRONIC OBSTRUCTIVE PULMONARY DISEASE W (ACUTE) EXACERBATION Comment: 04/19/19 -crackles noted, BNP ordered and pt getting Lasix 20mg IVP -continue neb tx, steroids completed 04/18/19 -wheezing improved, continue neb tx -cont steroids 04/17/19 -wheezing has improved with steroids, neb tx -continue steroids and neb tx, continue to monitor symptoms -maintain o2 sat >90% 04/16/19 -pt is wheezing audiably, neb tx QID and PRN -solumedrol 125mg IVP changed to 60mg IVP daily, transition to PO when wheezing has decreased -supplemental O2 to maintain sat >90% -continue PO aBX started outp -CXR today (2) Leukocytosis Current Visit: No Status: Acute Base Code: D72.829 - ELEVATED WHITE BLOOD CELL COUNT, UNSPECIFIED Comment: 04/19/19 -repeat labs pending 04/18/19 -no labs from ER to compare this visit -CXR stable, KUB ordered -UA neg -procalcitonin pending -pt does not appear in distress, possible SIRS or steroid induced (3) Dementia Current Visit: Yes Status: Acute Qualifiers: Dementia type: unspecified type Dementia behavioral disturbance: with behavioral disturbance Qualified Code(s): F03.91 - Unspecified dementia with behavioral disturbance Base Code: F03.90 - UNSPECIFIED DEMENTIA WITHOUT BEHAVIORAL DISTURBANCE Comment: 04/19/19 -pt resting comfortable in bed, following simple instructions with no issues -continues to wear a brief r/t incontience issues, no aggression noted 04/18/19 -nursing reports pt is sleeping better, not using call light but does yell out for assistance -continue bed alarm, awaiting placement for d/c 04/17/19 -staff report pt is not sleeping well, calling out but not aggressive -will attempt risperdol this HS to allow pt to sleep - not present this AM -UA neg for infection 04/16/19 -pt reports worsening of symptoms in the past 2 weeks, she does not feel she is able to care for him in the home anymore, wants penitentiary placement assistance -UA ordered, repeat labs in the AM -pt has NOT been aggressive with staff but is disoriented to time, place, and situation but maintains orientation to self but does not maintain reorientation -pt placed close to the nursing station with a bed alarm -primary care pediatrician to assist with placment in the AM - at bedside this afternoon (4) DNR (do not resuscitate) Current Visit: No Status: Acute Base Code: Z66 - DO NOT RESUSCITATE Comment: 04/19/19 - DNR status put in by ED, DPOA paperwork scanned to chart in the ER for DNR and designated DPOA (5) DVT prophylaxis Current Visit: No Status: Acute Base Code: [id number] - Comment: 04/19/19 -lovenox 40mg SQ r/t age, decreased mobility and PO intake Results - Labs Result Diagrams: 04/19/19 09:50 04/19/19 09:50 Labs Last 24 Hours: Laboratory Results - last 24 hr 04/18/19 04/18/19 12:05 12:05 WBC 19.6 H RBC 4.50 Hgb 12.8 L Hct 40.4 L MCV 89.8 MCH 28.4 MCHC 31.7 L RDW 17.3 H Plt Count 352 MPV 10.1 Neutrophils % 93.0 H Band Neutrophils % 0.0 Lymphocytes % 4.2 L Monocytes % 5.0 Eosinophils % 0.0 Basophils % 0.1 Absolute Neutrophils 18.20 Lymphocytes 4.0 L Monocytes 3.0 Basophils 0.0 Eosinophil Count 0.0 Sodium 140 Potassium 4.0 Chloride 102 Carbon Dioxide 29.0 Anion Gap 9.0 BUN 17 Creatinine 0.5 L Estimated GFR > 60 Random Glucose 109 Calcium 8.9 DVT/PE Assessment - Risk for VTE Risk for VTE: No Risk Level: High Risk Assessment Date: 04/16/19 Risk Assessment Time: 12:31 VTE Orders Placed or Will Be Placed: Yes - Active Medicaitons Current Medications: Current Medications Acetaminophen (Tylenol 325mg) 650 mg PO Q4H PRN PRN Reason: PAIN - MILD(1-4)/FEVER Albuterol Sulfate (Albuterol Sulfate) 2.5 mg INH RESP.Q2H PRN PRN Reason: DIFFICULTY IN BREATHING Albuterol/Ipratropium (Duoneb) 3 ml INH RESP.Q4H[facility] Last Admin: 04/19/19 09:10 Dose: 3 ml Documented by: Azithromycin (Zithromax) 250 mg PO DAILY [facility] Last Admin: 04/19/19 09:26 Dose: 250 mg Documented by: Nystatin 30 gm/ Al Hydroxide/Mg Hydroxide 30 ml/ Zinc Oxide 30 gm 0 gm TOP QID [facility] Last Admin: 04/18/19 23:51 Dose: 1 cr Documented by: Enoxaparin Sodium (Lovenox) 40 mg SQ DAILY [facility] Last Admin: 04/19/19 09:26 Dose: 40 mg Documented by: Latanoprost (Xalatan) 1 drop OPTH QHS [facility] Last Admin: 04/18/19 23:48 Dose: 1 drop Documented by: Methylprednisolone Sodium Succinate (Solu-Medrol) 60 mg IVP DAILY [facility] Last Admin: 04/19/19 09:26 Dose: 60 mg Documented by: Multivitamins/Minerals (Centrum) 1 tab PO DAILY [facility] Last Admin: 04/19/19 09:25 Dose: 1 tab Documented by: Nystatin (Nystop) 5 gm TP TID [facility] Last Admin: 04/18/19 23:47 Dose: 5 gm Documented by: Patient Own Med: Teriparatide [Forteo ] 2.4 Ml 2.4 each SC QHS [facility] Last Admin: 04/18/19 23:48 Dose: 2.4 each Documented by: Patient Own Med: Erythromycin Op 5 Mg /Gm Ointment 1 each RIGHT EYE Q6HR [facility] Last Admin: 04/19/19 07:04 Dose: Not Given Documented by: Potassium Chloride (Potassium Chloride) 20 meq PO NOW [facility] Risperidone (Risperadol) 1 mg PO QHS [facility] Last Admin: 04/18/19 23:45 Dose: 1 mg Documented by: AMI Plan - Labs Result Diagrams: 04/19/19 09:50 04/19/19 09:50
[2019-04-19] MEDS: AL HYDROX TOP SCH ×15 (09:49→21:49)
[2019-04-19] MEDS: ZINC OXIDE TOP SCH ×15 (09:49→21:49)
[2019-04-19] MEDS: NYSTATIN TOP SCH ×15 (09:49→21:49)
[2019-04-19] MEDS: NYSTATIN 15 GM POWDER TP SCH ×4 (09:49→21:49)
[2019-04-19] MEDS: MAGNESIUM HYDROXIDE TOP SCH ×15 (09:49→21:49)
[2019-04-19 09:57] LABS: ABSOLUTE NEUTROPHIL COUNT 10.48; HEMATOCRIT 38.4 % (42.0-52.0); HEMOGLOBIN 12.1 gm/dl (14.0-18.0); MEAN CELL VOLUME 90.1 fl (81-97); MEAN CORPUSCULAR HEMOGLOBIN 28.4 pg (27-33); MEAN CORPUSCULAR HGB CONC 31.5 g/dl (32-36); MEAN PLATELET VOLUME 9.7 fl (7.4-10.4); PLATELET COUNT 313 K/uL (130-400); RED BLOOD COUNT 4.26 M/uL (4.40-5.70); RED CELL DISTRIBUTION WIDTH 17.4 % (11.5-14.5); WHITE BLOOD COUNT W/O DIFF 13.7 K/uL (4.2-12.2)
[2019-04-19 10:04] LABS: PLATELET ESTIMATE NORMAL (NORMAL)
[2019-04-19 10:05] LABS: BLOOD UREA NITROGEN 11 mg/dL (8-23); CREATININE 0.4 mg/dL (0.7-1.2); EST GLOMERULAR FILTRATION RATE > 60 mL/min
[2019-04-19 10:08] LABS: GLUCOSE,RANDOM 76 mg/dL (74-109)
[2019-04-19] MEDS ORDERED: FUROSEMIDE IV 20MG/2ML VIAL IVP ONE (10:25)
--- NOTE | 2019-04-19 10:40 | Physical Therapy Tx Note ---
Physical Therapy Tx Note - Treatment Note Tolerated: Good Total Time Spent With Patient: 15 Physical Therapy Tx Note: Detail (Pt in bed upon arrival, awake/alert, cooperative for limited therapy (declined going for a walk, stating he had just gotten comfortable). Performed 10 reps each B of hip/knee flexion, short arc quads, hip abduction, straight leg raise, isometric hip adduction w/pillow, and ankle pumps.) Physical Therapy Problem List: Detail (1)Decreased balance in standing 2) Decreased ability to complete prolonged physical activity 3) Unsteady gait pattern.) Physical Therapy Goals: 1) The patient will ambulate household distances with supervision for safety without stagger steps and with minimal shortness of breath. 2) The patient's balance will improve by 3 to 4 points on the Tinetti Assessment Tool (clinical significant). 3) The patient will tolerate 20 minutes of physical activity with one to two rest periods and maintain SPO2 level 88 and above. Physical Therapy Plan: PT daily M-F for gait training, balance and endurance exercises.
[2019-04-19] MEDS: OFLOXACIN 0.3% 5 ML OPTH SOLN OPTH SCH ×3 (14:42→21:48)
[2019-04-19] MEDS: BREO (FLUTICASONE/VILANTEROL) 200MCG/25MCG INHALER INH SCH (19:32)
[2019-04-19] MEDS: RISPERIDONE 1 MG TABLET PO SCH ×2 (20:43→21:49)
[2019-04-19] MEDS: TERIPARATIDE SC SCH ×2 (20:48→21:49)
[2019-04-19] MEDS: LATANOPROST 0.005% OPTH SOLUTION 2.5ML BOTTLE OPTH SCH ×2 (20:49→21:49)
[2019-04-19] MEDS ORDERED: DIPHENHYDRAMINE HCL 25 MG CAPSULE PO PRN (23:03)
[2019-04-20] MEDS: IPRATROPIUM/ALBUTEROL (0.5MG/3MG) NEB INH SCH ×3 (06:19→11:36)
--- NOTE | 2019-04-20 06:36 | Discharge Summary ---
<Nette Briscoe T - Last Filed: 04/20/19 17:32> Providers Discharge Summary Date: 04/20/19 Date of admission: 04/15/19 18:42 Expected Date of Discharge: 04/20/19 Attending physician: DAREK HUTCHINSON Primary care physician: STEVE MART D.O. Consults: Consult Orders 04/18/19 11:49 Consult NOW Consulting Provider: Fabrice Treadwell Physician Instructions: Reason For Exam: right eye infection Physical Exam - Vital Signs Vital Signs: Vital Signs - Last 24 Hrs Temp Pulse Pulse Resp BP BP Pulse Ox 04/20/19 06:21 82 22 95 04/19/19 23:16 97.8 F 80 18 142/76 100 04/19/19 20:27 16 04/19/19 18:17 75 16 98 04/19/19 17:00 98.2 F 72 20 142/76 94 L 04/19/19 14:33 82 24 94 L 04/19/19 14:28 80 24 94 L 04/19/19 09:25 99 F 151/80 04/19/19 09:11 70 16 98 04/19/19 09:00 97.8 F 78 20 156/78 95 04/19/19 07:37 20 - General General Appearance: Alert (to self only), Cooperative, No acute distress, Other (Cachetic appearing on examination) Limitations: Altered mental status (disoriented to place, time, and situation) - Head Head exam: Atraumatic, Normocephalic, Normal inspection Head exam detail: negative: Abrasion, Contusion, Thomason's sign, General tenderness, Hematoma, Laceration - Eye Eye exam: Scleral icterus (Purulent discharge from the right medial canthus), Other (right eye continues to have discharge, awaiting opth consult). negative: Periorbital swelling, Periorbital tenderness - ENT ENT exam: Mucous membranes moist, Normal external ear exam Ear exam: Other (right TM occulded with cerumen). negative: Auricular hematoma, Auricular trauma Nasal Exam: Normal inspection. negative: Active bleeding, Discharge, Dried blood, Foreign body Mouth exam: negative: Drooling, Laceration, Muffled voice, Tongue elevation Teeth exam: Other (upper and lowe dentures) Throat exam: Normal inspection - Neck Neck exam: Normal inspection. negative: Lymphadenopathy, Meningismus, Tenderness - Respiratory Respiratory exam: Decreased breath sounds, Prolonged expiratory, Wheezes - Cardiovascular Cardiovascular Exam: Regular rate, Normal rhythm, Normal heart sounds Peripheral Pulses: 2+: Radial (R), Radial (L), Dorsalis Pedis (R), Dorsalis Pedis (L) - GI/Abdominal GI/Abdominal exam: Soft, Normal bowel sounds. negative: Rebound, Rigid, Tenderness - Rectal Rectal exam: Deferred - exam: Deferred - Extremities Extremities exam: Normal inspection. negative: Pedal edema, Tenderness - Back Back exam: Denies: CVA tenderness (R), CVA tenderness (L) - Neurological Neurological exam: Alert (to self only). negative: Motor sensory deficit, Oriented X3 - Psychiatric Psychiatric exam: Anxious, Normal mood, Other (pt has tangent ideas, does not answer questions asked) - Skin Skin exam: Dry, Intact (scarum covered for prevention), Normal color, Warm. negative: Abrasion Type of lesion: negative: abrasion Hospitalization - Hospitalization Admission Diagnosis: COPD exacerbation. Dementia - Problem List/Discharge Diagnosis (1) COPD exacerbation Status: Acute Base Code: J44.1 - CHRONIC OBSTRUCTIVE PULMONARY DISEASE W (ACUTE) EXACERBATION Comment: 04/20/19 -stopped steroids and pt has increased wheezing -repeat CXR ordered, continue duo neb 04/20/19 -nursing staff report pt did not sleep well, calls out but was not aggressive. easily redirected and following simple commands 04/19/19 -crackles noted, BNP ordered and pt getting Lasix 20mg IVP -continue neb tx, steroids completed 04/18/19 -wheezing improved, continue neb tx -cont steroids 04/17/19 -wheezing has improved with steroids, neb tx -continue steroids and neb tx, continue to monitor symptoms -maintain o2 sat >90% 04/16/19 -pt is wheezing audiably, neb tx QID and PRN -solumedrol 125mg IVP changed to 60mg IVP daily, transition to PO when wheezing has decreased -supplemental O2 to maintain sat >90% -continue PO aBX started outp -CXR today (2) Leukocytosis Status: Acute Base Code: D72.829 - ELEVATED WHITE BLOOD CELL COUNT, UNSPECIFIED Comment: 04/20/19 --->19.6-->13.7 -procalcitonin 0.124, no further abx indicated 04/19/19 -repeat labs pending 04/18/19 -no labs from ER to compare this visit -CXR stable, KUB ordered -UA neg -procalcitonin pending -pt does not appear in distress, possible SIRS or steroid induced (3) Dementia Status: Acute Discharge Diagnosis: Dementia type: unspecified type Dementia behavioral disturbance: with behavioral disturbance Qualified Code(s): F03.91 - Unspecified dementia with behavioral disturbance Base Code: F03.90 - UNSPECIFIED DEMENTIA WITHOUT BEHAVIORAL DISTURBANCE Comment: 04/20/19 -nursing staff reports pt did not sleep much last night, calling out but was not aggressive, easily redirected, following simple commands 04/19/19 -pt resting comfortable in bed, following simple instructions with no issues -continues to wear a brief r/t incontience issues, no aggression noted 04/18/19 -nursing reports pt is sleeping better, not using call light but does yell out for assistance -continue bed alarm, awaiting placement for d/c 04/17/19 -staff report pt is not sleeping well, calling out but not aggressive -will attempt risperdol this HS to allow pt to sleep - not present this AM -UA neg for infection 04/16/19 -pt reports worsening of symptoms in the past 2 weeks, she does not feel she is able to care for him in the home anymore, wants jail placement assistance -UA ordered, repeat labs in the AM -pt has NOT been aggressive with staff but is disoriented to time, place, and situation but maintains orientation to self but does not maintain reorientation -pt placed close to the nursing station with a bed alarm -child care centre director to assist with placment in the AM - at bedside this afternoon (4) DNR (do not resuscitate) Status: Acute Base Code: Z66 - DO NOT RESUSCITATE Comment: 04/20/19 - DNR status put in by ED, DPOA paperwork scanned to chart in the ER for DNR and designated DPOA (5) DVT prophylaxis Status: Acute Base Code: [id number] - Comment: 04/20/19 -lovenox 40mg SQ r/t age, decreased mobility and PO intake - Hospitalization Course Disposition: Senior Living Care Facility Hospital Course: 04/15/19 Pt presented to ER via EMS for refusal to take his breathing treatments at home with (via EMS). Pt was seen 04/14/19, had stable CXR for COPD, no labs. Pt reported that pt was refusing to get out of bed or take his breathing [place] tments r/t dementia. No worsening of symptoms per , pt was taking his abx, no fever, chills noted. Pt was seen in office 04/13/19 for COPD concerns, started on ABX and instructed to follow up 04/14/19 in the urgent care hours for his PCP, sats were reported by to be low and pt was transferred to [facility] ER for further evaluation of COPD exacerbation. Na 144, K 3.8, Cl 99, CO2 28, Anion gap 17, BUN 24, Cr 0.5, GFR. 60, Glucose 116, Ca 8.3 Pt given solumedrol 125mg IVP, breathing tx, supplemental O2, K supplement, NS IVF @100/hr 04/16/19 Pt is disoriented, only oriented to self and birthday. Does not maintain orientation when updated. not present this AM until lunch. Nursing reports pt is calm through the evening and this AM, assisted with breakfast, bed alarm present. Pt being assisted with toileting, urinating in brief last night but this AM asked to urinate and had BM on commode. Pt has PULLIAM, audible wheezing but is not aggressive. Pt skin intact but duoderm applied to sacrum r/t thin skin and cintia prominence but no breakdown noted. present at lunch, pt is noticeably more agitated with her at bedside, assisting with lunch. Concerns for caregiver burn out as is short with instructions for pt to stop interrupting and to eat his lunch but no current concerns with caregiver abuse. has toured [facility] in [place] for intermediate frame tender care placement, cost is $5,500 monthly and they do not have jail care insurance but have supplemental. declines assisted living placement for her, wishing to remain in the home at this time. Continue COPD exacerbation tx, repeating K this afternoon and AM labs. Repeat CXR this visit. UA ordered and pending as pt reports recent memory decline in the past 2 weeks. Denies any aggression in the home but that pt is refusing to get out of bed, sleeping all the time, and refusing breathing treatments but takes his pills. nursing coordinator to speak with tomorrow for jail planning. PCP Mila Procedures: Imaging and X-Rays 04/16/19 12:17 CXR [CHEST 2 VIEWS] [RAD] Stat 04/17/19 09:47 ABDOMEN 1 VIEW [RAD] Stat 04/20/19 06:27 CHEST 2 VIEWS [RAD] Stat Abnormal Labs: Abnormal Lab Results 04/16/19 04/16/19 04/16/19 Range/Units 05:55 11:53 17:15 WBC (4.2-12.2) K/uL RBC (4.40-5.70) M/uL Hgb (14.0-18.0) gm/dl Hct (42.0-52.0) % MCHC (32-36) g/dl RDW (11.5-14.5) % Neutrophils % (47-80) % Lymphocytes % (16-45) % Lymphocytes (16-45) % Potassium 3.3 L (3.4-4.5) mmol/L Carbon Dioxide (22-29) mmol/L Anion Gap 17.0 H (7-16) BUN 24 H (8-23) mg/dL Creatinine 0.5 L (0.7-1.2) mg/dL Random Glucose 116 H (74-109) mg/dL Calcium 8.3 L (8.8-10.2) mg/dL NT-Pro-B Natriuret Pep (<450) pg/mL Urine Ketones 15 mg/dl H (NEGATIVE) Urine Bilirubin Small H (NEGATIVE) 04/17/19 04/17/19 04/18/19 Range/Units 06:20 06:20 12:05 WBC 20.0 H 19.6 H (4.2-12.2) K/uL RBC 4.03 L (4.40-5.70) M/uL Hgb 11.2 L 12.8 L (14.0-18.0) gm/dl Hct 36.0 L 40.4 L (42.0-52.0) % MCHC 31.1 L 31.7 L (32-36) g/dl RDW 17.3 H 17.3 H (11.5-14.5) % Neutrophils % 86.0 H 93.0 H (47-80) % Lymphocytes % 7.7 L 4.2 L (16-45) % Lymphocytes 7.0 L 4.0 L (16-45) % Potassium 3.2 L (3.4-4.5) mmol/L Carbon Dioxide (22-29) mmol/L Anion Gap (7-16) BUN (8-23) mg/dL Creatinine 0.4 L (0.7-1.2) mg/dL Random Glucose 141 H (74-109) mg/dL Calcium 8.6 L (8.8-10.2) mg/dL NT-Pro-B Natriuret Pep (<450) pg/mL Urine Ketones (NEGATIVE) Urine Bilirubin (NEGATIVE) 04/18/19 04/19/19 04/19/19 Range/Units 12:05 09:50 09:50 WBC 13.7 H (4.2-12.2) K/uL RBC 4.26 L (4.40-5.70) M/uL Hgb 12.1 L (14.0-18.0) gm/dl Hct 38.4 L (42.0-52.0) % MCHC 31.5 L (32-36) g/dl RDW 17.4 H (11.5-14.5) % Neutrophils % 81.0 H (47-80) % Lymphocytes % (16-45) % Lymphocytes 12.0 L (16-45) % Potassium (3.4-4.5) mmol/L Carbon Dioxide 35.0 H (22-29) mmol/L Anion Gap 6.0 L (7-16) BUN (8-23) mg/dL Creatinine 0.5 L 0.4 L (0.7-1.2) mg/dL Random Glucose (74-109) mg/dL Calcium (8.8-10.2) mg/dL NT-Pro-B Natriuret Pep 799.50 H (<450) pg/mL Urine Ketones (NEGATIVE) Urine Bilirubin (NEGATIVE) Condition at Discharge: (2) Stable Discharge Medications - Discharge Medications Home Medications: Ambulatory Orders Latanoprost [Xalatan] 1 drop OP QHS 03/16/15 [Last Taken 1 Day Ago ~02/23/19] Multivitamin [Multiple Vitamins] 1 each PO DAILY 11/12/17 [Last Taken 02/24/19] Albuterol Sulfate [Proair Hfa] 1 - 2 puff IH .EVERY 4-6 HOURS PRN 05/16/18 [Last Taken 2 Days Ago ~02/22/19] Budesonide/Formoterol Fumarate [Symbicort 160-4.5 Mcg Inhaler] 10.2 gm IH BID PRN 05/16/18 [Last Taken 3 Days Ago ~02/21/19] Lutein 3 mg PO DAILY 05/16/18 [Last Taken 02/24/19] Mv-Min/FA/Vit K/Lycop/Lut/Zeax [Ocuvite Eye Plus Multi Tablet] 1 each PO DAILY 05/16/18 [Last Taken 02/24/19] [place]-3 Fatty Acids/Fish Oil [Fish Oil 1,000 mg Capsule] 1 each PO DAILY 05/16/18 [Last Taken 1 Day Ago ~02/23/19] Teriparatide [Forteo] 2.4 ml SQ QHS 05/16/18 [Last Taken 1 Day Ago ~02/23/19] Vitamin E 100 unit PO DAILY 05/16/18 [Last Taken 02/24/19] Acetaminophen [Tylenol 325Mg] 650 mg PO Q4H PRN tablet 05/17/18 [Last Taken 12/08/18] Albuterol Sulfate 0.083% [Neb] [Albuterol Sulfate] 2.5 mg INH RESP.Q2H PRN nebulization solution 04/20/19 [Last Taken Unknown] Ipratropium/Albuterol [Duoneb] 3 ml INH RESP.Q4H.WA ampul.neb 04/20/19 [Last Taken Unknown] Nystatin [Nystop] 5 gm TP TID powder 04/20/19 [Last Taken Unknown] Ofloxacin [Floxin] 1 drop OPTH QID btl 04/20/19 [Last Taken Unknown] Risperidone [Risperadol] 1 mg PO QHS tablet 04/20/19 [Last Taken Unknown] Discharge Plan - Discharge Instructions Activity at Discharge: As Per Physical Therapy, Increase Activity as Tolerated Diet at Discharge: Regular Diet Instructions: Hypokalemia (DC), COPD (Chronic Obstructive Pulmonary Disease) (DC) Additional Instructions: Follow up with Eye doctor next week. Continue medications as discussed Quality Measures - Quality Measures Quality Measures: Advance Directives, Documentation of Current Medications in Medical Record, Elder Maltreatment Screen and Follow-Up Plan, Screening for High Blood Pressure and F/U Documented - Current Medications Quality Measure: Measure #130: Documentation of Current Medications Documentation of Current Medications: <Current Medications Documented/Reviewed> [G8427] - Blood Pressure Screening Quality Measure: Screening for High Blood Pressure and Follow-Up Documented Does Patient Have Any of the Following: Active Dx of HTN Blood Pressure Classification: Pre-Hypertensive BP Reading Systolic Measurement: 151 Diastolic Measurement: 80 Screening for High Blood Pressure: Patient Exclusion, Hx of HTN [G9744] - Advance Directives Quality Measure: Measure #47: Care Plan Advance Directives Established: No Advance Directives Information Provided To Patient: No Advance Directives on File: No Living Will: No Power of Utilization Review Nurse: Yes Power of Utilization Review Nurse Name: KELI SHETTY - Elder Abuse Suspicion Index Screening: Elder Abuse Suspicion Index Screening Rely on people for bathing, dressing, shopping, banking, etc: Yes Prevented from getting food, clothes, medication, etc: No Made to feel shamed or threatened by someone: No Forced to sign papers or use money against will: No Feel afraid, touched in ways not wanted or hurt physically: No Poor eye contact, withdrawn, malnourished, cuts or bruises: No Screening Result: Negative result EASI Reference Information: Lucita BREEN, Elly C, Patti D, Alex Baltazar.Development and validation of a tool to assist physicians identification of elder abuse: The Elder Abuse Suspicion Index (EASI ). Journal of Elder Abuse and Neglect, 2008; 20 (3): 276-300. - Elder Maltreatment Screen Quality Measures: Elder Maltreatment Screen and Follow-Up Plan Elder Maltreatment Screen: <Negative, No Follow-Up Plan Required> [G8734] <DAREK HUTCHINSON - Last Filed: 05/01/19 13:00> Providers Date of admission: 04/15/19 18:42 Attending physician: DAREK HUTCHINSON Primary care physician: STEVE MART D.O. Consults: Consult Orders 04/18/19 11:49 Consult NOW Consulting Provider: Fabrice Treadwell Physician Instructions: Reason For Exam: right eye infection Hospitalization - Hospitalization Course Procedures: Imaging and X-Rays 04/16/19 12:17 CXR [CHEST 2 VIEWS] [RAD] Stat 04/17/19 09:47 ABDOMEN 1 VIEW [RAD] Stat 04/20/19 06:27 CHEST 2 VIEWS [RAD] Stat Abnormal Labs: Abnormal Lab Results 04/16/19 04/16/19 04/16/19 Range/Units 05:55 11:53 17:15 WBC (4.2-12.2) K/uL RBC (4.40-5.70) M/uL Hgb (14.0-18.0) gm/dl Hct (42.0-52.0) % MCHC (32-36) g/dl RDW (11.5-14.5) % Neutrophils % (47-80) % Lymphocytes % (16-45) % Lymphocytes (16-45) % Potassium 3.3 L (3.4-4.5) mmol/L Carbon Dioxide (22-29) mmol/L Anion Gap 17.0 H (7-16) BUN 24 H (8-23) mg/dL Creatinine 0.5 L (0.7-1.2) mg/dL Random Glucose 116 H (74-109) mg/dL Calcium 8.3 L (8.8-10.2) mg/dL NT-Pro-B Natriuret Pep (<450) pg/mL Urine Ketones 15 mg/dl H (NEGATIVE) Urine Bilirubin Small H (NEGATIVE) 04/17/19 04/17/19 04/18/19 Range/Units 06:20 06:20 12:05 WBC 20.0 H 19.6 H (4.2-12.2) K/uL RBC 4.03 L (4.40-5.70) M/uL Hgb 11.2 L 12.8 L (14.0-18.0) gm/dl Hct 36.0 L 40.4 L (42.0-52.0) % MCHC 31.1 L 31.7 L (32-36) g/dl RDW 17.3 H 17.3 H (11.5-14.5) % Neutrophils % 86.0 H 93.0 H (47-80) % Lymphocytes % 7.7 L 4.2 L (16-45) % Lymphocytes 7.0 L 4.0 L (16-45) % Potassium 3.2 L (3.4-4.5) mmol/L Carbon Dioxide (22-29) mmol/L Anion Gap (7-16) BUN (8-23) mg/dL Creatinine 0.4 L (0.7-1.2) mg/dL Random Glucose 141 H (74-109) mg/dL Calcium 8.6 L (8.8-10.2) mg/dL NT-Pro-B Natriuret Pep (<450) pg/mL Urine Ketones (NEGATIVE) Urine Bilirubin (NEGATIVE) 04/18/19 04/19/19 04/19/19 Range/Units 12:05 09:50 09:50 WBC 13.7 H (4.2-12.2) K/uL RBC 4.26 L (4.40-5.70) M/uL Hgb 12.1 L (14.0-18.0) gm/dl Hct 38.4 L (42.0-52.0) % MCHC 31.5 L (32-36) g/dl RDW 17.4 H (11.5-14.5) % Neutrophils % 81.0 H (47-80) % Lymphocytes % (16-45) % Lymphocytes 12.0 L (16-45) % Potassium (3.4-4.5) mmol/L Carbon Dioxide 35.0 H (22-29) mmol/L Anion Gap 6.0 L (7-16) BUN (8-23) mg/dL Creatinine 0.5 L 0.4 L (0.7-1.2) mg/dL Random Glucose (74-109) mg/dL Calcium (8.8-10.2) mg/dL NT-Pro-B Natriuret Pep 799.50 H (<450) pg/mL Urine Ketones (NEGATIVE) Urine Bilirubin (NEGATIVE) 04/20/19 Range/Units 06:55 WBC (4.2-12.2) K/uL RBC (4.40-5.70) M/uL Hgb (14.0-18.0) gm/dl Hct (42.0-52.0) % MCHC (32-36) g/dl RDW (11.5-14.5) % Neutrophils % (47-80) % Lymphocytes % (16-45) % Lymphocytes (16-45) % Potassium (3.4-4.5) mmol/L Carbon Dioxide 31.0 H (22-29) mmol/L Anion Gap (7-16) BUN (8-23) mg/dL Creatinine 0.5 L (0.7-1.2) mg/dL Random Glucose (74-109) mg/dL Calcium (8.8-10.2) mg/dL NT-Pro-B Natriuret Pep (<450) pg/mL Urine Ketones (NEGATIVE) Urine Bilirubin (NEGATIVE) Quality Measures - Quality Measures Quality Measures: Advance Directives, Documentation of Current Medications in Medical Record, Elder Maltreatment Screen and Follow-Up Plan, Screening for High Blood Pressure and F/U Documented - Current Medications Quality Measure: Measure #130: Documentation of Current Medications - Blood Pressure Screening Quality Measure: Screening for High Blood Pressure and Follow-Up Documented Blood Pressure Classification: Pre-Hypertensive BP Reading Systolic Measurement: 151 Diastolic Measurement: 80 Screening for High Blood Pressure: < Pre-Hypertensive BP, F/U Documented > [G8950] Pre-Hypertensive Follow-up Interventions: Follow-up with rescreen every year. - Advance Directives Quality Measure: Measure #47: Care Plan Advance Care Planning: <Care Plan/Decision Maker Not Decided; Discussed & Documented> [1124F] - Elder Abuse Suspicion Index Screening: Elder Abuse Suspicion Index Screening Screening Result: Negative result EASI Reference Information: Lucita BREEN, Elly C, Patti D, Alex Baltazar.Development and validation of a tool to assist physicians identification of elder abuse: The Elder Abuse Suspicion Index (EASI ). Journal of Elder Abuse and Neglect, 2008; 20 (3): 276-300. - Elder Maltreatment Screen Quality Measures: Elder Maltreatment Screen and Follow-Up Plan
[2019-04-20 08:03] LABS: BLOOD UREA NITROGEN 12 mg/dL (8-23)
[2019-04-20 08:04] LABS: CREATININE 0.5 mg/dL (0.7-1.2); EST GLOMERULAR FILTRATION RATE > 60 mL/min
[2019-04-20 08:06] LABS: GLUCOSE,RANDOM 91 mg/dL (74-109)
--- NOTE | 2019-04-20 10:04 | RADIOLOGY REPORT ---
EXAM: CHEST, TWO VIEWS HISTORY: DIMINISHED LUNG SOUNDS WITH WHEEZING. TECHNIQUE: Two views of the chest were obtained. Comparison: 04/16/19. FINDINGS: The heart is of normal size. The patient is rotated to the left. Inspiration is satisfactory. There is no evidence of pneumonia, effusion, edema or pneumothorax. Skeletal structures appear unremarkable. IMPRESSION: NO EVIDENCE OF ANY ACUTE SPECIFIC CHEST PATHOLOGY. JOB NUMBER: [id number] [facility]
[2019-04-20] MEDS: ENOXAPARIN 40 MG/0.4 ML SYR SQ SCH (10:20)
[2019-04-20] MEDS: MULTIVITAMINS/MINERALS TABLET PO SCH (10:21)
[2019-04-20] MEDS: NYSTATIN 15 GM POWDER TP SCH (10:23)
[2019-04-20] MEDS: OFLOXACIN 0.3% 5 ML OPTH SOLN OPTH SCH (10:23)
[2019-04-20] MEDS: MAGNESIUM HYDROXIDE TOP SCH ×3 (10:24)
[2019-04-20] MEDS: AL HYDROX TOP SCH ×3 (10:24)
[2019-04-20] MEDS: ZINC OXIDE TOP SCH ×3 (10:24)
[2019-04-20] MEDS: NYSTATIN TOP SCH ×3 (10:24)
--- NOTE | 2019-04-23 09:12 | Medical Records Consult ---
REASON FOR CONSULTATION: Ophthalmology consultation is obtained to evaluate for infection in the right eye. HISTORY OF PRESENT ILLNESS: The patient is an 89-year-old white male with a history of significant ocular disease including age-related macular degeneration for which he has received ocular injections. There is a history of eyelid surgery as well. The patient is currently using erythromycin ophthalmic ointment for discharge in the right eye but it has not improved. PHYSICAL EXAMINATION: On examination, there is noted to be tight skin around the 4 eyelids. There is mild medial ectropion of the right lower eyelid. There is punctal ectropion noted as well. There is also moderate purulent discharge noted in the right eye; however, there is no evidence of significant ocular injection. IMPRESSION: It appears that this patient has refractory bacterial conjunctivitis in the right eye. PLAN: I recommended that he discontinue his erythromycin ophthalmic ointment and begin ofloxacin ophthalmic q.i.d. for 1 week. He may be prone to recurrent infection due to his eyelid ectropion. However, the broad-spectrum antibiotic may improve the situation as well. He was advised to evaluate with his regular fence rider following discharge. RADHA
== END 2019-04-20 14:33 | DRG 191 ==
LOC: ER 18:01 → MEDSURG 18:42
PROVIDERS: ADMIT Internal Medicine; ATTEND Internal Medicine
DX: J44.1 Chronic obstructive pulmonary disease with (acute) exacerbation (principal); F03.91 Unspecified dementia, unspecified severity, with behavioral disturbance; D72.829 Elevated white blood cell count, unspecified; E87.6 Hypokalemia; R06.00 Dyspnea, unspecified; N40.0 Benign prostatic hyperplasia without lower urinary tract symptoms; M19.042 Primary osteoarthritis, left hand; M19.041 Primary osteoarthritis, right hand; Z66 Do not resuscitate; Z87.891 Personal history of nicotine dependence
CPT/HCPCS: 71046; 74018; 80048; 81003; 83880; 84132; 84145; 85027; 94640; 94760; 94761; 96374; 99223; 99233; 99239; 99285; J1650; J1940; J2930

== ENCOUNTER 2019-07-16 08:04 | Day surgery (SDC) | payer MEDICARE, BC ==
[~2019-07-16 08:04] MED LIST: ACETAMINOPHEN 1,000 MG/100 ML BTL IVPB ONE; CEFAZOLIN 2 Gram 2 GM/50 ML BAG IVPB ONE
[2019-07-16] MEDS ORDERED: 0.9 % SODIUM CHLORIDE 10 ML VIAL IVP ONE (08:05)
[2019-07-16] MEDS ORDERED: PROPOFOL 10 MG/ML VIAL IV ONE (08:05)
[2019-07-16] MEDS ORDERED: DEXAMETHASONE 4 MG/ML 1ML VIAL IVP ONE (08:05)
[2019-07-16] MEDS ORDERED: LIDOCAINE 2% MDV (20MG/ML) 20ML VIAL IV ONE (08:05)
[2019-07-16] MEDS ORDERED: FENTANYL PF 100MCG/2ML VIAL IV ONE (08:05)
[2019-07-16] MEDS ORDERED: ROPIVACAINE HCL (NAROPIN) /PF 5MG/ML 20ML VIAL IV ONE (08:05)
[2019-07-16] MEDS ORDERED: RINGERS SOLUTION,LACTATED 1,000 ML IV ONE (08:40)
[2019-07-16] MEDS ORDERED: BUPIVACAINE 0.25% W/EPI MPF 30ML VIAL SQ ONE (10:25)
--- NOTE | 2019-07-17 10:20 | Operative Note ---
DATE OF SURGERY: 07/16/2019 SURGEON: Luis Felipe Riddle DO PREOPERATIVE DIAGNOSIS: Reducible right inguinal hernia. POSTOPERATIVE DIAGNOSIS: Reducible right inguinal hernia, direct. OPERATION: Open right inguinal herniorrhaphy with mesh. PROCEDURE: The patient is an 89-year-old male who was brought to the operating room and placed in a supine position. Local with IV sedation was given per the department of anesthesia. The patient's right inguinal region was shaved of hair and prepped and draped in a sterile fashion. He had undergone a preoperative block. I did anesthetize his skin with an additional 10 mL of 0.25% Sensorcaine with epinephrine. A 3 cm incision was made. This was carried down through the subcutaneous tissues to the aponeurosis of the external oblique. This was cleaned off. A cayden was made with a scalpel blade and enlarged through the superficial inguinal ring with Metzenbaum scissors. Care was taken not to injure the underlying ilioinguinal nerve or spermatic cord. At this time, superior and inferior flaps were developed and a Cullom was placed on the spermatic cord. This was dissected free from the underlying transversalis fascia. The floor was inspected. There was a small indirect hernia noted. This was reduced and imbricated with 0 Ethibond. Cremasteric fibers were taken down. There was no indirect hernia sac noted. There was a small cord lipoma. High ligation was done with the cord lipoma. At this time, a right-sided ProGrip mesh was obtained. This was placed covering the floor of the inguinal canal on the right. The mesh overlapped the pubic tubercle well. Sutures went to the level of pubic tubercle, the internal oblique aponeurosis, and the inguinal ligament. At this time, the aponeurosis was closed over the cord with 2-0 Vicryl, the Anand layer was closed with 3-0 Vicryl, and skin was closed with 4-0 Vicryl. The patient was taken to the recovery room in stable condition. FINDINGS ON SURGERY: Right inguinal hernia, direct, repaired as above. MTDD
== END 2019-07-16 11:14 | disposition home or self-care (01) ==
LOC: SUR 08:04
PROVIDERS: ATTEND Surgery
DX: K40.90 Unilateral inguinal hernia, without obstruction or gangrene, not specified as recurrent (principal)
CPT/HCPCS: 76942; J7120